=== PATIENT | female | born 1950 | race Caucasian/White ===

== ENCOUNTER 2024-01-07 11:13 | Outpatient (AMB) | payer MEDICARE, OTHER, SELFPAY ==
--- NOTE | 2024-01-07 11:15 | A.OFFPC_ITS ---
Vital Signs 01/07/24 11:16 Height 5 ft 5 in Weight 171 lb BMI 28.5 BP 118/62 Blood Pressure Location Lt brachial Position Sitting Respiration 12 Pulse 77 Pulse Source Pulse Oximeter Pulse Oximetry (%) 100 Oxygen Delivery Method Room Air Intake Visit Reasons: new patient/ FU DIZZY Intake Note: I am so. Patient was seen at [facility] ER and had an MRI. Orthophoto Tech/Draftsman Required: No Accompanied by: Self / Same As Patient Allergies zpack Allergy (Severe, Uncoded 01/07/24 11:29) Diarrhea Medication List - Last Reconciled 01/07/24 by Shirley Osman MD amlodipine 10 mg PO DAILY calcium carbonate 1,200 mg PO DAILY cholecalciferol (vitamin D3) 25 mcg PO DAILY coQ10 (ubiquinol) (Qunol Jarrod CoQ10) 300 mg PO DAILY hydrochlorothiazide 25 mg PO QAM moexipril 15 mg PO DAILY pravastatin 20 mg PO DAILY prednisone 40 mg (2 x 20 mg) PO DAILY 5 days Tobacco use date assessed: 01/07/24 Fall risk assessment: No Falls in past year Last assessed Fall Risk: 01/07/24 Dental Screening Dental Screen Date: 01/07/24 Did you have a dental visit in the last 12 months?: Yes Did you have a dental problem in the last 6 months where you did not have access to dental care?: No Was dental information given to patient?: Patient has dentist HPI HPI Comments History of Present Illness Details The patient is a 73 year old female with a past medical history of hypertension, hyperlipidemia, RAMONE, osteoarthritis, follow-up Cardiovascular: On Norvasc 10 mg daily, moexipril 15 mg daily, hydrochlorothia zide 25 mg daily, pravastatin, Co Q10. She denies chest pain, palpitations. No exertional dyspnea. In 2022 experienced some palpitations. Saw Cardiology Dr. West. She had a heart monitor study without worrisome arrhythmia She has been having issues with vertigo since January 2023. I put in a referral to vestibular rehab at our last visit in August. She has had a nuclear stress test, echo and MRI. She was seen in the ER on November 29 2023 after presenting for dizziness. It had worsened for the month prior. Precipitated by head movements. ACS work up negative. Troponin 14. CT without acute cranial pathology and CTA without proximal occlusion or high-grade stenosis in the major arteries of the head and neck. She was discharged on meclizine She would like to do vestibular rehab again but forgets the name of the facility she would like to go to and plans to call with that information MSK: Bilateral shoulder pain. Her right hand pulse is asleep. Right wrist pain. Pain in the base of the metatarsophalangeal between the 3rd and 2nd toes. Increased bilateral knee pain for the past 6 weeks. No swelling or redness. Does a lot of yard work and gardening RAMONE: On CPAP. Says she had a study performed yesterday Mammo 06/22/2023 Cologuard 01/2022 ROS see HPI PHYSICAL EXAM: GENERAL: Alert and oriented x 3. NAD EYES: EOMI. Anicteric. HENT: Moist mucous membranes. No scleral icterus. No cervical lymphadenopathy. LUNGS: Clear to auscultation bilaterally. CARDIOVASCULAR: Regular rate and rhythm. No murmur. No JVD. ABDOMEN: Soft, non-tender +bs EXTREMITIES: No edema. Non-tender. SKIN: No rashes or lesions. Warm. NEUROLOGIC: No focal neurological deficits. CN II-XII grossly intact PSYCHIATRIC: Cooperative. Appropriate mood and affect. 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 1. Little interest or pleasure in doing things: not at all 2. Feeling down, depressed, or hopeless: not at all 3. Trouble falling or staying asleep, or sleeping too much: not at all 4. Feeling tired or having little energy: not at all 5. Poor appetite or overeating: not at all 6. Feeling bad about yourself - or that you are a failure or have let yourself or your family down: not at all 7. Trouble concentrating on things, such as reading the newspaper or watching television: not at all 8. Moving or speaking so slowly that other people could have noticed. Or the opposite - being so fidgety or restless that you have been moving around a lot more than usual: not at all 9. Thoughts that you would be better off or of hurting yourself in some way: not at all Total score: 0 Depression Screening Interpretation: Negative (Neg) Depression Screening Done: Yes 49675 - PHQ-9 Billing: Yes Source: Developed by Drs. Todd Coombs, Evangelina Galvin, Morgan Grant and colleagues, with an educational dena from [employer]. Thrive Questionnaire Date Thrive assessed: 01/07/24 I am a: Patient What is your living situation today?: I have a steady place to live Within the past 12 months, did the food you bought not last and you didn't have the money to get more?: Never true Within the past 12 months, did you worry whether your food would run out before you got money to buy more?: Never true Do you have trouble paying for medicines?: No Do you have trouble getting transportation to medical appointments?: No Do you have trouble paying your heating and electricity bill?: No Do you have trouble taking care of your child, family member or friend?: No Do you have trouble with day-to-day activities such as bathing, preparing meals, shopping, managing finances, etc.?: No Are you currently unemployed and looking for a job?: No Are you interested in more education?: Yes Please select the resources that you would like help with: None Currently or been in a relationship where the following occur: No concerns reported THRIVE Score: 0 AUDIT C Alcohol Use Questionnaire (AUDIT-C) 1. How often do you have a drink containing alcohol?: 2-3 times a week 2. How many drinks containing alcohol do you have on a typical day when you are drinking?: 1 or 2 3. How often do you have six or more drinks on one occasion?: Never Total Score: 3 YUNIOR-7 AMB Questionnaire YUNIOR-7 Date YUNIOR - 7 assessed: 01/07/24 Feeling nervous, anxious, or on edge: 0 = Not at all Not being able to stop or control worryin = Not at all Worrying too much about different things: 0 = Not at all Trouble relaxin = Not at all Being so restless that it is hard to sit still: 0 = Not at all Becoming easily annoyed or irritable: 0 = Not at all Feeling afraid as if something awful might happen: 0 = Not at all Total YUNIOR-7 score (0-4 normal; 5-9 mild; 10-14 moderate; 15-21 severe): 0 Source: Developed by Drs. Todd Coombs, Evangelina Galvin, Morgan Grant and colleagues, with an educational dena from [employer]. YUNIOR-7 Assessment Billing YUNIOR-7 Assessment Tool: YUNIOR-7 Assessment 12681 Physical exam (Primary Care) Vital Signs: Last Vital Signs Pulse 77 01/07/24 11:16 Resp 12 01/07/24 11:16 BP 118/62 01/07/24 11:16 Pulse Ox 100 01/07/24 11:16 Oxygen Delivery Method Room Air 01/07/24 11:16 BMI result Body Mass Index 28.5 Tobacco/Smoking Status: Tobacco use Status Tobacco use date assessed 01/07/24 01/07/24 11:35 Patient Tobacco Use Status Never used Tobacco 01/07/24 11:35 e-Cigarette/Vaping Use Never Used 01/07/24 11:35 PHQ-9: PHQ-9 Score PHQ-9: Total score 0 01/07/24 11:59 Depression Screening Interpretation: Negative (Neg) Thrive Assessment: Date of Thrive Assessment Date Thrive assessed 01/07/24 01/07/24 11:15 Currently or been in a relationship where the following occur: No concerns reported Assessment and Plan Assessment & Plan (1) Prediabetes: Code(s): R73.03 - Prediabetes Plan: Check A1C. Low carb diet (2) BPPV (benign paroxysmal positional vertigo): Code(s): H81.10 - Benign paroxysmal vertigo, unspecified ear Qualifiers: Laterality: unspecified laterality Qualified Code(s): H81.10 - Benign paroxysmal vertigo, unspecified ear (3) Bilateral knee pain: Code(s): M25.561 - Pain in right knee; M25.562 - Pain in left knee Qualifiers: Chronicity: acute Qualified Code(s): M25.561 - Pain in right knee; M25.562 - Pain in left knee Plan: Will trial prednisone course. Would consider ortho if no improvement on prednisone (4) Hypertension: Code(s): I10 - Essential (primary) hypertension Qualifiers: Hypertension type: primary hypertension Qualified Code(s): I10 - Essential (primary) hypertension Plan: Controlled Orders: Orders Hemoglobin A1c Today E78.5 - Hyperlipidemia, unspecified, I10 - Essential (primary) hypertension, I65.29 - Occlusion and stenosis of unspecified carotid artery, R53.83 - Other fatigue Lyme IgG/IgM w/reflex to WB Today H81.10 - Benign paroxysmal vertigo, unspecified ear, M25.561 - Pain in right knee, M25.562 - Pain in left knee Vitamin B12 and Folate Today E78.5 - Hyperlipidemia, unspecified, I65.29 - Occlusion and stenosis of unspecified carotid artery, R53.83 - Other fatigue Comprehensive Met. Panel Today E78.5 - Hyperlipidemia, unspecified, I10 - Essential (primary) hypertension, I65.29 - Occlusion and stenosis of unspecified carotid artery, R53.83 - Other fatigue Medications: New prednisone 40 mg (2 x 20 mg) PO DAILY 5 days 10 tabs 0RF Coding Level of Care Code Est Pt Level 5 (65122) Diagnoses Prediabetes R73.03 Benign paroxysmal positional vertigo, unspecified laterality H81.10 Laterality: unspecified laterality Acute pain of both knees M25.561; M25.562 Chronicity: acute Primary hypertension I10 Hypertension type: primary hypertension Additional Codes UYNIOR-7 Assessment Billing - YUNIOR-7 Assessment Tool: YUNIOR-7 Assessment 33095 ([id number]) Time Spent (min) 52
[2024-01-07 11:16] VITALS: BP 118/62; PULSE 77; RESP 12; O2SAT 100; BMI 28.5
== END 2024-01-07 12:24 | disposition home or self-care (01) ==
PROVIDERS: PCP Internal Medicine; Visit Provider Internal Medicine
DX: R73.03 Prediabetes (principal); H81.13 Benign paroxysmal vertigo, bilateral; M25.561 Pain in right knee; M25.562 Pain in left knee; I10 Essential (primary) hypertension
CPT/HCPCS: 99215

== ENCOUNTER 2024-01-10 07:59 | Outpatient (REF) | payer MEDICARE, OTHER, SELFPAY ==
[2024-01-10 12:15] LABS: Estimated Average Glucose 114 mg/dL; Hemoglobin A1C 136.0797 umol/L; Hemoglobin A1c % 5.6 % (<6.0)
[2024-01-10 12:31] LABS: Folate 14.3 ng/mL (> or = 4.0); Vitamin B12 537 pg/mL (200-900)
[2024-01-10 12:38] LABS: Alanine Aminotransferase 23 U/L (0-31); Albumin Level 4.5 g/dL (3.5-5.0); Alkaline Phosphatase 75 U/L (39-117); Anion Gap 14 (12-20); Aspartate Amino Transferase 28 U/L (5-31); Bilirubin Total 0.8 mg/dL (0.0-1.0); Blood Urea Nitrogen 16 mg/dL (9-16); Calcium 10.2 mg/dL (8.4-10.2); Carbon Dioxide 28 mmol/L (22-29); Chloride 103 mmol/L (96-108); Estimated Glomerular Filt Rate > 60; Glucose Random 88 mg/dL (60-115); Potassium 3.4 mmol/L (3.3-5.1); Sodium 142 mmol/L (135-145); Total Protein 7.6 g/dL (6.5-8.0)
[2024-01-11 21:58] LABS: Lyme Abs Screen <0.90 index
== END 2024-01-10 08:00 | disposition home or self-care (01) ==
LOC: HO.WFDLDS 07:59
PROVIDERS: Visit Provider Internal Medicine
DX: R53.83 Other fatigue (principal); E78.5 Hyperlipidemia, unspecified; I65.29 Occlusion and stenosis of unspecified carotid artery; I10 Essential (primary) hypertension; M25.561 Pain in right knee; M25.562 Pain in left knee; H81.10 Benign paroxysmal vertigo, unspecified ear; Z13.1 Encounter for screening for diabetes mellitus
CPT/HCPCS: 36415; 80053; 82607; 82746; 83036; 86617; 86618

== ENCOUNTER 2024-03-07 08:00 | Outpatient (RCR) | payer MEDICARE, OTHER, SELFPAY ==
[2024-01-27 07:00] VITALS: BP 106/64; PULSE 86; O2SAT 98
--- NOTE | 2024-01-27 12:47 | MHC.PT.EP ---
[facility] [place] Office [place] Office [place] Office [address] Dorothy Ocampo [address] [phone] F: [phone] F: [phone] F: [phone] F: [phone] Physical Therapy Plan of Care Date of Evaluation: 01/27/24 Date of Surgery: n/a Diagnosis: H81.10 Benign paroxysmal positional vertigo, unspecified ear BPPV, vestibular rehab 2-3x/week for 2 weeks signed by Shirley Osman MD 01/20/24 Assessment: Pt is a RHD 73 y/o female, referred to PT from PCP Dr. Osman for treatment of H81.10 Benign paroxysmal positional vertigo, unspecified ear BPPV, vestibular rehab 2-3x/week for 2 weeks signed by Shirley Osman MD 01/20/24. Pt has had cardiac workup including: Details The patient is a 73 year old female with a past medical history of hypertension, hyperlipidemia, RAMONE, osteoarthritis, follow-up Cardiovascular: On Norvasc 10 mg daily, moexipril 15 mg daily, hydrochlorothiazide 25 mg daily, pravastatin, Co Q10. She denies chest pain, palpitations. No exertional dyspnea. In 2022 experienced some palpitations. Saw Cardiology Dr. West. She had a heart monitor study without worrisome arrhythmia. She has been having issues with vertigo since January 2023. I put in a referral to vestibular rehab at our last visit in August. She has had a nuclear stress test, echo and MRI. She was seen in the ER on November 29 2023 after presenting for dizziness. It had worsened for the month prior. Precipitated by head movements. ACS work up negative. Troponin 14. CT without acute cranial pathology and CTA without proximal occlusion or high-grade stenosis in the major arteries of the head and neck. She was discharged on meclizine. Pt exhibits negative Baudilio Hallpike screening L>R, negative Romberg test, negative oculomotor screen. She (+) R cervical quadrant testing, mild pain/ache with R UT region, tightness was formerly swimming not as much recently. Pt may benefit from attending skilled PT services 1-2x/week for a gentle cervical stab/stretching/ postural program to improve sx and reduce neck pain. Pt reports recently performing some overhead work removing screens, gardening tasks which seem to have irritated her neck. She reports some parathesias in her R hand, at times but denies radiating parathesias sx down her shoulder<> forearm. Post evaluation we discussed use of a lumbar roll and positions to ease her neck pain with reading. She was educated re: negative screening of [place] Hallpike/BPPV at time of initial evaluation. Frequency and Duration: The patient will be seen 2x/week x 2 weeks Short Term Goals: 1. No vertigo with bed mobility. 2. Pt will express 25% reduction in neck pain on the right side. 3. Pt will demonstrate L cervical rotation to 60 degrees. 4. Pt will increase strength of scapular stabilizers to 4/5. Investigator Operator Goals: 1. I HEP for postural/cervical stab program. 2. Improve length of pectoralis musculature by 25%. 3. Pt will improve strength of lower trap/middle trap by 5/5. 4. Pt will demonstrate good body mechanics 3:3 trials. 5. Rise from squat position with good balance. Treatment Plan: Modalities to reduce pain, spasms and effusion. Manual therapy to restore motion and function. Therapeutic exercise to improve strength and flexibility. Neuromuscular re-education for posture and balance. Therapeutic activities to return to functional activities of daily living. Electronically signed by: Mariana Smart, PT, DPT Please sign and return to therapist. Thank you for your referral.
--- NOTE | 2024-02-01 12:40 | MHC.PT.EP ---
[facility] [place] Office [place] Office [place] Office [address] Dorothy Ocampo [address] [phone] F: [phone] F: [phone] F: [phone] F: [phone] Physical Therapy Plan of Care Date of Evaluation: 01/27/24 Date of Surgery: n/a Diagnosis: H81.10 Benign paroxysmal positional vertigo, unspecified ear BPPV, vestibular rehab 2-3x/week for 2 weeks signed by Shirley Osman MD 01/20/24 Assessment: Pt is a RHD 73 y/o female, referred to PT from PCP Dr. Osman for treatment of H81.10 Benign paroxysmal positional vertigo, unspecified ear BPPV, vestibular rehab 2-3x/week for 2 weeks signed by Shirley Osman MD 01/20/24. Pt has had cardiac workup including: Details The patient is a 73 year old female with a past medical history of hypertension, hyperlipidemia, RAMONE, osteoarthritis, follow-up Cardiovascular: On Norvasc 10 mg daily, moexipril 15 mg daily, hydrochlorothiazide 25 mg daily, pravastatin, Co Q10. She denies chest pain, palpitations. No exertional dyspnea. In 2022 experienced some palpitations. Saw Cardiology Dr. West. She had a heart monitor study without worrisome arrhythmia. She has been having issues with vertigo since January 2023. I put in a referral to vestibular rehab at our last visit in August. She has had a nuclear stress test, echo and MRI. She was seen in the ER on November 29 2023 after presenting for dizziness. It had worsened for the month prior. Precipitated by head movements. ACS work up negative. Troponin 14. CT without acute cranial pathology and CTA without proximal occlusion or high-grade stenosis in the major arteries of the head and neck. She was discharged on meclizine. Pt exhibits negative Baudilio Hallpike screening L>R, negative Romberg test, no abnormalities w/ oculomotor screen. She (+) R cervical quadrant testing, mild pain/ache with R UT region, tightness was formerly swimming not as much recently. Pt may benefit from attending skilled PT services 1-2x/week for a gentle cervical stab/stretching/ postural program to improve sx and reduce neck pain. Pt reports recently performing some overhead work removing screens, gardening tasks which seem to have irritated her neck. She reports some parathesias in her R hand, at times but denies radiating parathesias sx down her shoulder<> forearm. Post evaluation we discussed use of a lumbar roll and positions to ease her neck pain with reading. She was educated re: negative screening of Baudilio Hallpike/BPPV at time of initial evaluation. Frequency and Duration: The patient will be seen 2x/week x 2 weeks Short Term Goals: 1. No vertigo with bed mobility. 2. Pt will express 25% reduction in neck pain on the right side. 3. Pt will demonstrate L cervical rotation to 60 degrees. 4. Pt will increase strength of scapular stabilizers to 4/5. Long-Term Goals: 1. I HEP for postural/cervical stab program. 2. Improve length of pectoralis musculature by 25%. 3. Pt will improve strength of lower trap/middle trap by 5/5. 4. Pt will demonstrate good body mechanics 3:3 trials. 5. Rise from squat position with good balance. Treatment Plan: Modalities to reduce pain, spasms and effusion. Manual therapy to restore motion and function. Therapeutic exercise to improve strength and flexibility. Neuromuscular re-education for posture and balance. Therapeutic activities to return to functional activities of daily living. Electronically signed by: Mariana Smart, PT, DPT Please sign and return to therapist. Thank you for your referral.
== END 2024-05-30 08:21 | disposition home or self-care (01) ==
LOC: HO.PTWFD 08:00
PROVIDERS: PCP Internal Medicine; Visit Provider Internal Medicine
DX: H81.10 Benign paroxysmal vertigo, unspecified ear (principal)
CPT/HCPCS: 97110; 97140; 97161

== ENCOUNTER 2024-07-18 08:19 | Outpatient (AMB) | payer MEDICARE, OTHER, SELFPAY ==
--- NOTE | 2024-07-18 08:27 | MHC.PC.OV ---
Vital Signs 07/18/24 08:47 Height 5 ft 5 in Weight 182 lb 6 oz BMI 30.3 BP 136/56 L Blood Pressure Location Lt brachial Position Sitting Respiration 14 Pulse 52 Pulse Source Pulse Oximeter Pulse Oximetry (%) 99 Oxygen Delivery Method Room Air Intake Visit Reasons: awv Allergies zpack Allergy (Severe, Uncoded 07/18/24 08:30) Diarrhea Medication List - Last Reconciled 07/18/24 by Shirley Osman MD amlodipine 10 mg PO DAILY calcium carbonate 1,200 mg PO DAILY cholecalciferol (vitamin D3) 25 mcg PO DAILY coQ10 (ubiquinol) (Qunol Jarrod CoQ10) 300 mg PO DAILY hydrochlorothiazide 25 mg PO QAM moexipril 15 mg PO DAILY pravastatin 20 mg PO DAILY [wellness tablets .] Tobacco use date assessed: 07/18/24 Fall risk assessment: No Falls in past year Last assessed Fall Risk: 07/18/24 Dental Screening Dental Screen Date: 07/18/24 Did you have a dental visit in the last 12 months?: Yes Did you have a dental problem in the last 6 months where you did not have access to dental care?: No Was dental information given to patient?: Patient has dentist HPI HPI Comments History of Present Illness Details The patient is a 73 year old female with a past medical history of hypertension, hyperlipidemia, RAMONE, osteoarthritis, presenting for MWV Cardiovascular: On Norvasc 10 mg daily, moexipril 15 mg daily, hydrochlorothiazide 25 mg daily, pravastatin, Co Q10. 136/54. She denies chest pain, palpitations. No exertional dyspnea. In 2022 experienced some palpitations. Saw Cardiology Dr. West. She had a heart monitor study without worrisome arrhythmia Neuro: She has been having issues with vertigo since January 2023. Did vestibular rehab, still having balance issues She has had a nuclear stress test, echo and MRI. She was seen in the ER on November 29 2023 after presenting for dizziness. It had worsened for the month prior. Precipitated by head movements. ACS work up negative. Troponin 14. CT without acute cranial pathology and CTA without proximal occlusion or high-grade stenosis in the major arteries of the head and neck. She was discharged on meclizine MSK: Bilateral shoulder pain, left>right. Increased bilateral knee. No swelling or redness. Does a lot of yard work and gardening and swims regularly RAMONE: On CPAP. Mammo 06/22/2023 Cologuard 01/2022 HRA reviewed 07/03 memory No falls Independent ADLs Care team reviewed. ROS see HPI PHYSICAL EXAM: GENERAL: Alert and oriented x 3. NAD EYES: EOMI. Anicteric. HENT: Moist mucous membranes. No scleral icterus. No cervical lymphadenopathy. LUNGS: Clear to auscultation bilaterally. CARDIOVASCULAR: Regular rate and rhythm. No murmur. No JVD. ABDOMEN: Soft, non-tender +bs EXTREMITIES: No edema. Non-tender. SKIN: Scattered nevi Warm. NEUROLOGIC: No focal neurological deficits. CN II-XII grossly intact PSYCHIATRIC: Cooperative. Appropriate mood and affect. 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 occupational exposures/hazards: No Cognitive needs: No Hearing needs: No Vision needs: Yes (wears glasses) Questionnaire Thrive Questionnaire Date Thrive assessed: 07/18/24 I am a: Patient What is your living situation today?: I have a steady place to live Within the past 12 months, did the food you bought not last and you didn't have the money to get more?: Never true Within the past 12 months, did you worry whether your food would run out before you got money to buy more?: Never true Do you have trouble paying for medicines?: No Do you have trouble getting transportation to medical appointments?: No Do you have trouble paying your heating and electricity bill?: No Do you have trouble taking care of your child, family member or friend?: No Do you have trouble with day-to-day activities such as bathing, preparing meals, shopping, managing finances, etc.?: No Are you currently unemployed and looking for a job?: No Are you interested in more education?: Yes Please select the resources that you would like help with: None Currently or been in a relationship where the following occur: No concerns reported THRIVE Score: 0 AUDIT C Alcohol Use Questionnaire (AUDIT-C) 1. How often do you have a drink containing alcohol?: Monthly or less 2. How many drinks containing alcohol do you have on a typical day when you are drinking?: 1 or 2 3. How often do you have six or more drinks on one occasion?: Never Total Score: 1 YUNIOR-7 AMB Questionnaire YUNIOR-7 Date YUNIOR - 7 assessed: 01/07/24 Source: Developed by Drs. Todd Coombs, Evangelina Galvin, Morgan Grant and colleagues, with an educational dena from [employer]. Physical exam (Primary Care) Tobacco/Smoking Status: Tobacco use Status Tobacco use date assessed 07/18/24 07/18/24 08:38 Patient Tobacco Use Status Former Tobacco user 07/18/24 08:38 e-Cigarette/Vaping Use Never Used 07/18/24 08:30 Thrive Assessment: Date of Thrive Assessment Date Thrive assessed 07/18/24 07/18/24 08:30 Currently or been in a relationship where the following occur: No concerns reported Coding Level of Care Code Est Pt Level 4 (94927) Diagnoses Medicare annual wellness visit, subsequent Z00.00 Acute pain of both knees M25.561; M25.562 Chronicity: acute Assessment & Plan Assessment & Plan (1) Medicare annual wellness visit, subsequent: Code(s): Z00.00 - Encounter for general adult medical examination without abnormal findings Category: Medical Plan: see HPI HRA scanned Chronic medical conditions reviewed Interval history reviewed Medications reconciled labs today (2) Bilateral knee pain: Code(s): M25.561 - Pain in right knee; M25.562 - Pain in left knee Category: Medical Qualifiers: Chronicity: acute Qualified Code(s): M25.561 - Pain in right knee; M25.562 - Pain in left knee Plan: Referral to ortho Orders: Orders Complete Blood Count Auto Diff Today E78.5 - Hyperlipidemia, unspecified, I10 - Essential (primary) hypertension, R73.03 - Prediabetes Hemoglobin A1c Today E78.5 - Hyperlipidemia, unspecified, I10 - Essential (primary) hypertension, R73.03 - Prediabetes Lipid Panel Today E78.5 - Hyperlipidemia, unspecified, I10 - Essential (primary) hypertension, R73.03 - Prediabetes Erythrocyte Sedimentation Rate Today M25.50 - Pain in unspecified joint Lyme IgG/IgM w/reflex to WB Today M25.50 - Pain in unspecified joint Comprehensive Met. Panel Today E78.5 - Hyperlipidemia, unspecified, I10 - Essential (primary) hypertension, R73.03 - Prediabetes Referrals Orthopedics Referral M25.512 - Pain in left shoulder, M25.561 - Pain in right knee, M25.562 - Pain in left knee Neurology Referral E78.5 - Hyperlipidemia, unspecified, I10 - Essential (primary) hypertension, R42 - Dizziness and giddiness, R73.03 - Prediabetes
--- OUTSIDE RECORDS SUMMARY | 2024-07-18 08:30 | XMS_ITS | Encounter Summary ---
Author Organization [facility] Address [address] [place] [address] Care Team Providers Care Freight Traffic Consultant Name Role Phone Aroldo Rojo Primary Care Provider Shirley Gilliland MD Primary Care Provider Donald ward Encounter Details Date Type Department Care Team Description 01/26/2019 SCAN Medical Records [address] [place] [address] Lisa Chakraborty MD Social History Tobacco Use Types Packs/Day Years Used Date Smoking Tobacco: Never Smokeless Tobacco: Never Alcohol Use Standard Drinks/Week Comments Yes 0 (1 standard drink = 0.6 oz pur e alcohol) occasional Sex Assigned at Date Recorded Not on file Job Start Date Occupation Industry Not on file Not on file Not on file documented as of this encounter Plan of Treatment Not on file documented as of this encounter Procedures Procedure Name Priority Date/Time Associated Diagnosis Comments OUTSIDE SLEEP STUDY Routine 01/26/2019 documented in this encounter Results * OUTSIDE SLEEP STUDY (01/26/2019) Provider Default PULMONOLOGY documented in this encounter Visit Diagnoses Not on filedocumented in this encounter Care Teams Freight Traffic Consultant Relationship Specialty Start Date End Date Aroldo Rojo PCP - General 07/15/08 12/21/21 Shirley Borjas MD PCP - General Internal Medicine 12/22/21 documented as of this encounter
--- OUTSIDE RECORDS SUMMARY | 2024-07-18 08:30 | XMS_ITS | Encounter Summary ---
Author Organization [facility] Address [address] [place] [address] Care Team Providers Care Wood Calker Name Role Phone Aroldo Rojo Primary Care Provider Shirley Gilliland MD Primary Care Provider Donald ward Encounter Details Date Type Department Care Team Description 05/31/2020 [facility] Medical Records [address] [place] [address] Social History Tobacco Use Types Packs/Day Years [...] Name Priority Date/Time Associated Diagnosis Comments OUTSIDE EKG Routine 05/31/2020 OUTSIDE PLAIN FILM Routine 05/31/2020 documented in this encounter Results * OUTSIDE PLAIN FILM (05/31/2020) Provider Default RADIOLOGY * OUTSIDE EKG (05/31/2020) Provider Default CARDIOLOGY documented in this encounter Visit Diagnoses Not on filedocumented in this encounter Care Teams Wood Calker Relationship Specialty Start Date End Date Aroldo Rojo PCP - General 07/15/08 12/21/21 Shirley oBrjas MD PCP - General Internal Medicine 12/22/21 documented as of this encounter
--- OUTSIDE RECORDS SUMMARY | 2024-07-18 08:30 | XMS_ITS | Continuity of Care Document ---
Author Organization [facility] Address [address] [place] [address]- Care Team Providers Care Washhouse Hand Name Role Phone Dawson SALAS, Shirley Larose Primary Care Physician [facility] [id number] Date(s): 05/31/24 - 06/30/24 [facility] [address] [place], [place] [address] Attending Physician: Admtr, Ar8 Admitting Physician: AdmtrSandee Referring Physician: Admtr, Ar8 Encounter Type: Triage Allergies, Adverse Reactions, Alerts Substance Criticality Severity Reaction Reaction Severity Status Zithromax diarrhea Active Immunizations Given and Recorded Vaccine Date Status Refusal Reason SARS-CoV-2 (COVID-19) mRNA-1273 vaccine 02/13/23 R ecorded SARS-CoV-2 (COVID-19) mRNA-1273 vaccine 08/25/21 R ecorded SARS-CoV-2 (COVID-19) mRNA-1273 vaccine 03/12/21 R ecorded SARS-CoV-2 (COVID-19) mRNA-1273 vaccine 07/31/20 R ecorded SARS-CoV-2 (COVID-19) mRNA-1273 vaccine 07/03/20 R ecorded SARS-CoV-2 (COVID-19) mRNA-1273 vaccine 07/01/20 R ecorded influenza virus vaccine, inactivated 02/13/23 Lio rded influenza virus vaccine, inactivated 04/14/22 Lio rded influenza virus vaccine, inactivated 1 02/26/21 Gi german influenza virus vaccine, inactivated 02/15/19 Give n influenza virus vaccine, inactivated 02/02/18 Lio rded influenza virus vaccine, inactivated 02/24/17 Lio rded influenza virus vaccine, inactivated 01/31/15 Lio rded tetanus/diphtheria/pertussis, acel(Tdap) 2 11/05/22 Recorded tetanus/diphtheria/pertussis, acel(Tdap) 11/09/12 Recorded pneumococcal 20-valent conjugate vaccine 3 11/05/22 Recorded [id number] bivalent booster vax 02/14/22 Recorded Influenza Virus Vaccine (oldterm) 4 12/15/19 Recor ded Typhoid Vaccine, Inactivated 05/31/19 Given zoster vaccine, inactivated 12/06/18 Recorded zoster vaccine, inactivated 08/31/18 Recorded Zoster Vaccine Live 11/04/18 Recorded Zoster Vaccine Live 10/01/14 Recorded pneumococcal 23-valent vaccine 09/02/16 Recorded pneumococcal 13-valent vaccine 04/18/15 Recorded Hepatitis A Adult Vaccine 5 07/17/13 Given Hepatitis A Adult Vaccine 12/07/12 Given Yellow Fever Vaccine 12/07/12 Given Poliovirus Vaccine, Inactivated 12/07/12 Given Typhoid Vaccine, Live 12/07/12 Given 1Result Comment: [facility] [id number] 2[facility] 4Result Comment: high dose .70 ml 5Result Comment: [07/17/2013] hep A #2 Medications calcium (as carbonate)-vitamin D 600 mg-800 intl units oral tablet 1 tablet, By Mouth, 2 times a day, # 60 tablet, 0 Refills, Maintenance, 08/16/19 9:15:00 AM EDT, Tablet Start Date: 08/16/19 Status: Ordered Quantity: 60.0 Unit: tablet Repeat number: 1 Co Q-10 = 100 mg, By Mouth, Daily, 0 Refills, Maintenance, 11/02/18 2:16:43 PM EDT Start Date: 11/02/18 Status: Ordered Repeat number: 1 hydrochlorothiazide 25 mg oral tablet 25 mg, 1, tablet, By Mouth, Daily, # 90 tablet, Refills 3, Tot. Refills 3, Maintenance, 06/04/23 2:29:00 PM EST, Route to Pharmacy Electronically, [facility]/pharmacy #[id number], Partial fill upon patient request if the prescription is for a schedule II opioid drug., 164.5, cm, 06/04/23 13:59:00 EST, Height Start Date: 06/04/23 Status: Ordered Quantity: 90.0 Unit: tablet Repeat number: 4 meclizine 25 mg oral tablet 1 tablet = 25 mg, By Mouth, 3 times a day, PRN for dizziness, # 30 tablet, 0 Refills, Maintenance, 11/30/23 7:52:00 AM EDT, Tablet, [facility]/pharmacy #[id number], Partial fill upon patient request if the prescription is for a schedule II opioid drug., 165, cm, 11/30/23 5:33:00 EDT, Height, 80, kg, 11/30/23 5:33:00 EDT, Dry Weight Start Date: 11/30/23 Status: Ordered Quantity: 30.0 Unit: tablet Repeat number: 1 moexipril 15 mg oral tablet 1 tablet = 15 mg, By Mouth, Daily, # 90 tablet, 3 Refills, Maintenance, 06/04/23 2:29:00 PM EST, Tablet, [facility]/pharmacy #[id number], Partial fill upon patient request if the prescription is for a schedule II opioid drug., 164.5, cm, 06/04/23 13:59:00 EST, Height Start Date: 06/04/23 Status: Ordered Quantity: 90.0 Unit: tablet Repeat number: 4 Multivitamin By Mouth, Daily, 0 Refills, Maintenance, 08/11/11 10:33:22 AM EDT Start Date: 08/11/11 Status: Ordered Repeat number: 1 pravastatin 20 mg oral tablet 1, tablet, By Mouth, Daily, # 90 tablet, Refills 3, Tot. Refills 3, Maintenance, 06/04/23 2:29:00 PM EST, Route to Pharmacy Electronically, [facility]/pharmacy #[id number], 164.5, cm, 06/04/23 13:59:00 EST, Height Start Date: 06/04/23 Status: Ordered Quantity: 90.0 Unit: tablet Repeat number: 4 Zinc = 140 mg, By Mouth, Daily, 0 Refills, Maintenance, 05/11/22 10:07:00 AM EST, Partial fill upon patient request if the prescription is for a schedule II opioid drug. Start Date: 05/11/22 Status: Ordered Repeat number: 1 Problem List Condition Confirmation Course Effective Dates Status Health Status Informant Benign hypertension Confirmed Active Carotid atherosclerosis Confirmed Active Diabetes mellitus Confirmed Active Headache Confirmed Active Heart murmur Confirmed Active Hypercholesterolemia Confirmed Active Hypokalemia Confirmed Active Left ventricular hypertrophy Confirmed Active Low back pain Confirmed Active Menopause present Confirmed Active Overweight Confirmed Active Palpitations Confirmed Active Vital Signs Most recent to oldest [Reference Range]: 1 Height 166 cm (01/24/19 1:44 PM) Weight 76.9 kg (01/24/19 1:44 PM) Social History Social History Type Response Smoking Status Former smoker, quit more than 30 days ago; Type: Cigarettes; Tobacco use times per day: While studying, unknown amount; Started at age: 20; Stopped at age: 21; entered on: 12/18/21 Sex Sex Representation Female (finding) Patient Care team information Care Team Personnel Name: Dawsno SALAS, Shirley Larose Position: Reference Physician Member Role: PCP Address: [address] [place], [place] [address] Telecom: Care Team Related Persons Name: GEOFF MOSS Name: ESTELLA ESQUIVEL Name: TRAY ESQUIVEL Insurance Providers Guarantor name: GAMALIEL ESQUIVEL Health Plan Information #: 1 Payer: MEDICARE PART B OUTPT Member Number: NA Policy Number: NA Group Number: NA Health Plan Information #: 2 Payer: [facility] Member Number: NA Policy Number: NA Group Number: NA
--- OUTSIDE RECORDS SUMMARY | 2024-07-18 08:30 | XMS_ITS | Encounter Summary ---
Author Organization [facility] Address [address] [place] [address] Care Team Providers Care Dining Room Manager Name Role Phone Shirley Borjas MD Primary Care Provider Donald ward Encounter Details Date Type Department Care Team Description 09/11/2022 SCAN Medical Records [address] [place] [address] [facility] Social History Tobacco Use Types Packs/Day Years [...] on file documented as of this encounter Visit Diagnoses Not on filedocumented in this encounter Care Teams Dining Room Manager Relationship Specialty Start Date End Date Shirley Borjas MD PCP - General Internal Medicine 12/22/21 documented as of this encounter
--- OUTSIDE RECORDS SUMMARY | 2024-07-18 08:30 | XMS_ITS | Encounter Summary ---
Author Organization [facility] Address [address] [place] [address] Care Team Providers Care Power Transformer Repair Supervisor Name Role Phone Aroldo Rojo Primary Care Provider Shirley Gilliland MD Primary Care Provider Donald ward Encounter Details Date Type Department Care Team Description 11/10/2006 SCAN Medical Records [address] [place] [address] Abstract, Provider Social History Tobacco Use Types Packs/Day Years Used Date Smoking Tobacco: Never Alcohol Use Standard Drinks/Week Comments [...] Name Priority Date/Time Associated Diagnosis Comments OUTSIDE VASCULAR STUDY Routine 11/10/2006 documented in this encounter Results * OUTSIDE VASCULAR STUDY (11/10/2006) Provider Default CARDIOLOGY documented in this encounter Visit Diagnoses Not on filedocumented in this encounter Care Teams Power Transformer Repair Supervisor Relationship Specialty Start Date End Date Aroldo Rojo PCP - General 07/15/08 12/21/21 Shirley Borjas MD PCP - General Internal Medicine 12/22/21 documented as of this encounter
--- OUTSIDE RECORDS SUMMARY | 2024-07-18 08:30 | XMS_ITS | Encounter Summary ---
Author Organization [facility] Address [address] [place] [address] Care Team Providers Care Studio Operation Engineer Name Role Phone Aroldo Rojo Primary Care Provider Shirley Gilliland MD Primary Care Provider Donald ward Encounter Details Date Type Department Care Team Description 09/02/2005 SCAN Medical Records [address] [place] [address] Abstract, Provider Social History Tobacco Use Types Packs/Day Years Used Date Smoking Tobacco: Never Assessed Sex Assigned at Date Recorded Not on file Job Start Date Occupation Industry Not on file Not on file Not on file documented as of this encounter Plan of Treatment Not on file documented as of this encounter Procedures Procedure Name Priority Date/Time Associated Diagnosis Comments OUTSIDE ECHO Routine 09/02/2005 documented in this encounter Results * OUTSIDE ECHO (09/02/2005) Provider Default CARDIOLOGY documented in this encounter Visit Diagnoses Not on filedocumented in this encounter Care Teams Studio Operation Engineer Relationship Specialty Start Date End Date Aroldo Rojo PCP - General 07/15/08 12/21/21 Shirley Borjas MD PCP - General Internal Medicine 12/22/21 documented as of this encounter
--- OUTSIDE RECORDS SUMMARY | 2024-07-18 08:30 | XMS_ITS | Encounter Summary ---
Author Organization [facility] Address [address] [place] [address] Care Team Providers Care Forming Department Supervisor Name Role Phone Aroldo Rojo Primary Care Provider Shirley Gilliland MD Primary Care Provider Donald ward Encounter Details Date Type Department Care Team Description 07/03/2020 Production Counter Report Medical Records [address] [place] [address] Dima West MD Social History Tobacco Use Types Packs/Day [...] on filedocumented in this encounter Care Teams Forming Department Supervisor Relationship Specialty Start Date End Date Aroldo Rojo PCP - General 07/15/08 12/21/21 Shirley Borjas MD PCP - General Internal Medicine 12/22/21 documented as of this encounter
--- OUTSIDE RECORDS SUMMARY | 2024-07-18 08:30 | XMS_ITS | Encounter Summary ---
Author Organization [facility] Address [address] [place] [address] Care Team Providers Care Carpenter Foreman Name Role Phone Aroldo Rojo Primary Care Provider Shirley Gilliland MD Primary Care Provider Donald ward Encounter Details Date Type Department Care Team Description 12/11/2021 Business Doc Medical Records [address] [place] [address] Abstract, Provider Social History Tobacco Use Types Packs/Day Years Used Date Smoking Tobacco: Never Smokeless Tobacco: Never Alcohol Use Standard Drinks/Week Comments Yes 0 (1 standard drink = 0.6 oz pur e alcohol) occasional Sex Assigned at Date Recorded Not on file Job Start Date Occupation Industry Not on file Not on file Not on file COVID-19 Exposure Response Date Recorded In the last 10 days, have yo u been in contact with someone who was confirmed or suspected to have Coronavirus/COVID-19? No / Unsure 12/10/2021 7:24 AM EDT documented as of this encounter Plan of Treatment Not on file documented as of this encounter Visit Diagnoses Not on filedocumented in this encounter Care Teams Carpenter Foreman Relationship Specialty Start Date End Date Aroldo Rojo PCP - General 07/15/08 12/21/21 Shirley Borjas MD PCP - General Internal Medicine 12/22/21 documented as of this encounter
--- OUTSIDE RECORDS SUMMARY | 2024-07-18 08:30 | XMS_ITS | Encounter Summary ---
Author Organization [facility] Address [address] [place] [address] Care Team Providers Care Wooden Furniture Polisher Name Role Phone Aroldo Rojo Primary Care Provider Shirley Gilliland MD Primary Care Provider Donald ward Encounter Details Date Type Department Care Team Description 12/24/2014 SCAN Medical Records [address] [place] [address] Abstract, Provider Social History Tobacco Use Types [...] Date/Time Associated Diagnosis Comments OUTSIDE EKG Routine 12/24/2014 documented in this encounter Results * OUTSIDE EKG (12/24/2014) Provider Default CARDIOLOGY documented in this encounter Visit Diagnoses Not on filedocumented in this encounter Care Teams Wooden Furniture Polisher Relationship Specialty Start Date End Date Aroldo Rojo PCP - General 07/15/08 12/21/21 Shirley Borjas MD PCP - General Internal Medicine 12/22/21 documented as of this encounter
--- OUTSIDE RECORDS SUMMARY | 2024-07-18 08:30 | XMS_ITS | Encounter Summary ---
Author Organization [facility] Address [address] [place] [address] Care Team Providers Care Blanket Inspector Name Role Phone Shirley Borjas MD Primary Care Provider Donald ward Encounter Details Date Type Department Care Team Description 12/22/2021 SCAN Medical Records [address] [place] [address] Abstract, Provider Social History Tobacco Use Types [...] Recorded In the last 10 days, have joseline u been in contact with someone who was confirmed or suspected to have Coronavirus/COVID-19? No / Unsure 12/23/2021 11:08 AM EDT documented as of this encounter Plan of Treatment Not on file documented as of this encounter Procedures Procedure Name Priority Date/Time Associated Diagnosis Comments OUTSIDE LAB Routine 12/22/2021 documented in this encounter Results * OUTSIDE LAB (12/22/2021) Provider Default LAB documented in this encounter Visit Diagnoses Not on filedocumented in this encounter Care Teams Blanket Inspector Relationship Specialty Start Date End Date Shirley Borjas MD PCP - General Internal Medicine 12/22/21 documented as of this encounter
--- OUTSIDE RECORDS SUMMARY | 2024-07-18 08:30 | XMS_ITS | Clinical Summary ---
Author Organization [facility] Address [address] [place] [address] Care Team Providers Care Employee Operations Examiner Name Role Phone Shirley Borjas MD Primary Care Provider Unavaila ble Allergies Active Allergy Reactions Severity Noted Date Comments Azithromycin Dihydrate Nausea and Vomiting 07/02 Medications Medication Sig Dispensed Refills Start Date End Date Status AMLODIPINE BESYLATE 10 MG OR TABS 1 TABLET DAILY 0 08/09/2007 Active MOEXIPRIL-HYDROCHLOROT HIAZIDE 15-25 MG OR TABS 1 TABLET DAILY ON EMPTY STOMACH 0 08/09/2007 Active lovastatin (MEVACOR) 20 MG tablet Take 1 Tablet by mouth at bedtime. 0 Active Family History Medical History Relation Name Comments No Known Problems Daughter No Known Problems Father No Known Problems Maternal Grandfather No Known Problems Maternal Grandmother No Known Problems Mother No Known Problems Other No Known Problems Paternal Grandfather No Known Problems Paternal Grandmother No Known Problems Sister CA Breast Negative Hx Relation Name Status Comments Daughter Father Maternal Grandfather Maternal Grandmother Mother Other Paternal Grandfather Paternal Grandmother Sister Social History Tobacco Use Types Packs/Day Years Used Date Smoking Tobacco: Never Smokeless Tobacco: Never Tobacco Cessation:Counseling Given: Not Answered Alcohol Use Standard Drinks/Week Comments Yes 0 (1 standard drink = 0.6 oz pur e alcohol) occasional Sex Assigned at Date Recorded Not on file Job Start Date Occupation Industry Not on file Not on file Not on file Last Filed Vital Signs Vital Sign Reading Time Taken Comments Blood Pressure 140/80 06/02/2022 1:54 PM EST Pulse 66 06/02/2022 1:54 PM EST Temperature 36.7 ??C (98 ??F) 09/28/2008 11:51 AM EDT Respiratory Rate 16 10/06/2011 3:01 PM EDT Oxygen Saturation 98% 06/02/2022 1:54 PM EST Inhaled Oxygen Concentration - - Weight 82.4 kg (181 lb 9.6 oz) 06/02/2022 1:54 P M EST Height 162.6 cm (5' 4 ) 06/02/2022 1:54 PM EST Body Mass Index 31.17 06/02/2022 1:54 PM EST Plan of Treatment Health Maintenance Due Date Last Done Comments DEPRESSION SCREEN 1963 HEPATITIS C SCREENING 07/24/1969 COLON CANCER SCREENING 07/24/2001 CHOLESTEROL SCREENING 01/26/2004 01/25/1999 FALL RISK ASSESSMENT 07/24/2016 PNEUMOCOCCAL VACCINE (1 - PCV) 07/24/2016 MAMMOGRAM 12/18/2023 12/17/2022, 12/01, 12/02/2020, Additional history exists BONE DENSITY SCREENING 12/24/2023 12/23/2021, 2015 Covid-19 Vaccine (6 - 2022-2 4 season) 2024 08/25/2021, 03/12/2021, 07/31/2020, Additional history exists INFLUENZA (#1) 2024 02/24/2017 BMI CHECK/ADVISE 05/03/2024 DTAP/TDAP/TD (3 - Td or Tdap) 11/05/2032 11/05/2022, 11/09/2012 SHINGLES VACCINE Completed 12/06/2018, 08/2018, 08/31/2018, Additional history exists Care Teams Employee Operations Examiner Relationship Specialty Start Date End Date Shirley Borjas MD PCP - General Internal Medicine 12/22/21
--- OUTSIDE RECORDS SUMMARY | 2024-07-18 08:30 | XMS_ITS | Encounter Summary ---
Author Organization [facility] Address [address] [place] [address] Care Team Providers Care Ed Transporter Name Role Phone Aroldo Rojo Primary Care Provider Shirley Gilliland MD Primary Care Provider Donald ward Encounter Details Date Type Department Care Team Description 12/12/2013 SCAN Medical Records [address] [place] [id number] Abstract, Provider Social History Tobacco Use Types [...] Associated Diagnosis Comments OUTSIDE VASCULAR STUDY Routine 12/12/2013 documented in this encounter Results * OUTSIDE VASCULAR STUDY (12/12/2013) Provider Default CARDIOLOGY documented in this encounter Visit Diagnoses Not on filedocumented in this encounter Care Teams Ed Transporter Relationship Specialty Start Date End Date Aroldo Rojo PCP - General 07/15/08 12/21/21 Shirley Borjas MD PCP - General Internal Medicine 12/22/21 documented as of this encounter
--- OUTSIDE RECORDS SUMMARY | 2024-07-18 08:30 | XMS_ITS | Encounter Summary ---
Author Organization [facility] Address [address] [place] [address] Care Team Providers Care Student Ministry Pastor Name Role Phone Aroldo Rojo Primary Care Provider Shirley Gilliland MD Primary Care Provider Donald ward Encounter Details Date Type Department Care Team Description 08/19/2016 Business Doc Medical Records [address] [place] [id number] Abstract, Provider Social History Tobacco Use Types [...] on filedocumented in this encounter Care Teams Student Ministry Pastor Relationship Specialty Start Date End Date Aroldo Rojo PCP - General 07/15/08 12/21/21 Shirley Borjas MD PCP - General Internal Medicine 12/22/21 documented as of this encounter
--- OUTSIDE RECORDS SUMMARY | 2024-07-18 08:30 | XMS_ITS | Encounter Summary ---
Author Organization [facility] Address [address] [place] [address] Care Team Providers Care Dry Kiln Loader Name Role Phone Aroldo Rojo Primary Care Provider Shirley Gilliland MD Primary Care Provider Donald ward Encounter Details Date Type Department Care Team Description 12/04/2019 Business Doc Medical Records [address] [place] [address] Abstract, Provider Social History Tobacco Use Types [...] on filedocumented in this encounter Care Teams Dry Kiln Loader Relationship Specialty Start Date End Date Aroldo Rojo PCP - General 07/15/08 12/21/21 Shirley Borjas MD PCP - General Internal Medicine 12/22/21 documented as of this encounter
--- OUTSIDE RECORDS SUMMARY | 2024-07-18 08:30 | XMS_ITS | Encounter Summary ---
Author Organization [facility] Address [address] [place] [address] Care Team Providers Care Ludlow Machine Operator Name Role Phone Aroldo Rojo Primary Care Provider Shirley Gilliland MD Primary Care Provider Donald ward Encounter Details Date Type Department Care Team Description 12/22/2011 Sales Operations Director Report Medical Records [address] [place] [address] Antoine Quevedo Social History Tobacco Use Types Packs/Day Years [...] on filedocumented in this encounter Care Teams Ludlow Machine Operator Relationship Specialty Start Date End Date Aroldo Rojo PCP - General 07/15/08 12/21/21 Shirley Borjas MD PCP - General Internal Medicine 12/22/21 documented as of this encounter
--- OUTSIDE RECORDS SUMMARY | 2024-07-18 08:30 | XMS_ITS | Data Portability ---
Author Organization [place] - [facility],, RADHA SKINNER MD Address [address] [address] Assessment No assessment recorded. Plan of Treatment Reminders Order Date Submit Date Provider Last Modified By Organization Details Last Modified Time Details Appointments None recorded. Lab pap test, thinprep, cervical 2022 023 [facility] (Centralized Electronic Ordering - All Locations), Patient Can Go To The Location Of Their Choice, [id number] 3 07:37:29 pap test, thinprep, cervical 2020 021 [facility], Cytopathology Service, [address] [place], [address], 1 07:39:17 pap test, thinprep, cervical 2018 019 [facility], Cytopathology Service, [address] [place], [address], 9 07:35:32 pap test, thinprep, cervical 2016 017 [facility] Cyt[facility] Service, [address] [place], [address], 7 13:45:59 vitamin D, 25-hydrox y, total, serum 2015 016 [id number] [facility], [address] [place], [address], 6 04:20:30 Referral None recorded. Procedures None recorded. Surgeries None recorded. Imaging MAMMO, screening , digital, bilateral - Breast Aspiratio n and/or Biopsy if needed [address] [facility] ([facility]), [address] [place] [address], [id number], 3 09:26:31 bone density 2022 023 [facility], [address] [place] [address], [address], 5 07:44:16 MAMMO, screening , digital, bilateral [address] [facility], [address] [place] [address], [address], 1 18:06:43 bone density 2020 021 [facility], [address] [place] [address], [address], 2 08:44:20 MAMMO, screening , digital, bilateral 2018 019 [facility], [address] [place] [address], [address], 0 07:31:31 bone density 2018 019 [facility], [address] [place] [address], [address], 0 07:54:53 MAMMO, screening , digital, bilateral [address] [facility] ([facility]), [address] [place] [address], [address], 8 12:02:10 Medication Orders None recorded. Patient TargetsNo targets recorded. Patient Instructions Encounter Date Encounter Id Patient Instructions Last Modified By Organization Details Last Modified Time 12/11/2015 [id number] She is here for discussion of her recent bone density which showed osteopenia with a T score of -1.2 in the left hip. She has a past history of vitamin d deficiency however is not on replacement, check vitamin d level. We discussed her new diagnosis of osteopenia. We reviewed the results of her bone density test, with reference to the computer images. We discussed the way that standard deviation is used for diagnosis, and what this means to her as she ages. Adequate calcium intake of 1500 mg daily, weight bearing exercise three times a week, and vitamin D supplementation of at least 400 units daily is suggested. She is advised to avoid tobacco, coffee, and steroids if possible. Benefits of an active lifestyle discussed as well. All questions answered. We discussed the different forms of medical treatment for osteoporosis, in case she might need this in the future. She will repeat the bone density testing in 2 years to assess her progress.She is aware that if her bone density diminished significantly in the intervening 2 years she may need medical therapy at that time. She is encouraged to try this preventive therapy first. Return for routine annual exam as scheduled. Face to face discussion for 25 minutes. Not available 12/11/2015 10:13:27 11/11/2016 [id number] advance directiv es: care instructions [email or web address] Not available 11/11/2016 09:21:28 atrophic vaginit is: care instructions [email or web address] Not available 11/11/2016 09:21:28 She is here for annual exam, is doing well. Bone density of -1.2 last year. She appears to be doing well. She is advised to get 1500 mg of calcium daily into her diet and supplements combined. We discussed the benefits of adequate vitamin D supplementation to at least 400 units daily, daily aerobic exercise of 30 minutes, and stress reduction. Monthly self breast exam was taught, and stressed, and is advised to call if she discovers any new mass in the breast. Seat belt use for herself and passengers advised. The significant health benefits of becoming and remainig fit, with an optimal BMI, were also discussed. We discussed the potential reduction in chronic discomfort, the diminished risks of hypertension, diabetes, and heart disease with the proper weight management, and improved mobility as she ages. Strategies to reach and maintain her target weight wer discussed in detail, all questions answered. Not available 11/11/2016 08:39:22 11/15/2018 [id number] atrophic vaginit is: care instructions Not available 11/15/2018 11:02:11 She is here for annual exam, is doing well. Her Azam is her health care proxy. She appears to be doing well. She is advised to get 1500 mg of calcium daily into her diet and supplements combined. We discussed the benefits of adequate vitamin D supplementation to at least 400 units daily, daily aerobic exercise of 30 minutes, and stress reduction. Monthly self breast exam was taught, and stressed, and is advised to call if she discovers any new mass in the breast. Seat belt use for herself and passengers advised. The significant health benefits of becoming and remainig fit, with an optimal BMI, were also discussed. We discussed the potential reduction in chronic discomfort, the diminished risks of hypertension, diabetes, and heart disease with the proper weight management, and improved mobility as she ages. Strategies to reach and maintain her target weight wer discussed in detail, all questions answered. Not available 11/15/2018 11:02:15 11/21/2020 [id number] atrophic vaginit is: care instructions Not available 11/21/2020 08:59:17 learning about healthy weight Not available 11/21/2020 08:59:17 She is here for annual exam, is doing well. Her Azam is her health care proxy. She appears to be doing well. She is advised to get 1500 mg of calcium daily into her diet and supplements combined. There is a health benefit with adequate vitamin D supplementation to at least 400 units daily, daily aerobic exercise of 30 minutes, and stress reduction. Monthly self breast exam was taught, and stressed, and is advised to call if she discovers any new mass in the breast. Not available 11/21/2020 08:59:29 12/10/2022 [id number] atrophic vaginit is: care instructions Not available 12/10/2022 08:20:12 learning about healthy weight Not available 12/10/2022 08:20:12 She is here for annual exam, is doing well. Her Azam is her health care proxy. She appears to be doing well. Monthly self breast exam was taught, and stressed, and is advised to call if she discovers any new mass in the breast. Not available 12/10/2022 08:44:03 Reason for Referral None Reported. Results Created Date Observation Date Name Description Value Unit Range Abnormal Flag Note LastModifiedBy Organization Detail LastModifiedTime 11/12/19 16 11/12/2015 fecal occul t blood , stool Occult Blood negati ve Not Available In-Office Order Internal Use Only DO Not Attach Compendium DO Not Attach Compendium, Do Not Delete/merge, [id number] 11/12/2015 08:23:55 11/12/19 16 11/12/2015 pap, LB [id number] ThinP rep Pap, Image d: NEGAT THONY FOR SQUAM OUS INTRA EPITH ELIAL LESIO N AND KWESI DAVID . Abund ant acute infla mmato ry cells are prese nt. Olena Escobedo ams, CT( CP) (Case elect lisa mark negra d 11 13 2015) ADEQU ACY: Satis facto ry. Endoc ervic al/tr ansfo rmati on zone compo nent prese nt. SOURC E: ThinP rep Pap HPV IF ASCUS , Cervi olvin, Image d CLINI OLVIN INFOR MATIO N: HPV If Diagn osis of ASCUS . menop ause, lps neg Not Available [facility], Cytopathology Service [address] [place], [address], 11/13/2015 15:18:53 12/11/19 16 12/11/2015 vitam in D, 25-hy droxy , total , serum comments [facility] [address] [place] [address] [phone] Not Available [facility] [address] [place], [address], 12/12/2015 04:21:54 12/11/19 16 12/11/2015 vitam in D, 25-hy droxy , total , serum vitamin D, 25-hydroxy 30 NG/mL 30-80 Vitam in D Refer ence Range s Defic iency : <20 ng/mL Insuf ficie ncy: 20-29 ng/mL Optim al: 30-80 ng/mL High: >80 ng/mL Not Available [facility] [address] [place], [address], 12/12/2015 04:21:54 11/12/19 17 11/11/2016 pap, LB [id number] ThinP rep Pap, Image d: NEGAT THONY FOR SQUAM OUS INTRA EPITH ELIAL LESIO N AND MALIG JOANN . Felisha Dyson, CT( CP) (Case elect lisa mark negra d 11 12 2016) ADEQU ACY: Satis facto ry. Endoc ervic al/tr ansfo rmati on zone compo nent prese nt. SOURC E: ThinP rep Pap HPV IF ASCUS , Cervi olvin, Image d: CLINI OLVIN INFOR MATIO N: HPV If Diagn osis of ASCUS . LPS neg. z12.4 Not Available [facility], Cytopathology Service [address] [place], [address], 11/12/2016 13:45:59 11/16/19 19 11/15/2018 pap, LB [id number] ThinP rep Pap, Image d: NEGAT THONY FOR SQUAM OUS INTRA EPITH ELIAL LESIO N AND MALIG JOANN . Atrop hy. Shirley Sanchez , CT( CP) (Case elect lisa mark negra d 11 17 2018) ADEQU ACY: Satis facto ry Endoc ervic al/tr ansfo rmati on zone compo nent prese nt. SOURC E: ThinP rep Pap HPV IF ASCUS , Cervi olvin, Image d CLINI OLVIN INFOR MATIO N: HPV If Diagn osis of ASCUS . Z12.4 , MENOP AUSE, LPS = NEG Not Available [facility], Cytopathology Service [address] [place], [address], 11/17/2018 14:20:42 11/22/19 21 11/21/2020 PAP1C ASE [id number] ThinP rep Pap, Image d: NEGAT THONY FOR SQUAM OUS INTRA EPITH ELIAL LESIO N AND MALIG JOANN . Millie Javier a , CT( CP) (Case elect lisa mark negra d 11 25 2020) ADEQU ACY: Satis facto ry Endoc ervic al/tr ansfo rmati on zone compo nent absen t. SOURC E: ThinP rep Pap HPV IF ASCUS , Cervi olvin, Image d CLINI OLVIN INFOR MATIO N: HPV If Diagn osis of ASCUS . 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 Satis facto ry for evalu ation . Endoc ervic al/tr ansfo rmati on zone prese nt. Clini olvin Histo ry: Date of Last Menst rual Perio d: not avail able Menst rual Histo ry: Post- menop ausal Contr acept thony Histo ry: not avail able Ancil francisco javier Testi ng: HPV (ASCU S) Case image d by the ThinP rep Imagi ng Syste m with merly pearce or vaughn roberts. Perfo rmed at [facility] ate Refer ence [facility], [address] [place] Clini olvin Histo ry (othe r): Z12.4 , LPS 11/21 NEG, ROUTI NE SCREE N Phone #: [phone], On-Ca ll Patho logis t: [id number] Not Available [facility] (Centralized Electronic Ordering - All Locations) Patient Can Go To The Location Of Their Choice, [address] 12/14/2022 11:16:37 11/20/19 16 11/19/2015 bone densi ty No observ ation record ed. [email or web address] Not Available 2015 11:40:45 08/19/19 17 08/18/2016 MAMMO , scree brina, digit al, bilat eral No observ ation record ed. Not Available 08/01 16:22:36 09/02/19 18 08/31/2017 MAMMO , scree brina, digit al, bilat eral No observ ation record ed. [facility] ([facility]) [address] [place], [address], 09/02/2017 09:29:55 09/08/19 19 09/07/2018 MAMMO , scree brina, digit al, bilat eral No observ ation record ed. [email or web address] Not Available 2018 09:09:02 09/09/19 19 09/07/2018 MAMMO , scree brina, digit al, bilat eral No observ ation record ed. [facility] ([facility]) [address] [place], [address], 09/08/2018 08:48:23 11/29/19 20 11/28/2019 MAMMO , scree brina, digit al, bilat eral No observ ation record ed. Not Available 11/02 08:12:57 12/03/19 21 12/02/2020 MAMMO , scree brina, digit al, bilat eral No observ ation record ed. Not Available 07/2020 08:13:17 12/04/19 21 12/02/2020 MAMMO , scree brina, digit al, bilat eral No observ ation record ed. [facility] [address] , [place], [address], 12/03/2020 14:32:15 12/11/19 22 12/10/2021 MAMMO , scree brina, digit al, bilat eral No observ ation record ed. [address] ([facility]) [address] [place], [address], 12/10/2021 12:13:04 12/18/19 23 12/17/2022 MAMMO , scree brina, digit al, bilat eral No observ ation record ed. [email or web address] [facility] ([facility]) [address] [place], [address], 12/28/2022 10:55:21 12/29/19 23 12/17/2022 MAMMO , scree brina, digit al, bilat eral No observ ation record ed. [address] ([facility]) [address] [place], [address], 12/28/2022 09:39:32 Result Notes None recorded. Problems Name Problem SNOMED Code Status Onset Date Resolution Date Notes Provider Name and Address Organization Details Recorded Time Vitamin D deficiency 01704921 Active 2009 Radha Skinner MD [address] [facility],[address], [place], [address] , [place] - [facility], 6 10:13:44 Benign essential hypertension 7154576 Active Not Available [facility] 3 03:01:07 Problem Notes None recorded. Procedures Surgical History Date Name Laterality Status Provider Name and Address Organization Details Recorded Time 12/11/19 22 Most Recent Mammogram completed Jayne Black [place] - [facility], 12/10/2022 08:15:20 06/03/19 13 Rep dev, urinary, w/sling completed Radha Skinner MD [address], [place], [address], [place] - [facility], 11/08/2013 08:25:57 05/03/18 72 Tonsillectomy completed Stacey Damico in [facility], 11/07/2012 14:14:42 05/03/18 52 Oophorectomy completed Stacey Damico in [facility], 11/07/2012 14:14:42 Imaging Results Imaging Date Name Status LastModified by Organiz ation Details LastModified Time 11/19/2015 bone density completed fermin Information not available 11/20/2015 11:40:45 08/18/2016 MAMMO, screening, digital, bilateral completed Information not available 08/18/2016 16:22:36 08/31/2017 MAMMO, screening, digital, bilateral completed [facility] ([facility]) [address] [place], [address], 09/02/2017 09:29:55 09/07/2018 MAMMO, screening, digital, bilateral completed [email or web address] Information not available 09/08/2018 09:09:02 09/07/2018 MAMMO, screening, digital, bilateral completed [facility] ([facility]) [address] [place], [address], 09/08/2018 08:48:23 11/28/2019 MAMMO, screening, digital, bilateral completed Information not available 11/30/2019 08:12:57 12/02/2020 MAMMO, screening, digital, bilateral completed Information not available 12/03/2020 08:13:17 12/02/2020 MAMMO, screening, digital, bilateral completed [facility] [address] [place], [address], 12/03/2020 14:32:15 12/10/2021 MAMMO, screening, digital, bilateral completed [facility] ([facility]) [address] [place], [address], 12/10/2021 12:13:04 12/17/2022 MAMMO, screening, digital, bilateral completed [email or web address] [facility] ([facility]) [address] [place], [address], 12/28/2022 10:55:21 12/17/2022 MAMMO, screening, digital, bilateral completed [email or web address] [facility] ([facility]) [address] [place], [address], 12/28/2022 09:39:32 Procedure Notes None recorded. Medical Equipment None Reported. Allergies Allergen ID Allergen Name Allergen Category Reaction Reaction Severity Criticality Documentation Date Start Date Code Code System Note Provider Name and Address Organization Details Recorded Time 7365 Zithromax medicatio n nausea Not available Not available 11/07/2012 4 RxNorm hira rgic Stacey reyna [place] - [facility], 3 14:14:43 Medications Name Sig Start Date Stop Date Status Note LastModified by Organization Details LastModified Time moexipril 15 mg-hydrochl orothiazide 25 mg tablet TAKE 1 TABLET BY MOUTH EVERY DAY 11/15 completed Not Available Not Available Not Available Klor-Con 10 mEq tablet,exte nded release active Not Available Not Available Not Available atorvastati n 10 mg tablet TAKE 1 TABLET BY MOUTH EVERY DAY 11/21 completed Not Available Not Available Not Available atovaquone 250 mg-proguani l 100 mg tablet active Not Available Not Available Not Available prednisone 20 mg tablet TAKE 2 TABLETS BY MOUTH DAILY FOR 2-3 DAYS FOR BURSITIS 12/10 completed Not Available Not Available Not Available ciprofloxac in 500 mg tablet active Not Available Not Available Not Available oxycodone-a cetaminophe n 5 mg-325 mg tablet active Not Available Not Available No t Available meclizine 25 mg tablet 1 TABLET BY MOUTH EVERY 8 HOURS,X10 DAYS IF NEEDED FOR RELIEF OF DIZZINESS 12/10 completed Not Available Not Available Not Available amlodipine 10 mg tablet TAKE 1 TABLET BY MOUTH EVERY DAY active Not Available Not Available No t Available moexipril 15 mg tablet TAKE 1 TABLET BY MOUTH EVERY DAY FOR 90 DAYS DIRECTED active Not Available Not Available No t Available Vivotif Jeanne Vaccine 2 billion unit capsule,del ayed release active Not Available Not Available Not Available moexipril 7.5 mg-hydrochl orothiazide 12.5 mg tablet 11/15 completed Not Available Not Available Not Available pravastatin 20 mg tablet TAKE 1 TABLET BY MOUTH EVERY DAY active Not Available Not Available No t Available hydrochloro thiazide 25 mg tablet TAKE 1 TABLET BY MOUTH EVERY DAY active Not Available Not Available No t Available ibuprofen 600 mg tablet active Not Available Not Available Not Available lovastatin 20 mg tablet TAKE 1 TABLET EVERY DAY 12/10 completed Not Available Not Available Not Available doxycycline hyclate 100 mg tablet active Not Available Not Available No t Available amoxicillin 500 mg-potassiu m clavulanate 125 mg tablet 11/15 completed Not Available Not Available Not Available cyclobenzap rine 5 mg tablet 11/11 completed Not Available Not Available Not Available Co Q-10 active Not Available Not Avail able Not Available Zostavax (PF) 19,400 unit/0.65 mL subcutaneou s suspension active Not Available Not Available N ot Available Afluria 2924-5298 (PF) 45 mcg(15 mcg x 3)/0.5 mL intramuscul ar syringe active Not Available Not Available N ot Available Shingrix (PF) 50 mcg/0.5 mL intramuscul ar suspension, kit active Not Available Not Available Not Available Flowflex COVID-19 Antigen Home Test kit USE DIRECTED active Not Available Not Available No t Available Paxlovid 300 mg (150 mg x 2)-100 mg tablets in a dose pack PLEASE SEE ATTACHED FOR DETAILED DIRECTION S 12/10 completed Not Available Not Available Not Available Vitals Date Recorded Body weight Body mass index (BMI) Body height Heart rate Systolic blood pressure Diastolic blood pressure Provider Name and Address Organization Details Last Updated DateTime 9 56236.4 2 g 27.9 kg/m2 166.37 cm 67 /min 137 mm[Hg] 57 mm[Hg] Stacey Burt [place] - [facility], 9 08:09:40 Date Recorded Body height Body mass index (BMI) Body weight Heart rate Systolic blood pressure Diastolic blood pressure Provider Name and Address Organization Details Last Updated DateTime 1 166.37 cm 29.2 kg/m2 70217.4 4 g 70 /min 132 mm[Hg] 60 mm[Hg] Jayne Damico in [facility], 1 08:50:12 Date Recorded Body weight Body mass index (BMI) Body height Provider Name and Address Organization Details Last Updated DateTime 12/10/2022 35342.66 g 28.7 kg/m2 166.37 cm Jayne Damico in [facility], 12/10/2022 08:04:13 Date Recorded Body height Body weight Body mass index (BMI) Heart rate Systolic blood pressure Diastolic blood pressure Provider Name and Address Organization Details Last Updated DateTime 6 166.37 cm 56238.1 3 g 29 kg/m2 70 /min 136 mm[Hg] 69 mm[Hg] Stacey Damico in [facility], 6 09:13:43 Date Recorded Body height Body mass index (BMI) Body weight Heart rate Systolic blood pressure Diastolic blood pressure Provider Name and Address Organization Details Last Updated DateTime 7 166.37 cm 28.2 kg/m2 56122.1 7 g 66 /min 141 mm[Hg] 68 mm[Hg] Stacey Damico in [facility], 7 08:15:47 Social History Question Answer Notes LastModified by Organizat ion Details LastModified Time Tobacco Smoking Status Former Smoker Not Available [facility] 03/05/2020 03:19:39 Do You Have An Advance Directive? No Information not available 11/21/2020 What Is Your Level Of Alcohol Consumption? Occasional [id number] Information not available 03/05/2020 Are You Blind Or Do You Have Difficulty Seeing? No [id number] Information not available 03/05/2020 Is Blood Transfusion Acceptable In An Emergency? No Information not available 11/21/2020 What Is Your Level Of Caffeine Consumption? Moderate Information not available 12/10/2022 In The 14 Days Before Symptom Onset, Have You Had Close [facility] While That Case Was Ill? No Information not available 11/21/2020 In The 14 Days Before Symptom Onset, Have You Had Close Contact With A Person Who Is Under Investigation For COVID-19 While That Person Was Ill? No Information not available 11/21/2020 Have You Been To An Area Known To Be High Risk For COVID-19? No Information not available 11/21/2020 Are You Currently Employed? No Information not available 12/10/2022 Are You Deaf Or Do You Have Serious Difficulty Hearing? No [id number] Information not available 03/05/2020 What Type Of Diet Are You Following? REGULAR [id number] Information not available 03/05/2020 Which Illicit Or Recreational Drugs Have You Used? No [id number] Information not available 03/05/2020 Do You Reside In Or Have You Traveled To An Area Where Ebola Virus Transmission Is Active? No [id number] Information not available 03/05/2020 Education Post Graduate Information not available 11/07/2012 What Is The Highest Grade Or Level Of School You Have Completed Or The Highest Degree You Have Received? 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 10 Information no t available 11/11/2016 Are There Any Guns Present In Your Home? No Information not available 11/21/2020 Have You Recently Or Are You Planning To Travel To An Area With Zika Virus? No Information not available 11/21/2020 High Number Of Sexual Partners No Information not available 11/12/2015 To Which Gender Do You Self-identify? Female Information not available 11/12/2015 Marital Status Informatio n not available 11/07/2012 What Was The Date Of Your Most Recent Tobacco Screening? 12/10/2022 Information not available 12/10/2022 What Is Your Relationship Status? Information not available 11/21/2020 Are You Sexually Active? Yes [id number] Information not available 03/05/2020 Do You Have Smoke And Carbon Monoxide Detectors In Your Home? Yes Information not available 11/21/2020 How Much Tobacco Do You Smoke? No [id number] Information not available 03/05/2020 General Stress Level Low Information not available 11/15/2018 Do You Use Any Illicit Or Recreational Drugs? No Information not available 11/21/2020 Do You Use Sunscreen Routinely? Yes Information not available 11/21/2020 How Many Years Have You Smoked Tobacco? 1 [id number] Information not available 03/05/2020 Have You Recently (within The Last 12 Weeks, Or During A Current ) Traveled To Or Lived In A Zika-affected Area? No Information not available 11/12/2015 Do You Or Have You Ever Used Any Other Forms Of Tobacco Or Nicotine? No Information not available 11/21/2020 Sex: Female Functional Status Question Answer Note LastModified by Organization D etails LastModified Time Do you have difficulty walking or climbing stairs? No [id number] Information not available 03/05/2020 Do you have difficulty doing errands alone? No [id number] Information not available 03/05/2020 Do you have difficulty dressing or bathing? No [id number] Information not available 03/05/2020 What is your exercise level? Heavy [id number] Information not available 03/05/2020 Mental Status Question Answer Note LastModified by Organization D etails LastModified Time Do you have difficulty concentrating, remembering or making decisions? No [id number] Information no t available 03/05/2020 Family History Relationship Description Onset Age of this Age Resolved Age Notes LastModified by Organization Details LastModified Time Maternal Grandmother Malignant neoplastic disease 85 previo usly record ed as Cancer Not available 11/09/2014 08:19:01 Father Diabetes mellitus previo usly record ed as Diabet es Not available 11/09/2014 08:19:01 Brother Myocardial infarction previo usly record ed as Heart Attack (NE) x2 Not available 11/09/2014 08:19:01 Maternal Grandfather Malignant neoplastic disease previo usly record ed as Cancer Not available 11/09/2014 08:19:01 Medical History Condition Response Anesthesia complications N High Blood Pressure Y Candidate for MyRisk panel N Autoimmune Condition N Depression N Lung Disease N Defects or Inherited Disease N History of Ovarian Cancer N BRCA testing in past N Anxiety Disorder N Arthritis Y Infertility N History of Cancer N Endometriosis N Kidney or Bladder Problems Y Thyroid Problems N GI Problems N Anemia N History of Breast Cancer N REMEDIOS exposure N Osteopenia N Psychiatric Illness N Diabetes N Headaches or Migraines N Asthma N Hepatitis N Heart Disease N Hypertension Y Osteoporosis N Gynecological History Statement/Question Response If Post Menopausal, Age at Menopause 60 Age at Menarche 13 Most Recent Mammogram 12/10/2021 Age at First Child 36 Obstetrics History GPAL:G 2 P 0 0 0 2 Type Value Living 2 Total 2 Immunizations Vaccine Type Date Status Note Provider Nam e and Address Organization Details Recorded Time polio, unspecified formulation 3 completed Stacey Mecshaniwor maribell [place] [facility], 11/09/2014 08:11:37 Hep A, adult 4 completed Stacey Meczywor null, [place] [facility], 11/09/2014 08:11:37 typhoid, oral 3 completed Stacey Meczywor maribell [place] [facility], 11/09/2014 08:11:37 Tdap 3 completed Stacey Meczywor null, [place] - [facility], 11/09/2014 08:11:37 Influenza, split virus, quadrivalent, preservative 5 completed Stacey Meczywor null, [place] - [facility], 11/12/2015 08:17:10 pneumococcal, unspecified formulation 5 completed Stacey Meczywor null [place] - [facility], 11/12/2015 08:17:55 zoster live 5 completed Stacey Meczywor null [place] - [facility], 11/12/2015 08:18:21 zoster live 9 completed Stacey Mecnamita reyna [place] - [facility], 11/15/2018 08:12:22 Influenza, split virus, quadrivalent, preservative 8 completed Stacey Meczywor null, [place] [facility], 11/15/2018 08:12:47 zoster recombinant 9 completed Stacey Meczywor [place], [place] [facility], 12/10/2022 08:03:56 zoster recombinant 9 completed Stacey Meczywor null, [place] [facility], 12/10/2022 08:03:56 Influenza, high-dose, quadrivalent, PF 2 completed Stacey Meczywor null, [place] - [facility], 12/10/2022 08:03:56 COVID-19, mRNA, LNP-S, PF, 100 mcg/0.5mL dose or 50 mcg/0.25mL dose 1 completed Stacey Meczywor null, [place] [facility], 12/10/2022 08:03:57 COVID-19, mRNA, LNP-S, PF, 100 mcg/0.5mL dose or 50 mcg/0.25mL dose 1 completed Stacey Meczywor null, [place] - [facility], 12/10/2022 08:03:57 COVID-19, mRNA, LNP-S, PF, 100 mcg/0.5mL dose or 50 mcg/0.25mL dose 2 completed Stacey Meczywor null, [place] - [facility], 12/10/2022 08:03:57 COVID-19, mRNA, LNP-S, PF, 100 mcg/0.5mL dose or 50 mcg/0.25mL dose 1 completed Stacey Meczywor null, [place] - [facility], 12/10/2022 08:03:57 Pneumococcal conjugate PCV20, polysaccharide [id number] conjugate, adjuvant, PF 3 completed Stacey Meczywor null, [place] - [facility], 12/10/2022 08:03:57 COVID-19, mRNA, LNP-S, bivalent, PF, 50 mcg/0.5 mL or 25mcg/0.25 mL dose 2 completed Stacey Meczywor null, [place] - [facility], 12/10/2022 08:03:57 influenza, unspecified formulation 2 completed Stacey Meczywor null, [place] - [facility], 12/10/2022 08:03:57 Tdap 3 completed Stacey Meczywor null, [place] [facility], 12/10/2022 08:03:57 Influenza, split virus, trivalent, preservative 1 completed Stacey Meczywor null, [place] [facility], 12/10/2022 08:03:57 Influenza, split virus, trivalent, PF 7 completed Stacey Meczywor null, [place] - [facility], 12/10/2022 08:03:57 Past Encounters Encounter ID Performer Location Encounter Start Date Encounter Closed Date Diagnosis/Indication Diagnosis SNOMED-CT Code Diagnosis ICD10 Code Diagnosis Note [id number] Jennifer Hooker RADHA SKINNER MD [address] [place] [address], [address] [place] [address] 11/07/2012 13:42:33 11/07/2012 16:26:55 [id number] Stacey SKINNER MD [address] [place] [address], [address] [place] [address] 11/08/2013 08:01:42 11/08/2013 10:52:29 Specialized medical examination [id number] Screening for malignant neoplasm of rectum 210044177 Screening mammography [id number] RADHA SKINNER MD [address] [facility] [address] [place] [address] 11/09/2014 07:56:07 11/09/2014 12:57:19 Specialized medical examination [id number] Screening for malignant neoplasm of rectum 339411528 Screening mammography [id number] MD RADHA Sorensen MD [address] [facility], [address] [place] [address] 11/12/2015 08:08:55 11/12/2015 11:13:43 Specialized medical examination 15071591 Z01.419 Screening for malignant neoplasm of rectum 975850212 Z12.12 Screening mammography 24 631761 Z12.31 Menopausal syndrome 1237 07140 N95.9 [id number] MD RADHA Sorensen MD [address] [place] [address] [place] [address] 12/11/2015 09:02:33 12/11/2015 10:53:48 Osteopenia 809585630 M85.852 Vitamin D deficiency 347 38486 E55.9 [id number] MD RADHA Sorensen MD [address] [place], [place] [address] [address] 11/11/2016 07:58:55 11/11/2016 09:52:37 Screening for malignant neoplasm of cervix 422208674 Z12.4 Screening mammography 24 639225 Z12.31 Cares for self 498554257 Z76.89 [id number] MD RADHA Sorensen MD [address] [place] [address] [place] [address] 11/15/2018 07:55:22 11/15/2018 11:17:51 Screening for malignant neoplasm of cervix 935956556 Z12.4 Screening mammography 24 633975 Z12.31 Screening for osteoporosis 880077606 Z13.820 [id number] MD RADHA Sorensen MD [address] [place] [address] [place] [address] 11/21/2020 08:18:49 11/21/2020 10:40:27 Screening for malignant neoplasm of cervix 028505963 Z12.4 Screening mammography 24 762407 Z12.31 Screening for osteoporosis 701441934 N95.8 [id number] MD RADHA Sorensen MD [address] [place], [place] [address] [address] 12/10/2022 08:01:35 12/10/2022 09:31:36 Screening for malignant neoplasm of cervix 892851733 Z12.4 Screening mammography 24 946458 Z12.31 Screening for osteoporosis 697710048 N95.8 Health Concerns Section Related Observation LastModified by Organization Detai ls LastModified Time None Recorded Concern Status LastModified by Organization Details LastModified Time None Recorded Advance Directives Directive N: Payers Encounter Date Sequence Insurance Name Policy Number Policy Guajardo Covered Member ID Guajardo Member ID Guarantor Name 12/11/2015 1 [employer] - GIC (INDEMNITY) [id number] Jessica Schwamb [id number] Jessica Schwamb 11/11/2016 2 [employer] - SENIOR SERVICES PLAN F (MEDICARE SUPPLEMENT) [id number] Jessica Schwamb [id number] Jessica Schwamb 11/11/2016 1 [place] Jessica W Schwamb [id number] Jessica Schwamb 11/15/2018 2 [employer] - SENIOR SERVICES PLAN F (MEDICARE SUPPLEMENT) [id number] Jessica Schwamb [id number] Jessica Schwamb 11/15/2018 1 [place] Jessica W Schwamb [id number] Jessica Schwamb 11/21/2020 2 [employer] - SENIOR SERVICES PLAN F (MEDICARE SUPPLEMENT) [id number] Jessica Schwamb [id number] Jessica Schwamb 11/21/2020 1 [place] Jessica W Schwamb [id number] Jessica Schwamb 12/10/2022 2 [employer] - SENIOR SERVICES PLAN F (MEDICARE SUPPLEMENT) [id number] Jessica Schwamb [id number] Jessica Schwamb 12/10/2022 1 [place] Jessica W Schwamb [id number] Jessica Schwamb Notes Date Note Type Note Provider Name and Address Organization Details Recorded Time 12/11/2015 text/html She is here for discussion of her recent bone density which showed osteopenia with a T score of -1.2 in the left hip. Radha Skinner MD [address] [place] [address],[address], [place], [address], [place] [facility], 12/11/2015 10:14:12 11/11/2016 text/html She is here for annual exam, is doing well. Bone density of -1.2 last year. Radha Skinner MD [address], [place], [address], [place] [facility], 11/11/2016 09:55:19 11/15/2018 text/html She is here for annual exam, is doing well. Her Azam is her health care proxy. Radha Skinner MD [address], [place], [address], [place] [facility], 11/15/2018 11:02:34 11/21/2020 text/html She is here for annual exam, is doing well. Her Azam is her health care proxy. Radha Skinner MD [address], [place], [address], [place] [facility], 11/21/2020 08:59:56 12/10/2022 text/html She is here for annual exam, is doing well. Her Azam is her health care proxy. Radha Skinner MD [address], [place], [address], [place] [facility], 12/10/2022 09:07:05 OBGyn Episode No OBEpisode recorded.
--- OUTSIDE RECORDS SUMMARY | 2024-07-18 08:30 | XMS_ITS | Encounter Summary ---
Author Organization [facility] Address [address] [place] [address] Care Team Providers Care Business Continuity Management Director Name Role Phone Shirley Borjas MD Primary Care Provider Donald ward Encounter Details Date Type Department Care Team Description 12/18/2022 Business Doc Medical Records [address] [place] [address] Abstract, Provider Social History Tobacco Use Types [...] suspected to have Coronavirus/COVID-19? No / Unsure 12/17/2022 7:28 AM EDT documented as of this encounter Plan of Treatment Not on file documented as of this encounter Visit Diagnoses Not on filedocumented in this encounter Care Teams Business Continuity Management Director Relationship Specialty Start Date End Date Shirley Borjas MD PCP - General Internal Medicine 12/22/21 documented as of this encounter
[2024-07-18 08:47] VITALS: BP 136/56; PULSE 52; RESP 14; O2SAT 99; BMI 30.3
== END 2024-07-18 09:18 | disposition home or self-care (01) ==
LOC: HO.HMCFM 08:20
PROVIDERS: PCP Internal Medicine; Visit Provider Internal Medicine
DX: Z00.00 Encounter for general adult medical examination without abnormal findings (principal); M25.561 Pain in right knee; M25.562 Pain in left knee

== ENCOUNTER → 2024-07-18 08:19 | Outpatient (BNVA) | payer MEDICARE, OTHER, SELFPAY | PROVIDERS: PCP Internal Medicine; Visit Provider Internal Medicine | DX: Z00.01 Encounter for general adult medical examination with abnormal findings (principal); M25.561 Pain in right knee; M25.562 Pain in left knee; M25.512 Pain in left shoulder; I10 Essential (primary) hypertension; E78.5 Hyperlipidemia, unspecified; R73.03 Prediabetes; G47.33 Obstructive sleep apnea (adult) (pediatric); M19.90 Unspecified osteoarthritis, unspecified site; R42 Dizziness and giddiness; Z79.899 Other long term (current) drug therapy; Z99.89 Dependence on other enabling machines and devices | CPT/HCPCS: 99212 ==

== ENCOUNTER 2024-07-18 09:42 | Outpatient (REF) | payer MEDICARE, OTHER, SELFPAY ==
[2024-07-18 11:20] LABS: MANUAL DIFF FLAG NO
[2024-07-18 11:32] LABS: Basophils Percent Auto 0.4 % (0-2); Eosinophils Absolute Auto 0.1 X10*3/uL (0.0-0.4); Eosinophils Percent Auto 0.8 % (0-4); Hematocrit 40.7 % (37.0-47.0); Imm Gran Abs Auto 0.03 X10*3/uL (0.00-0.03); Imm Gran Pct Auto 0.4 % (0.0-0.4); Lymphocytes Absolute Auto 1.1 X10*3/uL (1.2-4.9); Lymphocytes Percent Auto 13.2 % (20-40); Mean Corpuscular HGB Conc 34.4 g/dl (31.0-35.0); Mean Corpuscular Hemoglobin 30.4 pg (27.0-33.0); Mean Corpuscular Volume 88.3 fL (80.0-98.0); Mean Platelet Volume 10.8 fL (9.4-12.3); Monocytes Absolute Auto 0.6 X10*3/uL (0.1-1.2); Monocytes Percent Auto 7.9 % (2-11); Neutrophils Absolute Auto 6.2 x10*3/uL (2.0-8.3); Neutrophils Percent Auto 77.3 % (45-73); Platelet Count 255 X10*3/uL (160-400); Red Blood Count 4.61 X10*6/uL (4.20-5.50); Red Cell Distribution Width 14.6 % (11.0-16.0)
[2024-07-18 11:38] LABS: Estimated Average Glucose 111 mg/dL; Hemoglobin A1c % 5.5 % (<6.0); Total Hemoglobin (HGBA1C) 3695.6174 umol/L
[2024-07-18 11:50] LABS: Alanine Aminotransferase 19 U/L (0-31); Albumin Level 4.3 g/dL (3.5-5.0); Alkaline Phosphatase 85 U/L (39-117); Anion Gap 12 (12-20); Aspartate Amino Transferase 32 U/L (5-31); Bilirubin Total 0.6 mg/dL (0.0-1.0); Blood Urea Nitrogen 17 mg/dL (9-16); Calcium 9.7 mg/dL (8.4-10.2); Carbon Dioxide 29 mmol/L (22-29); Chloride 104 mmol/L (96-108); Cholesterol 210 mg/dL (<200); Estimated Glomerular Filt Rate > 60; Glucose Random 97 mg/dL (60-115); HDL Cholesterol 97 mg/dL (>40); LDL Cholesterol Calculated 101 mg/dL (<100); Potassium 3.3 mmol/L (3.3-5.1); Sodium 142 mmol/L (135-145); Total Protein 7.7 g/dL (6.5-8.0); Triglycerides 60 mg/dL (<150)
[2024-07-18 12:14] LABS: Erythrocyte Sedimentation Rate 12 MM/HR (0-20)
[2024-07-19 09:04] LABS: Lyme Abs Screen <0.90 index
== END 2024-07-18 09:43 | disposition home or self-care (01) ==
LOC: HO.WFDLDS 09:42
PROVIDERS: Visit Provider Internal Medicine
DX: Z00.01 Encounter for general adult medical examination with abnormal findings (principal); M25.561 Pain in right knee; M25.562 Pain in left knee; M25.512 Pain in left shoulder; I10 Essential (primary) hypertension; E78.5 Hyperlipidemia, unspecified; R73.03 Prediabetes; G47.33 Obstructive sleep apnea (adult) (pediatric); M19.90 Unspecified osteoarthritis, unspecified site; R42 Dizziness and giddiness; Z79.899 Other long term (current) drug therapy; Z99.89 Dependence on other enabling machines and devices
CPT/HCPCS: 36415; 80053; 80061; 83036; 85025; 85652; 86617; 86618; 99212

== ENCOUNTER 2024-07-25 09:04 | Outpatient (REF) | payer MEDICARE, OTHER, SELFPAY ==
[2024-07-25 12:04] LABS: Influenza A PCR NEGATIVE (Negative); Influenza B PCR NEGATIVE (Negative); Resp Syncy Virus RNA Qual PCR NEGATIVE (Negative); SARS COV2 PCR INHOUSE NEGATIVE (Negative)
== END 2024-07-25 09:05 | disposition home or self-care (01) ==
LOC: HO.LAB 09:04
PROVIDERS: PCP Internal Medicine; Visit Provider Nurse Practitioner Family
DX: J06.9 Acute upper respiratory infection, unspecified (principal); H10.9 Unspecified conjunctivitis
CPT/HCPCS: 0241U; 99212

== ENCOUNTER 2024-07-25 09:04 | Outpatient (AMB) | payer MEDICARE, OTHER, SELFPAY ==
--- NOTE | 2024-07-25 09:22 | AM.OFFWIN_ITS ---
Intake Vital Signs 07/25/24 09:27 07/25/24 09:43 Height 5 ft 5 in Weight 181 lb BMI 30.1 BP 141/65 H 136/60 Blood Pressure Location Rt brachial Lt brachial Position Sitting Sitting Respiration 16 Pulse 71 Pulse Source Pulse Oximeter Temp 98.1 F Temp Source Oral Pulse Oximetry (%) 99 Oxygen Delivery Method Room Air Intake Visit Reasons: running/swollen eyes Intake Note: patient here c/o swollen eyes and draining. Patient Tobacco Use Status: Former Tobacco user Mailing Machine Helper Required: No Is last menstrual period known: No Post menopausal: No Patient : No Allergies zpack Allergy (Severe, Uncoded 07/25/24 09:40) Diarrhea Medication List - Last Reconciled 07/25/24 by Sabra Munoz CNP amlodipine 10 mg PO DAILY calcium carbonate 1,200 mg PO DAILY cholecalciferol (vitamin D3) 25 mcg PO DAILY coQ10 (ubiquinol) (Qunol Jarrod CoQ10) 300 mg PO DAILY hydrochlorothiazide 25 mg PO QAM moexipril 15 mg PO DAILY pravastatin 20 mg PO DAILY [wellness tablets .] Do you need a note to return to daycare/school/sports/work: No HPI HPI Comments History of Present Illness Details 74-year-old female presents with complai nts of cold symptoms. She has nasal congestion for the past 1 week. Her symptoms have progressively worsened. She woke up this morning with watery eyes and had to forcefully open both eyes because the eyelids were sticky. She used Neti pot yesterday with greenish drainage from her right nasal cavity. She has not been taking any medications for her symptoms. She reports sick contacts awith her current children. 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 Current occupational exposures/hazards: No Cognitive needs: No Hearing needs: No Vision needs: Yes (wears glasses) Review of Systems Const Details: Denies chills, Denies fatigue, Denies fever(s), Denies headache(s) and Denies weakness Cardiac Denies chest pain, Denies claudication, Denies leg edema, Denies lightheadedness, Denies palpitations, Denies dyspnea, Denies dyspnea on exertion, Denies orthopnea and Denies other (Loss of consciousness) Resp Denies cough, Denies excessive phlegm production, Denies dyspnea, Denies dyspnea on exertion, Denies snoring and Denies wheezing HEENT Reports as per HPI Physical Exam Const Other: General: comfortable and no acute distress Orientation/consciousness: patient oriented x3 Chest Chest palpation & inspection: normal inspection of the chest Resp Auscultation: clear to auscultation bilaterally Cardiac Palpation: normal PMI Heart sounds: S1 normal heart sound present, S2 normal heart sound present, no gallops, no murmur, no rubs HEENT Head is normocephalic Conjunctiva of both eyes with moderate erythema, yellow discharge to epicanthal folds Bilateral ear canal and TM are normal Nasal turbinates are pink and dry Oropharynx is pink and moist Sinuses are nontender with palpation No auricular or cervical lymphadenopathy Assessment & Plan Assessment & Plan (1) Viral upper respiratory illness: Code(s): J06.9 - Acute upper respiratory infection, unspecified Plan: Likely viral illness though possibly allergies Superimposed bacterial conjunctivitis of both eyes is likely Viral illness There is no antibiotic medication for viruses.? They must run their course.? Most average 5-7 days but 7-10 days is not uncommon and up to 14 days is still possible.? A cough is often the last symptom to resolve and this can last for weeks in some cases. Rest Hydrate well -? Drink plenty of fluids.? Especially water. Tylenol or ibuprofen for muscle aches, headache, fever/discomfort Nasal saline rinse as needed Zyrtec as prescribed. Cannot rule out COVID-19/RSV/Flu infection Nasal swab acquired and will be sent to the lab Return for new or worsening symptoms Verbalized understanding and agreed with treatment plan. (2) Conjunctivitis of both eyes: Code(s): H10.9 - Unspecified conjunctivitis Plan: Conjunctiva of both eyes with moderate erythema, yellow discharge to epicanthal folds Erythromycin ointment as prescribed. Warm compresses encouraged. May take Tylenol ibuprofen for pain, discomfort, or fever. Good handwashing encouraged to limit spread. Follow-up with worsening or new symptoms. Verbalized understanding and agreed with treatment plan. Orders: Orders SARS-CoV2/FLU/RSV Today J06.9 - Acute upper respiratory infection, unspecified Medications: New erythromycin T.i.d. to both eyes x 7 days 0.5 inches ophthalmic (eye) TID 7 days 3.5 grams 0RF cetirizine 10 mg PO DAILY 30 days 30 tabs 0RF Coding Level of Care Code Est Pt Level 3 (85552) Diagnoses Viral upper respiratory illness J06.9 Conjunctivitis of both eyes H10.9
[2024-07-25 09:27] VITALS: BP 141/65; PULSE 71; RESP 16; TEMP 36.7; O2SAT 99; BMI 30.1
[2024-07-25 09:43] VITALS: BP 136/60
--- OUTSIDE RECORDS SUMMARY | 2024-07-25 09:57 | XMS_ITS | Encounter Summary ---
Author Organization [facility] Address [address] [place] [address] Care Team Providers Care Endo Tech Name Role Phone Aroldo Rojo Primary Care Provider Shirley Gilliland MD Primary Care Provider Donald ward Encounter Details Date Type Department Care Team Description 12/24/2014 [facility] Medical Records [address] [place] [address] Abstract, Provider Social History Tobacco Use Types [...] on filedocumented in this encounter Care Teams Endo Tech Relationship Specialty Start Date End Date Aroldo Rojo PCP - General 07/15/08 12/21/21 Shirley Borjas MD PCP - General Internal Medicine 12/22/21 documented as of this encounter
--- OUTSIDE RECORDS SUMMARY | 2024-07-25 09:57 | XMS_ITS | Encounter Summary ---
Author Organization [facility] Address [address] [place] [address] Care Team Providers Care Pad Extractor Tender Name Role Phone Aroldo Rojo Primary Care Provider Shirley Gilliland MD Primary Care Provider Donald ward Encounter Details Date Type Department Care Team Description 09/02/2005 [facility] Medical Records [address] [place] [address] Abstract, Provider Social History Tobacco Use Types [...] on filedocumented in this encounter Care Teams Pad Extractor Tender Relationship Specialty Start Date End Date Arolod Rojo PCP - General 07/15/08 12/21/21 Shirley Borjas MD PCP - General Internal Medicine 12/22/21 documented as of this encounter
--- OUTSIDE RECORDS SUMMARY | 2024-07-25 09:57 | XMS_ITS | Encounter Summary ---
Author Organization [facility] Address [address] [place] [address] Care Team Providers Care Squash Centre Manager Name Role Phone Aroldo Rojo Primary Care Provider Shirley Gilliland MD Primary Care Provider Donald ward Encounter Details Date Type Department Care Team Description 09/02/2017 Business Doc Medical Records [address] [place] [address] Abstract, Provider Social History Tobacco Use Types [...] on filedocumented in this encounter Care Teams Squash Centre Manager Relationship Specialty Start Date End Date Aroldo Rojo PCP - General 07/15/08 12/21/21 Shirley Bojras MD PCP - General Internal Medicine 12/22/21 documented as of this encounter
--- OUTSIDE RECORDS SUMMARY | 2024-07-25 09:57 | XMS_ITS | Encounter Summary ---
Author Organization [facility] Address [address] [place] [address] Care Team Providers Care Drain Tile Press Operator Name Role Phone Aroldo Rojo Primary Care Provider Shirley Gilliland MD Primary Care Provider Donald ward Encounter Details Date Type Department Care Team Description 02/10/2011 [facility] Medical Records [address] [place] [address] Abstract, Provider Social History Tobacco Use Types [...] Name Priority Date/Time Associated Diagnosis Comments OUTSIDE HOLTER MONITOR Routine 02/10/2011 documented in this encounter Results * OUTSIDE HOLTER MONITOR (02/10/2011) Provider Default CARDIOLOGY documented in this encounter Visit Diagnoses Not on filedocumented in this encounter Care Teams Drain Tile Press Operator Relationship Specialty Start Date End Date Aroldo Rojo PCP - General 07/15/08 12/21/21 Shirley Borjas MD PCP - General Internal Medicine 12/22/21 documented as of this encounter
--- OUTSIDE RECORDS SUMMARY | 2024-07-25 09:57 | XMS_ITS | Encounter Summary ---
Author Organization [facility] Address [address] [place] [address] Care Team Providers Care Nail Welter Name Role Phone Aroldo Rojo Primary Care Provider Shirley Gilliland MD Primary Care Provider Donald ward Encounter Details Date Type Department Care Team Description 07/21/2010 [facility] Medical Records [address] [place] [address] Antonio Thompson MD Social History Tobacco Use Types Packs/Day [...] Date/Time Associated Diagnosis Comments OUTSIDE ECHO Routine 07/21/2010 documented in this encounter Results * OUTSIDE ECHO (07/21/2010) Provider Default CARDIOLOGY documented in this encounter Visit Diagnoses Not on filedocumented in this encounter Care Teams Nail Welter Relationship Specialty Start Date End Date Aroldo Rojo PCP - General 07/15/08 12/21/21 Shirley Borjas MD PCP - General Internal Medicine 12/22/21 documented as of this encounter
--- OUTSIDE RECORDS SUMMARY | 2024-07-25 09:57 | XMS_ITS | Encounter Summary ---
Author Organization [facility] Address [address] [place] [address] Care Team Providers Care Golf Club Repairer Name Role Phone Aroldo Rojo Primary Care Provider Shirley Gilliland MD Primary Care Provider Donald ward Encounter Details Date Type Department Care Team Description 05/31/2020 [facility] Medical Records [address] [place] [address] Social History Tobacco Use Types Packs/Day Years [...] on filedocumented in this encounter Care Teams Golf Club Repairer Relationship Specialty Start Date End Date Aroldo Rojo PCP - General 07/15/08 12/21/21 Shirley Borjas MD PCP - General Internal Medicine 12/22/21 documented as of this encounter
--- OUTSIDE RECORDS SUMMARY | 2024-07-25 09:57 | XMS_ITS | Clinical Summary ---
Author Organization [facility] Address [address] [place] [address] Care Team Providers Care Dry Chain Worker Name Role Phone Shirley Borjas MD Primary [...] 08/2018, 08/31/2018, Additional history exists Care Teams Dry Chain Worker Relationship Specialty Start Date End Date Shirley Borjas MD PCP - General Internal Medicine 12/22/21
--- OUTSIDE RECORDS SUMMARY | 2024-07-25 09:57 | XMS_ITS | Encounter Summary ---
Author Organization [facility] Address [address] [place] [address] Care Team Providers Care Sports Medicine Specialist Name Role Phone Aroldo Rojo Primary Care Provider Shirley Gilliland MD Primary Care Provider Donald ward Encounter Details Date Type Department Care Team Description 12/22/2011 Hydroelectric Plant Structural Engineer Report Medical Records [address] [place] [address] Antoine Quevedo Social History Tobacco Use Types [...] on filedocumented in this encounter Care Teams Sports Medicine Specialist Relationship Specialty Start Date End Date Aroldo Rojo PCP - General 07/15/08 12/21/21 Shirley Borjas MD PCP - General Internal Medicine 12/22/21 documented as of this encounter
--- OUTSIDE RECORDS SUMMARY | 2024-07-25 09:57 | XMS_ITS | Encounter Summary ---
Author Organization [facility] Address [address] [place] [address] Care Team Providers Care Heading Repairer Name Role Phone Aroldo Rojo Primary Care Provider Shirley Gilliland MD Primary Care Provider Donald ward Encounter Details Date Type Department Care Team Description 12/04/2019 Business Doc Medical Records [address] [place] [address] Abstract, Provider Social History Tobacco Use Types [...] on filedocumented in this encounter Care Teams Heading Repairer Relationship Specialty Start Date End Date Aroldo Rojo PCP - General 07/15/08 12/21/21 Shirley Borjas MD PCP - General Internal Medicine 12/22/21 documented as of this encounter
--- OUTSIDE RECORDS SUMMARY | 2024-07-25 09:58 | XMS_ITS | Encounter Summary ---
Author Organization [facility] Address [address] [place] [address] Care Team Providers Care Milking Machine Operator Name Role Phone Shirley Borjas MD Primary Care Provider Donald ward Encounter Details Date Type Department Care Team Description 05/11/2022 Chief Engineer'S Helper Report Medical Records [address] [place] [address] Deanna Burks PA-C Social History Tobacco Use Types Packs/Day Years [...] Date/Time Associated Diagnosis Comments OUTSIDE EKG Routine 05/11/2022 OUTSIDE LAB Routine 05/11/2022 documented in this encounter Results * OUTSIDE LAB (05/11/2022) Provider Default LAB * OUTSIDE EKG (05/11/2022) Provider Default CARDIOLOGY documented in this encounter Visit Diagnoses Not on filedocumented in this encounter Care Teams Milking Machine Operator Relationship Specialty Start Date End Date Shirley Borjas MD PCP - General Internal Medicine 12/22/21 documented as of this encounter
--- OUTSIDE RECORDS SUMMARY | 2024-07-25 09:58 | XMS_ITS | Encounter Summary ---
Author Organization [facility] Address [address] [place] [address] Care Team Providers Care Medical Accounts Receivable Specialist Name Role Phone Aroldo Rojo Primary Care Provider Shirley Gilliland MD Primary Care Provider Donald ward Encounter Details Date Type Department Care Team Description 05/16/2021 Lead Warehouse Associate Report Medical Records [address] [place] [id number] Monica Fleming Social History Tobacco Use Types Packs/Day Years [...] on filedocumented in this encounter Care Teams Medical Accounts Receivable Specialist Relationship Specialty Start Date End Date Aroldo Rojo PCP - General 07/15/08 12/21/21 Shirley Borjas MD PCP - General Internal Medicine 12/22/21 documented as of this encounter
--- OUTSIDE RECORDS SUMMARY | 2024-07-25 09:58 | XMS_ITS | Encounter Summary ---
Author Organization [facility] Address [address] [place] [address] Care Team Providers Care Central Supply Clerk Name Role Phone Aroldo Rojo Primary Care Provider Shirley Gilliland MD Primary Care Provider Donald ward Encounter Details Date Type Department Care Team Description 11/10/2006 SCAN Medical Records [address] [place] [id number] Abstract, Provider Social History Tobacco Use Types [...] on filedocumented in this encounter Care Teams Central Supply Clerk Relationship Specialty Start Date End Date Aroldo Rojo PCP - General 07/15/08 12/21/21 Shirley Borajs MD PCP - General Internal Medicine 12/22/21 documented as of this encounter
--- OUTSIDE RECORDS SUMMARY | 2024-07-25 09:58 | XMS_ITS | Data Portability ---
Author Organization [place] - [facility],, RADHA SKINNER MD Address [address] [address] Assessment No assessment recorded. Plan of Treatment Reminders Order Date Submit Date Provider Last Modified By Organization Details Last Modified Time Details Appointments None recorded. Lab pap test, thinprep, cervical 2022 023 [facility] (Centralized Electronic Ordering - All Locations), Patient Can Go To The Location Of Their Choice, [id number] 3 07:37:29 pap test, thinprep, cervical 2020 021 [facility] Cyt[facility], [address] [place], [address], 1 07:39:17 pap test, thinprep, cervical 2018 019 [facility], [address] [place], [address], 9 07:35:32 pap test, thinprep, cervical 2016 017 [facility], [address] [place], [address], 7 13:45:59 vitamin D, 25-hydrox y, total, serum 2015 016 [id number] [facility], [address] [place], [address], 6 04:20:30 Referral None recorded. Procedures None recorded. Surgeries None recorded. Imaging MAMMO, screening , digital, bilateral - Breast Aspiratio n and/or Biopsy if needed 2022 023 [facility] ([facility]), [address] [place] [address], [address], 3 09:26:31 bone density 2022 023 [facility], [address] [place] [address], [address], 5 07:44:16 MAMMO, screening , digital, bilateral 2020 021 [facility], [address] [place] [address], [address], 1 18:06:43 bone density [address] [facility], [address] [place] [address], [address], 2 08:44:20 MAMMO, screening , digital, bilateral 2018 019 [facility], [address] [place] [address], [address], 0 07:31:31 bone density 2018 019 [facility], [address] [place] [address], [address], 0 07:54:53 MAMMO, screening , digital, bilateral 2016 017 [facility] ([facility]), [address] [place] [address], [address], 8 12:02:10 Medication Orders None recorded. Patient TargetsNo targets recorded. Patient Instructions Encounter Date Encounter Id Patient Instructions Last Modified By Organization Details Last Modified Time 12/11/2015 [id number] She is here for discussion of her [...] 25 minutes. Not available 12/11/2015 10:13:27 11/11/2016 [id number] advance directiv es: care instructions [email or web address] Not [...] questions answered. Not available 11/11/2016 08:39:22 11/15/2018 [id number] atrophic vaginit is: care instructions Not available [...] questions answered. Not available 11/15/2018 11:02:15 11/21/2020 [id number] atrophic vaginit is: care instructions Not available [...] the breast. Not available 11/21/2020 08:59:29 12/10/2022 [id number] atrophic vaginit is: care instructions Not available [...] DO Not Attach Compendium, Do Not Delete/merge, [id number] 11/12/2015 08:23:55 11/12/19 16 11/12/2015 pap, LB [email or web address] ThinP rep Pap, Image d: NEGAT THONY [...] . menop ause, lps neg Not Available [facility] Service [address] [place], [address], 11/13/2015 15:18:53 12/11/19 16 12/11/2015 vitam in D, 25-hy droxy , total , serum comments [facility] [address] [place] [address] [phone] Not Available [facility] [address] [place], [address], 12/12/2015 04:21:54 12/11/19 16 12/11/2015 vitam in D, 25-hy droxy , total , serum vitamin D, 25-hydroxy 30 NG/mL 30-80 Vitam in D Refer ence Range s Defic iency : <20 ng/mL Insuf ficie ncy: 20-29 ng/mL Optim al: 30-80 ng/mL High: >80 ng/mL Not Available [facility] [address] [place], [address], 12/12/2015 04:21:54 11/12/19 17 11/11/2016 pap, LB [id number] ThinP rep Pap, Image d: NEGAT THONY [...] ASCUS . LPS neg. z12.4 Not Available [facility], Cytopathology Service [address] [place], [address], 11/12/2016 13:45:59 11/16/19 19 11/15/2018 pap, LB [id number] ThinP rep Pap, Image d: NEGAT THONY [...] MENOP AUSE, LPS = NEG Not Available [facility], Cytopathology Service [address] [place], [address], 11/17/2018 14:20:42 11/22/19 21 11/21/2020 PAP1C ASE [email or web address] ThinP rep Pap, Image d: NEGAT THONY [...] ASCUS . Lps neg, Z12.4 Not Available [facility] Cytopathology Service [address] [place], [address], 11/25/2020 11:00:41 12/11/19 23 12/10/2022 [facility] CYTOL OGY results Patie nt Name: AJ MINOR HEN Fabian nt : 1950 (Age: 72) Lab Acces gabo #: [id number] Colle ction Date: 2022 Acces gabo Date: 2022 Sign Out Date: 2022 Tissu e Sour e: 1: THINP REP GOLF COURSE PATROLLER PAP TEST, CERVI OLVIN: Final Diagn osis: [...] pearce or vaughn roberts. Perfo rmed at [facility] ate Refer ence Labor at[facility] depar tment of Cytol ogy, [address] [place] Clini olvin Histo ry (othe r): Z12.4 , LPS 11/21 NEG, ROUTI NE SCREE N Phone #: [phone], On-Ca ll Patho logis t: [id number] Not Available [facility] (Centralized Electronic Ordering - All Locations) Patient Can Go To The Location Of Their Choice, [address] 12/14/2022 11:16:37 11/20/19 16 11/19/2015 bone densi ty No observ ation record ed. [email or web address] Not Available 2015 11:40:45 08/19/19 17 08/18/2016 MAMMO , scree brina, digit al, bilat eral No observ ation record ed. Not Available 08/01 16:22:36 09/02/19 18 08/31/2017 MAMMO , scree brina, digit al, bilat eral No observ ation record ed. [facility] ([facility]) [address] [place], [address], 09/02/2017 09:29:55 09/08/19 19 09/07/2018 MAMMO , scree brina, digit al, bilat eral No observ ation record ed. [email or web address] Not Available 2018 09:09:02 09/09/19 19 09/07/2018 MAMMO , scree brina, digit al, bilat eral No observ ation record ed. [facility] ([facility]) [address] [place], [address], 09/08/2018 08:48:23 11/29/19 20 11/28/2019 MAMMO , scree brina, digit al, bilat eral No observ ation record ed. Not Available 11/02 08:12:57 12/03/19 21 12/02/2020 MAMMO , scree brina, digit al, bilat eral No observ ation record ed. Not Available 07/2020 08:13:17 12/04/19 21 12/02/2020 MAMMO , scree brina, digit al, bilat eral No observ ation record ed. [facility] [address] , [place], [address], 12/03/2020 14:32:15 12/11/19 22 12/10/2021 MAMMO , scree brina, digit al, bilat eral No observ ation record ed. [address] ([facility]) [address] [place], [address], 12/10/2021 12:13:04 12/18/19 23 12/17/2022 MAMMO , scree brina, digit al, bilat eral No observ ation record ed. [email or web address] [facility] ([facility]) [address] [place], [address], 12/28/2022 10:55:21 12/29/19 23 12/17/2022 MAMMO , scree brina, digit al, bilat eral No observ ation record ed. [address] ([facility]) [address] [place], [address], 12/28/2022 09:39:32 Result Notes None recorded. Problems Name Problem SNOMED Code Status Onset Date Resolution Date Notes Provider Name and Address Organization Details Recorded Time Vitamin D deficiency 56929768 Active 2009 Radha Skinner MD [address] [facility],[address], [place], [address] , [place] - [facility], 6 10:13:44 Benign essential hypertension 1813471 Active Not Available [facility] 3 03:01:07 Problem Notes None recorded. Procedures Surgical History Date Name Laterality Status Provider Name and Address Organization Details Recorded Time 12/11/19 22 Most Recent Mammogram completed Jayne Black [place] - [facility], 12/10/2022 08:15:20 06/03/19 13 Rep dev, urinary, w/sling completed Radha Skinner MD [address], [place], [address], [place] - [facility], 11/08/2013 08:25:57 05/03/18 72 Tonsillectomy completed Stacey Damico in [facility], 11/07/2012 14:14:42 05/03/18 52 Oophorectomy completed Stacey Damico in [facility], 11/07/2012 14:14:42 Imaging Results Imaging Date Name Status LastModified by Organiz ation Details LastModified Time 11/19/2015 bone density completed fermin Information not available 11/20/2015 11:40:45 08/18/2016 MAMMO, screening, digital, bilateral completed Information not available 08/18/2016 16:22:36 08/31/2017 MAMMO, screening, digital, bilateral completed [facility] ([facility]) [address] [place], [address], 09/02/2017 09:29:55 09/07/2018 MAMMO, screening, digital, bilateral completed [email or web address] Information not available 09/08/2018 09:09:02 09/07/2018 MAMMO, screening, digital, bilateral completed [facility] ([facility]) [address] [place], [address], 09/08/2018 08:48:23 11/28/2019 MAMMO, screening, digital, bilateral completed Information not available 11/30/2019 08:12:57 12/02/2020 MAMMO, screening, digital, bilateral completed Information not available 12/03/2020 08:13:17 12/02/2020 MAMMO, screening, digital, bilateral completed [facility] [address] [place], [address], 12/03/2020 14:32:15 12/10/2021 MAMMO, screening, digital, bilateral completed [facility] ([facility]) [address] [place], [address], 12/10/2021 12:13:04 12/17/2022 MAMMO, screening, digital, bilateral completed [email or web address] [facility] ([facility]) [address] [place], [address], 12/28/2022 10:55:21 12/17/2022 MAMMO, screening, digital, bilateral completed [email or web address] [facility] ([facility]) [address] [place], [address], 12/28/2022 09:39:32 Procedure Notes None recorded. Medical Equipment None Reported. Allergies Allergen ID Allergen Name Allergen Category Reaction Reaction Severity Criticality Documentation Date Start Date Code Code System Note Provider Name and Address Organization Details Recorded Time 5815 Zithromax medicatio n nausea Not available Not available 11/07/2012 4 RxNorm hira rgic Stacey reyna [place] - [facility], 3 14:14:43 Medications Name Sig Start [...] Available Not Available N ot Available Afluria 4506-1039 (PF) 45 mcg(15 mcg x 3)/0.5 mL [...] Address Organization Details Last Updated DateTime 9 83676.4 2 g 27.9 kg/m2 166.37 cm 67 /min 137 mm[Hg] 57 mm[Hg] Stacey Burt [place] - [facility], 9 08:09:40 Date Recorded Body height Body mass index (BMI) Body weight Heart rate Systolic blood pressure Diastolic blood pressure Provider Name and Address Organization Details Last Updated DateTime 1 166.37 cm 29.2 kg/m2 20939.4 4 g 70 /min 132 mm[Hg] 60 mm[Hg] Jayne Damico in [facility], 1 08:50:12 Date Recorded Body weight Body mass index (BMI) Body height Provider Name and Address Organization Details Last Updated DateTime 12/10/2022 77710.66 g 28.7 kg/m2 166.37 cm Jayne Damico in [facility], 12/10/2022 08:04:13 Date Recorded Body height Body weight Body mass index (BMI) Heart rate Systolic blood pressure Diastolic blood pressure Provider Name and Address Organization Details Last Updated DateTime 6 166.37 cm 07461.1 3 g 29 kg/m2 70 /min 136 mm[Hg] 69 mm[Hg] Stacey Damico in [facility], 6 09:13:43 Date Recorded Body height Body mass index (BMI) Body weight Heart rate Systolic blood pressure Diastolic blood pressure Provider Name and Address Organization Details Last Updated DateTime 7 166.37 cm 28.2 kg/m2 10160.1 7 g 66 /min 141 mm[Hg] 68 mm[Hg] Stacey Damico in [facility], 7 08:15:47 Social History Question Answer Notes LastModified by Organizat ion Details LastModified Time Tobacco Smoking Status Former Smoker Not Available [facility] 03/05/2020 03:19:39 Do You Have An Advance Directive? No Information not available 11/21/2020 What Is Your Level Of Alcohol Consumption? Occasional [id number] Information not available 03/05/2020 Are You Blind Or Do You Have Difficulty Seeing? No [id number] Information not available 03/05/2020 Is Blood Transfusion Acceptable In An Emergency? No Information not available 11/21/2020 What Is Your Level Of Caffeine Consumption? Moderate Information not available 12/10/2022 In The 14 Days Before Symptom Onset, Have You Had Close Contact With A [facility] While That Case Was Ill? No Information [...] Do You Have Serious Difficulty Hearing? No [id number] Information not available 03/05/2020 What Type Of Diet Are You Following? REGULAR [id number] Information not available 03/05/2020 Which Illicit Or Recreational Drugs Have You Used? No [id number] Information not available 03/05/2020 Do You Reside In Or Have You Traveled To An Area Where Ebola Virus Transmission Is Active? No [id number] Information not available 03/05/2020 Education Post Graduate Information not available 11/07/2012 What Is The Highest Grade Or Level Of School You Have Completed Or The Highest Degree You Have Received? 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 Yes [id number] Information not available 03/05/2020 Do You Have Smoke And Carbon Monoxide Detectors In Your Home? Yes Information not available 11/21/2020 How Much Tobacco Do You Smoke? No [id number] Information not available 03/05/2020 General Stress Level Low Information not available 11/15/2018 Do You Use Any Illicit Or Recreational Drugs? No Information not available 11/21/2020 Do You Use Sunscreen Routinely? Yes Information not available 11/21/2020 How Many Years Have You Smoked Tobacco? 1 [id number] Information not available 03/05/2020 Have You Recently [...] have difficulty walking or climbing stairs? No [id number] Information not available 03/05/2020 Do you have difficulty doing errands alone? No [id number] Information not available 03/05/2020 Do you have difficulty dressing or bathing? No [id number] Information not available 03/05/2020 What is your exercise level? Heavy [id number] Information not available 03/05/2020 Mental Status Question Answer Note LastModified by Organization D etails LastModified Time Do you have difficulty concentrating, remembering or making decisions? No [id number] Information no t available 03/05/2020 Family History Relationship Description Onset Age of this Age Resolved Age Notes LastModified by Organization Details LastModified Time Maternal Grandmother Malignant neoplastic disease 85 previo usly record ed as Cancer Not available 11/09/2014 08:19:01 Father Diabetes mellitus previo usly record ed as Diabet es Not available 11/09/2014 08:19:01 Brother Myocardial infarction previo usly record ed as Heart Attack (ME) x2 Not available 11/09/2014 08:19:01 Maternal Grandfather Malignant neoplastic disease previo usly record ed as Cancer Not available 11/09/2014 08:19:01 Medical History Condition Response Anesthesia complications N High Blood Pressure Y Candidate for MyRisk panel N Autoimmune Condition N Thyroid Problems N Kidney or Bladder Problems Y GI Problems N Lung Disease N Depression N Defects or Inherited Disease N Anemia N History of Ovarian Cancer N History of Breast Cancer N REMEDIOS exposure N BRCA testing in past N Osteopenia N Psychiatric Illness N Anxiety Disorder N Diabetes N Arthritis Y Headaches or Migraines N Infertility N Asthma N History of Cancer N Endometriosis N Hepatitis N Heart Disease N Hypertension [...] Time polio, unspecified formulation 3 completed Stacey Mecshaniwayad reyna [place] - [facility], 11/09/2014 08:11:37 Hep A, adult 4 completed Stacey Meczywor null, [place] - [facility], 11/09/2014 08:11:37 typhoid, oral 3 completed Stacey Meczywor maribell [place] - [facility], 11/09/2014 08:11:37 Tdap 3 completed Stacey Meczywor null, [place] - [facility], 11/09/2014 08:11:37 Influenza, split virus, quadrivalent, preservative 5 completed Stacey Meczywor null, [place] - [facility], 11/12/2015 08:17:10 pneumococcal, unspecified formulation 5 completed Stacey Meczywor null [place] - [facility], 11/12/2015 08:17:55 zoster live 5 completed Stacey Meczywor null [place] - [facility], 11/12/2015 08:18:21 zoster live 9 completed Staceyquintin reyna [place] - [facility], 11/15/2018 08:12:22 Influenza, split virus, quadrivalent, preservative 8 completed Stacey Meczywor null, [place] [facility], 11/15/2018 08:12:47 zoster recombinant 9 completed Stacey Meczywor null, [place] [facility], 12/10/2022 08:03:56 zoster recombinant 9 completed Stacey Meczywor null, [place] [facility], 12/10/2022 08:03:56 Influenza, high-dose, quadrivalent, PF 2 completed Stacey Meczywor null, [place] - [facility], 12/10/2022 08:03:56 COVID-19, mRNA, LNP-S, PF, 100 mcg/0.5mL dose or 50 mcg/0.25mL dose 1 completed Stacey Meczywor null, [place] - [facility], 12/10/2022 08:03:57 COVID-19, mRNA, LNP-S, PF, 100 mcg/0.5mL dose or 50 mcg/0.25mL dose 1 completed Stacey Meczywor null, [place] - [facility], 12/10/2022 08:03:57 COVID-19, mRNA, LNP-S, PF, 100 mcg/0.5mL dose or 50 mcg/0.25mL dose 2 completed Stacey Meczywor null, [place] - [facility], 12/10/2022 08:03:57 COVID-19, mRNA, LNP-S, PF, 100 mcg/0.5mL dose or 50 mcg/0.25mL dose 1 completed Stacey Meczywor null, [place] - [facility], 12/10/2022 08:03:57 Pneumococcal conjugate PCV20, polysaccharide ZIH238 conjugate, adjuvant, PF 3 completed Stacey Meczywor null, [place] - [facility], 12/10/2022 08:03:57 COVID-19, mRNA, LNP-S, bivalent, PF, 50 mcg/0.5 mL or 25mcg/0.25 mL dose 2 completed Stacey Meczywor null, [place] - [facility], 12/10/2022 08:03:57 influenza, unspecified formulation 2 completed Stacey Meczywor null, [place] [facility], 12/10/2022 08:03:57 Tdap 3 completed Stacey Meczywor null, [place] - [facility], 12/10/2022 08:03:57 Influenza, split virus, trivalent, preservative 1 completed Stacey Meczywor null, [place] - [facility], 12/10/2022 08:03:57 Influenza, split virus, trivalent, PF 7 completed Stacey Meczywor null, [place] - [facility], 12/10/2022 08:03:57 Past Encounters Encounter ID Performer Location Encounter Start Date Encounter Closed Date Diagnosis/Indication Diagnosis SNOMED-CT Code Diagnosis ICD10 Code Diagnosis Note [id number] Jennifer Hooker RADHA SKINENR MD [address] [place] [address], [address] [place] [address] 11/07/2012 13:42:33 11/07/2012 16:26:55 [id number] Stacey SKINNER MD [address] [place] [address], [address] [place] [address] 11/08/2013 08:01:42 11/08/2013 10:52:29 Specialized medical examination 88900756 Screening for malignant neoplasm of rectum 582907059 Screening mammography [id number] RADHA SKINNER MD [address] [facility] [address] [place] [address] 11/09/2014 07:56:07 11/09/2014 12:57:19 Specialized medical examination 62442938 Screening for malignant neoplasm of rectum 647948176 Screening mammography 99398753 [id number] MD RADHA Sorensen MD [address] [facility], [address] [place] [address] 11/12/2015 08:08:55 11/12/2015 11:13:43 Specialized medical examination 55096421 Z01.419 Screening for malignant neoplasm of rectum 658746427 Z12.12 Screening mammography 24 326318 Z12.31 Menopausal syndrome 1237 19328 N95.9 [id number] MD RADHA Sorensen MD [address] [place] [address] [place] [address] 12/11/2015 09:02:33 12/11/2015 10:53:48 Osteopenia 391561979 M85.852 Vitamin D deficiency 347 41682 E55.9 [id number] MD RADHA Sorensen MD [address] [place], [place] [address] [address] 11/11/2016 07:58:55 11/11/2016 09:52:37 Screening for malignant neoplasm of cervix 745190592 Z12.4 Screening mammography 24 262378 Z12.31 Cares for self 297528582 Z76.89 [id number] MD RADHA Sorensen MD [address] [place] [address] [place] [address] 11/15/2018 07:55:22 11/15/2018 11:17:51 Screening for malignant neoplasm of cervix 442262971 Z12.4 Screening mammography 24 241945 Z12.31 Screening for osteoporosis 483349415 Z13.820 [id number] MD RADHA Sorensen MD [address] [place] [address] [place] [address] 11/21/2020 08:18:49 11/21/2020 10:40:27 Screening for malignant neoplasm of cervix 916257777 Z12.4 Screening mammography 24 277958 Z12.31 Screening for osteoporosis 636620785 N95.8 [id number] MD RADHA Sorensen MD [address] [place], [place] [address] [address] 12/10/2022 08:01:35 12/10/2022 09:31:36 Screening for malignant neoplasm of cervix 293998866 Z12.4 Screening mammography 24 688559 Z12.31 Screening for osteoporosis 141505265 N95.8 Health Concerns Section Related Observation LastModified by Organization Detai ls LastModified Time None Recorded Concern Status LastModified by Organization Details LastModified Time None Recorded Advance Directives Directive N: Payers Encounter Date Sequence Insurance Name Policy Number Policy Guajardo Covered Member ID Guajardo Member ID Guarantor Name 12/11/2015 1 [employer] - GIC (INDEMNITY) [id number] Jessica Schwamb [id number] Jessica Schwamb 11/11/2016 2 [employer] - SENIOR SERVICES PLAN F (MEDICARE SUPPLEMENT) [id number] Jessica Schwamb [id number] Jessica Schwamb 11/11/2016 1 [place] Jessica W Schwamb [id number] Jessica Schwamb 11/15/2018 2 [employer] - SENIOR SERVICES PLAN F (MEDICARE SUPPLEMENT) [id number] Jessica Schwamb [id number] Jessica Schwamb 11/15/2018 1 [place] Jessica W Schwamb [id number] Jessica Schwamb 11/21/2020 2 [employer] - SENIOR SERVICES PLAN F (MEDICARE SUPPLEMENT) [id number] Jessica Schwamb [id number] Jessica Schwamb 11/21/2020 1 [place] Jessica W Schwamb [id number] Jessica Schwamb 12/10/2022 2 [employer] - SENIOR SERVICES PLAN F (MEDICARE SUPPLEMENT) [id number] Jessica Schwamb [id number] Jessica Schwamb 12/10/2022 1 [place] Jessica W Schwamb [id number] Jessica Schwamb Notes Date Note Type Note Provider Name and Address Organization Details Recorded Time 12/11/2015 text/html She is here for discussion of her recent bone density which showed osteopenia with a T score of -1.2 in the left hip. Radha Skinner MD [address] [place] [address],[address], [place], [address], [place] - [facility], 12/11/2015 10:14:12 11/11/2016 text/html She is here for annual exam, is doing well. Bone density of -1.2 last year. Radha Skinner MD [address], [place], [address], [place] - [facility], 11/11/2016 09:55:19 11/15/2018 text/html She is here for annual exam, is doing well. Her Azam is her health care proxy. Radha Skinner MD [address], [place], [address], [place] - [facility], 11/15/2018 11:02:34 11/21/2020 text/html She is here for annual exam, is doing well. Her Azam is her health care proxy. Radha Skinner MD [address], [place], [id number], [place] - [facility], 11/21/2020 08:59:56 12/10/2022 text/html She is here for annual exam, is doing well. Her Azam is her health care proxy. Radha Skinner MD [address], [place], [address], [place] - [facility], 12/10/2022 09:07:05 OBGyn Episode No OBEpisode recorded.
== END 2024-07-25 10:05 | disposition home or self-care (01) ==
PROVIDERS: PCP Internal Medicine; Visit Provider Nurse Practitioner Family
DX: J06.9 Acute upper respiratory infection, unspecified (principal); H10.9 Unspecified conjunctivitis

== ENCOUNTER 2024-08-28 13:16 | Outpatient (AMB) | payer MEDICARE, OTHER, SELFPAY ==
--- NOTE | 2024-08-28 13:20 | A.OFFVIS_ITS ---
Vital Signs 08/28/24 13:48 Height 5 ft 5 in Weight 181 lb BMI 30.1 Intake Visit Reasons: [employer]- b/l knee pain Intake Note: Jessica is a 74 year old female who presents today for a new patient evaluation of bilateral knee pain. Patient was referred by her PCP. Patient reports intermittent ache in her knees, depending on salt intake/water pill intake. She has discomfort with going down stairs. States feeling no strength in her knees. At times her right knee clicks with movement. States being told that she walks weird. No previous tx. History of a right knee injury when she was skiing about 2 years ago. Allergies zpack Allergy (Severe, Uncoded 08/28/24 13:42) Diarrhea HPI HPI [employer]INE- b/l knee pain: Details: Ms. Epperson is a 74-year-old female who presents to the office today for evaluation of bilateral knee pain. She denies any injury or trauma to the area. She has noticed a gradual increase in discomfort and soreness over time. She reports that she has noted the activities causing an increase in pain is prolonged swimming and pushing off the side of the pool, as well as descending stairs. 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 No ecchymosis erythema or joint effusion. Able to perform full range of motion with mild crepitus. No tenderness to pa lpation medial and lateral joint lines. NVI. Office Procedures AMB Joint Injection/Aspiration Joint Injection/Aspiration Primary Site: right knee Secondary Site: left knee Prep: site was prepped using aseptic technique, ethochloride spray was applied and injection warnings given Injected: 80 mg of, DepoMedrol and with 8 mL of (2% plain lidocaine) Approach Used: anterolateral Procedure: The patient tolerated the procedure well, but had some pain with the injection and there was some relief with the local anesthesia Coding - Bilateral Large Joint Procedure code (CPT) selection complete Assessment & Plan Assessment & Plan (1) Osteoarthritis of knees, bilateral: Code(s): M17.0 - Bilateral primary osteoarthritis of knee Category: Medical Plan The patient was offered a cortisone injection in bilateral knees with 80 mg of DepoMedrol. The patient was explained the risks, benefits, and alternatives to receiving this injection. After receiving consent for the injection, the patient had the procedure done while in the office today. The patient tolerated the procedure well with no complications. I did educate the patient that she may have an increase in pain in 2 refrain from any heavy activity for the rest of the day today. She may take Tylenol, ibuprofen ice elevate as needed. Follow-up will be p.r.n., or sooner if needed X-rays of bilateral knees which were obtained while in the office today and were reviewed by me, Stephanie Estevez PA-C, revealed mild arthritic changes. No acute fracture or dislocation. Orders: Orders XR knee LT 3V Today M25.569 - Pain in unspecified knee XR knee RT 3V Today M25.569 - Pain in unspecified knee XR Knee Moises 3V Today M25.561 - Pain in right knee, M25.562 - Pain in left knee Coding Level of Care Code New Pt Level 3 (58275) Diagnoses Osteoarthritis of knees, bilateral M17.0 CPT Codes Coding - - Bilateral Large Joint: 13860 - Bilateral Large Joint ([id number])
[2024-08-28 13:48] VITALS: BMI 30.1
--- OUTSIDE RECORDS SUMMARY | 2024-08-28 15:45 | XMS_ITS | Data Portability ---
Author Organization [place] - [facility],, RADHA SKINNER MD Address [address] [address] Assessment No assessment recorded. Plan of Treatment Reminders Order Date Submit Date Provider Last Modified By Organization Details Last Modified Time Details Appointments None recorded. Lab pap test, thinprep, cervical 2022 023 [facility] (Centralized Electronic Ordering - All Locations), Patient Can Go To The Location Of Their Choice, [address] 3 07:37:29 pap test, thinprep, cervical 2020 021 [facility] Cytopathology Service, [address] [place], [address], 1 07:39:17 pap test, thinprep, cervical 2018 019 [facility], [address] [place], [address], 9 07:35:32 pap test, thinprep, cervical 2016 017 [facility], [address] [place], [address], 7 13:45:59 vitamin D, 25-hydrox y, total, serum 2015 016 [id number] [facility], [address] [place], [address], 6 04:20:30 Referral None recorded. Procedures None recorded. Surgeries None recorded. Imaging MAMMO, screening , digital, bilateral - Breast Aspiratio n and/or Biopsy if needed [address] [facility] ([facility]), [address] [place] [address], [address], 3 09:26:31 bone density 2022 023 [facility], [address] [place] [address], [address], 5 07:44:16 MAMMO, screening , digital, bilateral 2020 021 [facility], [address] [place] [address], [address], 1 18:06:43 bone density 2020 021 [facility], [address] [place] [address], [address], 2 08:44:20 MAMMO, screening , digital, bilateral 2018 019 [facility], [address] [place] [address], [address], 0 07:31:31 bone density 2018 019 [facility], [address] [place] [address], [address], 0 07:54:53 MAMMO, screening , digital, bilateral [address] [facility] ([facility]), [address] [place] [address], [address], 8 12:02:10 Medication Orders None recorded. Patient TargetsNo targets recorded. Patient Instructions Encounter Date Encounter Id Patient Instructions Last Modified By Organization Details Last Modified Time 12/11/2015 [id number] She is here for discussion of her [...] 25 minutes. Not available 12/11/2015 10:13:27 11/11/2016 [id number] advance directiv es: care instructions [email or web address] Not [...] questions answered. Not available 11/11/2016 08:39:22 11/15/2018 [id number] atrophic vaginit is: care instructions Not available [...] questions answered. Not available 11/15/2018 11:02:15 11/21/2020 [id number] atrophic vaginit is: care instructions Not available [...] the breast. Not available 11/21/2020 08:59:29 12/10/2022 [id number] atrophic vaginit is: care instructions Not available [...] DO Not Attach Compendium, Do Not Delete/merge, [id number] 11/12/2015 08:23:55 11/12/19 16 11/12/2015 pap, LB [id number] ThinP rep Pap, Image d: NEGAT THONY [...] . menop ause, lps neg Not Available [facility] Service [address] [place], [address], 11/13/2015 15:18:53 12/11/19 16 12/11/2015 vitam in D, 25-hy droxy , total , serum comments [facility] [address] [facility] [place] [address] [phone] Not Available [facility] [address] [place], [address], 12/12/2015 04:21:54 12/11/19 16 12/11/2015 vitam in D, 25-hy droxy , total , serum vitamin D, 25-hydroxy 30 NG/mL 30-80 Vitam in D Refer ence Range s Defic iency : <20 ng/mL Insuf ficie ncy: 20-29 ng/mL Optim al: 30-80 ng/mL High: >80 ng/mL Not Available [facility] [address] [place], [address], 12/12/2015 04:21:54 11/12/19 17 11/11/2016 pap, LB [id number] ThinP rep Pap, Image d: NEGAT THONY [...] ASCUS . LPS neg. z12.4 Not Available [facility], Cytopathology Service [address] [place], [address], 11/12/2016 13:45:59 11/16/19 19 11/15/2018 pap, LB [id number] ThinP rep Pap, Image d: NEGAT THONY [...] MENOP AUSE, LPS = NEG Not Available [facility], Cytopathology Service [address] [place], [address], 11/17/2018 14:20:42 11/22/19 21 11/21/2020 PAP1C ASE [email or web address] ThinP rep Pap, Image d: NEGAT THONY [...] ASCUS . 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 Perfo rmed at [facility] ate Refer ence Labor at[facility] depar tment of Cytol ogy, [address] [place] Clini olvin Histo ry (othe r): Z12.4 , LPS 11/21 NEG, ROUTI NE SCREE N Phone #: [phone], On-Ca ll Patho logis t: [address] Not Available [facility] (Centralized Electronic Ordering - All Locations) Patient Can Go To The Location Of Their Choice, [address] 12/14/2022 11:16:37 11/20/19 16 11/19/2015 bone densi ty No observ ation record ed. [email or web address] Not Available 2015 11:40:45 08/19/19 17 08/18/2016 MAMMO , scree brina, digit al, bilat eral No observ ation record ed. Not Available 08/01 16:22:36 09/02/19 18 08/31/2017 MAMMO , scree brina, digit al, bilat eral No observ ation record ed. [facility] ([facility]) [address] [place], [address], 09/02/2017 09:29:55 09/08/19 19 09/07/2018 MAMMO , scree brina, digit al, bilat eral No observ ation record ed. [email or web address] Not Available 2018 09:09:02 09/09/19 19 09/07/2018 MAMMO , scree brina, digit al, bilat eral No observ ation record ed. [facility] ([facility]) [address] [place], [address], 09/08/2018 08:48:23 11/29/19 20 11/28/2019 MAMMO , scree brina, digit al, bilat eral No observ ation record ed. Not Available 11/02 08:12:57 12/03/19 21 12/02/2020 MAMMO , scree brina, digit al, bilat eral No observ ation record ed. Not Available 07/2020 08:13:17 12/04/19 21 12/02/2020 MAMMO , scree brina, digit al, bilat eral No observ ation record ed. [facility] [address] , [place], [address], 12/03/2020 14:32:15 12/11/19 22 12/10/2021 MAMMO , scree brina, digit al, bilat eral No observ ation record ed. [address] ([facility]) [address] [place], [address], 12/10/2021 12:13:04 12/18/19 23 12/17/2022 MAMMO , scree brina, digit al, bilat eral No observ ation record ed. [email or web address] [facility] ([facility]) [address] [place], [address], 12/28/2022 10:55:21 12/29/19 23 12/17/2022 MAMMO , scree brina, digit al, bilat eral No observ ation record ed. [address] ([facility]) [address] [place], [address], 12/28/2022 09:39:32 Result Notes None recorded. Problems Name Problem SNOMED Code Status Onset Date Resolution Date Notes Provider Name and Address Organization Details Recorded Time Vitamin D deficiency 36482225 Active 2009 Radha Skinner MD [address] [facility],[address], [place], [address] , [place] - [facility], 6 10:13:44 Benign essential hypertension 5857742 Active Not Available [facility] 3 03:01:07 Problem Notes None recorded. Procedures Surgical History Date Name Laterality Status Provider Name and Address Organization Details Recorded Time 12/11/19 22 Most Recent Mammogram completed Jayne Black [place] - [facility], 12/10/2022 08:15:20 06/03/19 13 Rep dev, urinary, w/sling completed Radha Skinner MD [address], [place], [address], [place] - [facility], 11/08/2013 08:25:57 05/03/18 72 Tonsillectomy completed Stacey Damico in [facility], 11/07/2012 14:14:42 05/03/18 52 Oophorectomy completed Stacey Damico in [facility], 11/07/2012 14:14:42 Imaging Results Imaging Date Name Status LastModified by Organiz ation Details LastModified Time 11/19/2015 bone density completed fermin Information not available 11/20/2015 11:40:45 08/18/2016 MAMMO, screening, digital, bilateral completed Information not available 08/18/2016 16:22:36 08/31/2017 MAMMO, screening, digital, bilateral completed [facility] ([facility]) [address] [place], [address], 09/02/2017 09:29:55 09/07/2018 MAMMO, screening, digital, bilateral completed [email or web address] Information not available 09/08/2018 09:09:02 09/07/2018 MAMMO, screening, digital, bilateral completed [facility] ([facility]) [address] [place], [address], 09/08/2018 08:48:23 11/28/2019 MAMMO, screening, digital, bilateral completed Information not available 11/30/2019 08:12:57 12/02/2020 MAMMO, screening, digital, bilateral completed Information not available 12/03/2020 08:13:17 12/02/2020 MAMMO, screening, digital, bilateral completed [facility] [address] [place], [address], 12/03/2020 14:32:15 12/10/2021 MAMMO, screening, digital, bilateral completed [facility] ([facility]) [address] [place], [address], 12/10/2021 12:13:04 12/17/2022 MAMMO, screening, digital, bilateral completed [email or web address] [facility] ([facility]) [address] [place], [address], 12/28/2022 10:55:21 12/17/2022 MAMMO, screening, digital, bilateral completed [email or web address] [facility] ([facility]) [address] [place], [address], 12/28/2022 09:39:32 Procedure Notes None recorded. Medical Equipment None Reported. Allergies Allergen ID Allergen Name Allergen Category Reaction Reaction Severity Criticality Documentation Date Start Date Code Code System Note Provider Name and Address Organization Details Recorded Time 5336 Zithromax medicatio n nausea Not available Not available 11/07/2012 4 RxNorm hira rgic Stacey reyna [place] - [facility], 3 14:14:43 Medications Name Sig Start [...] Available Not Available N ot Available Afluria 4236-0964 (PF) 45 mcg(15 mcg x 3)/0.5 mL [...] Address Organization Details Last Updated DateTime 9 41899.4 2 g 27.9 kg/m2 166.37 cm 67 /min 137 mm[Hg] 57 mm[Hg] Stacey Burt [place] - [facility], 9 08:09:40 Date Recorded Body height Body mass index (BMI) Body weight Heart rate Systolic blood pressure Diastolic blood pressure Provider Name and Address Organization Details Last Updated DateTime 1 166.37 cm 29.2 kg/m2 51292.4 4 g 70 /min 132 mm[Hg] 60 mm[Hg] Jayne Damico in [facility], 1 08:50:12 Date Recorded Body weight Body mass index (BMI) Body height Provider Name and Address Organization Details Last Updated DateTime 12/10/2022 84105.66 g 28.7 kg/m2 166.37 cm Jayne Damico in [facility], 12/10/2022 08:04:13 Date Recorded Body height Body weight Body mass index (BMI) Heart rate Systolic blood pressure Diastolic blood pressure Provider Name and Address Organization Details Last Updated DateTime 6 166.37 cm 59759.1 3 g 29 kg/m2 70 /min 136 mm[Hg] 69 mm[Hg] Stacey Damico in [facility], 6 09:13:43 Date Recorded Body height Body mass index (BMI) Body weight Heart rate Systolic blood pressure Diastolic blood pressure Provider Name and Address Organization Details Last Updated DateTime 7 166.37 cm 28.2 kg/m2 04915.1 7 g 66 /min 141 mm[Hg] 68 mm[Hg] Stacey Damico in [facility], 7 08:15:47 Social History Question Answer Notes LastModified by Organizat ion Details LastModified Time Tobacco Smoking Status Former Smoker Not Available [facility] 03/05/2020 03:19:39 Do You Have An Advance Directive? No Information not available 11/21/2020 What Is Your Level Of Alcohol Consumption? Occasional [id number] Information not available 03/05/2020 Are You Blind Or Do You Have Difficulty Seeing? No [id number] Information not available 03/05/2020 Is Blood Transfusion Acceptable In An Emergency? No Information not available 11/21/2020 What Is Your Level Of Caffeine Consumption? Moderate Information not available 12/10/2022 In The 14 Days Before Symptom Onset, Have You Had Close Contact [facility] While That Case Was Ill? No Information [...] Do You Have Serious Difficulty Hearing? No [id number] Information not available 03/05/2020 What Type Of Diet Are You Following? REGULAR [id number] Information not available 03/05/2020 Which Illicit Or Recreational Drugs Have You Used? No [id number] Information not available 03/05/2020 Do You Reside In Or Have You Traveled To An Area Where Ebola Virus Transmission Is Active? No [id number] Information not available 03/05/2020 Education Post Graduate Information not available 11/07/2012 What Is The Highest Grade Or Level Of School You Have Completed Or The Highest Degree You Have Received? 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 Yes [id number] Information not available 03/05/2020 Do You Have Smoke And Carbon Monoxide Detectors In Your Home? Yes Information not available 11/21/2020 How Much Tobacco Do You Smoke? No [id number] Information not available 03/05/2020 General Stress Level Low Information not available 11/15/2018 Do You Use Any Illicit Or Recreational Drugs? No Information not available 11/21/2020 Do You Use Sunscreen Routinely? Yes Information not available 11/21/2020 How Many Years Have You Smoked Tobacco? 1 [id number] Information not available 03/05/2020 Have You Recently [...] have difficulty walking or climbing stairs? No [id number] Information not available 03/05/2020 Do you have difficulty doing errands alone? No [id number] Information not available 03/05/2020 Do you have difficulty dressing or bathing? No [id number] Information not available 03/05/2020 What is your exercise level? Heavy [id number] Information not available 03/05/2020 Mental Status Question Answer Note LastModified by Organization D etails LastModified Time Do you have difficulty concentrating, remembering or making decisions? No [id number] Information no t available 03/05/2020 Family History Relationship Description Onset Age of this Age Resolved Age Notes LastModified by Organization Details LastModified Time Maternal Grandmother Malignant neoplastic disease 85 previo usly record ed as Cancer Not available 11/09/2014 08:19:01 Father Diabetes mellitus previo usly record ed as Diabet es Not available 11/09/2014 08:19:01 Brother Myocardial infarction previo usly record ed as Heart Attack ([place]) x2 Not available 11/09/2014 08:19:01 Maternal Grandfather Malignant neoplastic disease previo usly record ed as Cancer Not available 11/09/2014 08:19:01 Medical History Condition Response Anesthesia complications N High Blood Pressure Y Candidate for MyRisk panel N Autoimmune Condition N Kidney or Bladder Problems Y Thyroid Problems N Depression N Lung Disease N GI Problems N Defects or Inherited Disease N Anemia [...] Stacey Mecshaniwayad reyna [place] - [facility], 11/09/2014 08:11:37 Hep A, adult 4 completed Stacey Meczywor null, [place] - [facility], 11/09/2014 08:11:37 typhoid, oral 3 completed Stacey Meczywayad reyna [place] - [facility], 11/09/2014 08:11:37 Tdap 3 completed Stacey Meczywor null, [place] - [facility], 11/09/2014 08:11:37 Influenza, split virus, quadrivalent, preservative 5 completed Stacey Meczywor null [place] - [facility], 11/12/2015 08:17:10 pneumococcal, unspecified formulation 5 completed Stacey Meczywor maribell [place] - [facility], 11/12/2015 08:17:55 zoster live 5 completed Stacey Meczywor null [place] - [facility], 11/12/2015 08:18:21 zoster live 9 completed Staceyquintin reyna [place] - [facility], 11/15/2018 08:12:22 Influenza, split virus, quadrivalent, preservative 8 completed Stacey Meczywor null, [place] - [facility], 11/15/2018 08:12:47 zoster recombinant 9 completed Stacey Meczywor null, [place] [facility], 12/10/2022 08:03:56 zoster recombinant 9 completed Stacey Meczywor null, [place] [facility], 12/10/2022 08:03:56 Influenza, high-dose, quadrivalent, PF 2 completed Stacey Meczywor null, [place] - [facility], 12/10/2022 08:03:56 COVID-19, mRNA, LNP-S, PF, 100 mcg/0.5mL dose or 50 mcg/0.25mL dose 1 completed Stacey Meczywor null, [place] - [facility], 12/10/2022 08:03:57 COVID-19, mRNA, LNP-S, PF, 100 mcg/0.5mL dose or 50 mcg/0.25mL dose 1 completed Stacey Meczywor null, [place] - [facility], 12/10/2022 08:03:57 COVID-19, mRNA, LNP-S, PF, 100 mcg/0.5mL dose or 50 mcg/0.25mL dose 2 completed Stacey Meczywor null, [place] - [facility], 12/10/2022 08:03:57 COVID-19, mRNA, LNP-S, PF, 100 mcg/0.5mL dose or 50 mcg/0.25mL dose 1 completed Stacey Meczywor null, [place] - [facility], 12/10/2022 08:03:57 Pneumococcal conjugate PCV20, polysaccharide [id number] conjugate, adjuvant, PF 3 completed Stacey Meczywor null, [place] - [facility], 12/10/2022 08:03:57 COVID-19, mRNA, LNP-S, bivalent, PF, 50 mcg/0.5 mL or 25mcg/0.25 mL dose 2 completed Stacey Meczywor null, [place] - [facility], 12/10/2022 08:03:57 influenza, unspecified formulation 2 completed Stacey Meczywor null, [place] - [facility], 12/10/2022 08:03:57 Tdap 3 completed Stacey Meczywor null, [place] - [facility], 12/10/2022 08:03:57 Influenza, split virus, trivalent, preservative 1 completed Stacey Meczywor null, [place] - [facility], 12/10/2022 08:03:57 Influenza, split virus, trivalent, PF 7 completed Stacey Meczywor null, [place] - [facility], 12/10/2022 08:03:57 Past Encounters Encounter ID Performer Location Encounter Start Date Encounter Closed Date Diagnosis/Indication Diagnosis SNOMED-CT Code Diagnosis ICD10 Code Diagnosis Note [id number] Jennifer Hooker RADHA SKINNER MD [address] [place] [address], [address] [place] [address] 11/07/2012 13:42:33 11/07/2012 16:26:55 [id number] Stacey SKINNER MD [address] [place] [address], [address] [place] [address] 11/08/2013 08:01:42 11/08/2013 10:52:29 Specialized medical examination 76183562 Screening for malignant neoplasm of rectum 320232532 Screening mammography [id number] RADHA SKINNER MD [address] [facility] [address] [place] [address] 11/09/2014 07:56:07 11/09/2014 12:57:19 Specialized medical examination 68070255 Screening for malignant neoplasm of rectum 173164326 Screening mammography [id number] MD RADHA Sorensen MD [address] [facility], [address] [place] [address] 11/12/2015 08:08:55 11/12/2015 11:13:43 Specialized medical examination 81900523 Z01.419 Screening for malignant neoplasm of rectum 961189353 Z12.12 Screening mammography 24 606405 Z12.31 Menopausal syndrome 1237 82673 N95.9 [id number] MD RADHA Sorensen MD [address] [place] [address] [place] [address] 12/11/2015 09:02:33 12/11/2015 10:53:48 Osteopenia 852250137 M85.852 Vitamin D deficiency 347 13496 E55.9 [id number] MD RADHA Sorensen MD [address] [place], [place] [address] [place] [address] 11/11/2016 07:58:55 11/11/2016 09:52:37 Screening for malignant neoplasm of cervix 733311303 Z12.4 Screening mammography 24 443159 Z12.31 Cares for self 778298737 Z76.89 [id number] MD RADHA Sorensen MD [address] [place] [address] [place] [address] 11/15/2018 07:55:22 11/15/2018 11:17:51 Screening for malignant neoplasm of cervix 770759044 Z12.4 Screening mammography 24 663286 Z12.31 Screening for osteoporosis 755889751 Z13.820 [id number] MD RADHA Sorensen MD [address] [place] [address] [place] [address] 11/21/2020 08:18:49 11/21/2020 10:40:27 Screening for malignant neoplasm of cervix 762610608 Z12.4 Screening mammography 24 434267 Z12.31 Screening for osteoporosis 390114041 N95.8 [id number] MD RADHA Sorensen MD [address] [place], [place] [address] [address] 12/10/2022 08:01:35 12/10/2022 09:31:36 Screening for malignant neoplasm of cervix 259315870 Z12.4 Screening mammography 24 911918 Z12.31 Screening for osteoporosis 893457272 N95.8 Health Concerns Section Related Observation LastModified by Organization Detai ls LastModified Time None Recorded Concern Status LastModified by Organization Details LastModified Time None Recorded Advance Directives Directive N: Payers Encounter Date Sequence Insurance Name Policy Number Policy Guajardo Covered Member ID Guajardo Member ID Guarantor Name 12/11/2015 1 [employer] - GIC (INDEMNITY) [id number] Jessica Schwamb [id number] Jessica Schwamb 11/11/2016 2 [employer] - SENIOR SERVICES PLAN F (MEDICARE SUPPLEMENT) [id number] Jessica Schwamb [id number] Jessica Schwamb 11/11/2016 1 [place] Jessica W Schwamb [id number] Jessica Schwamb 11/15/2018 2 [employer] - SENIOR SERVICES PLAN F (MEDICARE SUPPLEMENT) [id number] Jessica Schwamb [id number] Jessica Schwamb 11/15/2018 1 [place] Jessica W Schwamb [id number] Jessica Schwamb 11/21/2020 2 [employer] - SENIOR SERVICES PLAN F (MEDICARE SUPPLEMENT) [id number] Jessica Schwamb [id number] Jessica Schwamb 11/21/2020 1 [place] Jessica W Schwamb [id number] Jessica Schwamb 12/10/2022 2 [employer] - SENIOR SERVICES PLAN F (MEDICARE SUPPLEMENT) [id number] Jessica Schwamb [id number] Jessica Schwamb 12/10/2022 1 [place] Jessica W Schwamb [id number] Jessica Schwamb Notes Date Note Type Note Provider Name and Address Organization Details Recorded Time 12/11/2015 text/html She is here for discussion of her recent bone density which showed osteopenia with a T score of -1.2 in the left hip. Radha Skinner MD [address] [place] [address],[address], [place], [address], [place] - [facility], 12/11/2015 10:14:12 11/11/2016 text/html She is here for annual exam, is doing well. Bone density of -1.2 last year. Radha Skinner MD [address], [place], [address], [place] - [facility], 11/11/2016 09:55:19 11/15/2018 text/html She is here for annual exam, is doing well. Her Azam is her health care proxy. Radha Siknner MD [address], [place], [address], [place] - [facility], 11/15/2018 11:02:34 11/21/2020 text/html She is here for annual exam, is doing well. Her Azam is her health care proxy. Radha Skinner MD [address], [place], [address], [place] - [facility], 11/21/2020 08:59:56 12/10/2022 text/html She is here for annual exam, is doing well. Her Azam is her health care proxy. Radha Skinner MD [address], [place], [address], [place] - [facility], 12/10/2022 09:07:05 OBGyn Episode No OBEpisode recorded.
== END 2024-08-28 15:58 | disposition home or self-care (01) ==
LOC: HO.HOS 13:17
PROVIDERS: PCP Internal Medicine; Visit Provider Physician Assistant
DX: M17.0 Bilateral primary osteoarthritis of knee (principal)
CPT/HCPCS: 20610; 99203

== ENCOUNTER 2024-08-28 13:28 | Outpatient (REF) | payer MEDICARE, OTHER, SELFPAY ==
--- NOTE | ~2024-08-28 | XR_ITS ---
XR KNEE MOISES 3V HISTORY: Knee pain. COMPARISON: None. TECHNIQUE: AP view bilateral knees standing, lateral and patellofemoral views bilateral knees. FINDINGS: RIGHT KNEE: No fracture, dislocation, or suspicious bone lesion. There is mild to moderate medial compartment, and mild lateral and patellofemoral compartment osteoarthrosis present. Mild spurring of the tibial spines. Normal patellar alignment. No abnormal patellar tilt. No evidence of joint effusion. Normal-appearing soft tissues. LEFT KNEE: No fracture, dislocation, or suspicious bone lesion. There is mild to moderate medial compartment, and mild lateral and patellofemoral compartment osteoarthrosis present. Mild spurring of the tibial spines. Normal patellar alignment. No abnormal patellar tilt. No evidence of joint effusion. Mild prepatellar soft tissue swelling. XR/XR Knee Moises 3V IMPRESSION: LEFT KNEE: 1. Mild to moderate medial compartment, and mild lateral and patellofemoral compartment osteoarthrosis. 2. Mild prepatellar soft tissue swelling. 3. No significant joint effusion. RIGHT KNEE: 1. Mild to moderate medial compartment, and mild lateral and patellofemoral compartment osteoarthrosis. 2. Normal soft tissues. 3. No significant joint effusion. Electronically signed by: Elmo Maldonado MD 08/31/2024 08:17 AM EDT
== END 2024-08-28 13:29 | disposition home or self-care (01) ==
LOC: HO.HOSX 13:28
PROVIDERS: Visit Provider Physician Assistant
DX: M17.0 Bilateral primary osteoarthritis of knee (principal)
CPT/HCPCS: 20610; 73562; 99202; J1010; J2003

== ENCOUNTER → 2024-08-28 13:29 | Outpatient (BNV) | payer MEDICARE, OTHER, SELFPAY | PROVIDERS: Visit Provider Radiology Diagnostic Radiology | DX: M17.0 Bilateral primary osteoarthritis of knee (principal) | CPT/HCPCS: 73562 ==

== ENCOUNTER 2024-09-01 08:49 | Outpatient (REF) | payer MEDICARE, OTHER, SELFPAY ==
--- OUTSIDE RECORDS SUMMARY | 2024-09-02 08:52 | XMS_ITS | Clinical Summary ---
Author Organization [facility] Address [address] [place] [address] Care Team Providers Care Plant Protection Guard Name Role Phone Shirley Borjas MD Primary [...] DENSITY SCREENING 12/24/2023 12/23/2021, 2015 Covid-19 Vaccine ( - 2022-2 4 season) 2024 08/25/2021, 03/12/2021, 07/31/2020, Additional history exists BMI CHECK/ADVISE 05/03/2024 INFLUENZA (Season Ended) 2025 02/24/2017 DTAP/TDAP/TD (3 - Td or Tdap) 11/05/2032 11/05/2022, 11/09/2012 SHINGLES VACCINE Completed 12/06/2018, 08/2018, 08/31/2018, Additional history exists Care Teams Plant Protection Guard Relationship Specialty Start Date End Date Shirley Borjas MD PCP - General Internal Medicine 12/22/21
--- OUTSIDE RECORDS SUMMARY | 2024-09-02 08:52 | XMS_ITS | Encounter Summary ---
Author Organization [facility] Address [address] [place] [address] Care Team Providers Care Food Service Driver Name Role Phone Shirley Borjas MD Primary Care Provider Donald ward Encounter Details Date Type Department Care Team Description 12/18/2022 Business Doc Medical Records [address] [place] [id number] Abstract, Provider Social History Tobacco Use Types [...] on filedocumented in this encounter Care Teams Food Service Driver Relationship Specialty Start Date End Date Shirley Borjas MD PCP - General Internal Medicine 12/22/21 documented as of this encounter
--- OUTSIDE RECORDS SUMMARY | 2024-09-02 08:52 | XMS_ITS | Encounter Summary ---
Author Organization [facility] Address [address] [place] [address] Care Team Providers Care Grinder Gear Name Role Phone Aroldo Rojo Primary Care Provider Josiea Shirley Servin MD Primary Care Provider Donald ward Encounter Details Date Type Department Care Team Description 12/01/2004 SCAN Medical Records [address] [place] [id number] Abstract, Provider Social History Tobacco Use Types Packs/Day Years Used Date Smoking Tobacco: Never Assessed Sex Assigned at Date Recorded Not on file Job Start Date Occupation Industry Not on file Not on file Not on file documented as of this encounter Plan of Treatment Not on file documented as of this encounter Procedures Procedure Name Priority Date/Time Associated Diagnosis Comments OUTSIDE STRESS ECHO Routine 12/01/2004 documented in this encounter Results * OUTSIDE STRESS ECHO (12/01/2004) Provider Default CARDIOLOGY documented in this encounter Visit Diagnoses Not on filedocumented in this encounter Care Teams Grinder Gear Relationship Specialty Start Date End Date Aroldo Rojo PCP - General 07/15/08 12/21/21 Shirley Borjas MD PCP - General Internal Medicine 12/22/21 documented as of this encounter
--- OUTSIDE RECORDS SUMMARY | 2024-09-02 08:52 | XMS_ITS | Encounter Summary ---
Author Organization [facility] Address [address] [place] [address] Care Team Providers Care Machine Assembler Supervisor Name Role Phone Aroldo Rojo Primary Care Provider Shirley Gilliland MD Primary Care Provider Donald ward Encounter Details Date Type Department Care Team Description 07/21/2010 SCAN Medical Records [address] [place] [id number] Antonio Thompson MD Social History Tobacco Use [...] on filedocumented in this encounter Care Teams Machine Assembler Supervisor Relationship Specialty Start Date End Date Aroldo Rojo PCP - General 07/15/08 12/21/21 Shirley Borjas MD PCP - General Internal Medicine 12/22/21 documented as of this encounter
--- OUTSIDE RECORDS SUMMARY | 2024-09-02 08:52 | XMS_ITS | Encounter Summary ---
Author Organization [facility] Address [address] [place] [address] Care Team Providers Care Market Investigator Name Role Phone Aroldo Rojo Primary Care Provider Shirley Gilliland MD Primary Care Provider Donald ward Encounter Details Date Type Department Care Team Description 12/12/2013 SCAN Medical Records [address] [place] [address] Abstract, Provider Social History Tobacco Use Types [...] on filedocumented in this encounter Care Teams Market Investigator Relationship Specialty Start Date End Date Aroldo Rojo PCP - General 07/15/08 12/21/21 Shirley Borjas MD PCP - General Internal Medicine 12/22/21 documented as of this encounter
--- OUTSIDE RECORDS SUMMARY | 2024-09-02 08:52 | XMS_ITS | Encounter Summary ---
Author Organization [facility] Address [address] [place] [address] Care Team Providers Care Educational Advisor Name Role Phone Aroldo Rojo Primary Care Provider Shirley Gilliland MD Primary Care Provider Donald ward Encounter Details Date Type Department Care Team Description 01/26/2019 SCAN Medical Records [address] [place] [id number] Lisa Chakraborty MD Social History Tobacco Use [...] on filedocumented in this encounter Care Teams Educational Advisor Relationship Specialty Start Date End Date Aroldo Rojo PCP - General 07/15/08 12/21/21 Shirley Borjas MD PCP - General Internal Medicine 12/22/21 documented as of this encounter
--- OUTSIDE RECORDS SUMMARY | 2024-09-02 08:52 | XMS_ITS | Encounter Summary ---
Author Organization [facility] Address [address] [place] [address] Care Team Providers Care Drug Coordinator Name Role Phone Aroldo Rojo Primary Care Provider Shirley Gilliland MD Primary Care Provider Donald ward Encounter Details Date Type Department Care Team Description 12/13/2015 SCAN Medical Records [address] [place] [address] Abstract, Provider Social History Tobacco Use Types [...] Associated Diagnosis Comments OUTSIDE VASCULAR STUDY Routine 12/13/2015 documented in this encounter Results * OUTSIDE VASCULAR STUDY (12/13/2015) Provider Default CARDIOLOGY documented in this encounter Visit Diagnoses Not on filedocumented in this encounter Care Teams Drug Coordinator Relationship Specialty Start Date End Date Aroldo Rojo PCP - General 07/15/08 12/21/21 Shirley Borjas MD PCP - General Internal Medicine 12/22/21 documented as of this encounter
--- OUTSIDE RECORDS SUMMARY | 2024-09-02 08:52 | XMS_ITS | Encounter Summary ---
Author Organization [facility] Address [address] [place] [address] Care Team Providers Care Neurodiagnostic Technician Name Role Phone Aroldo Rojo Primary Care Provider Shirley Gilliland MD Primary Care Provider Donald ward Encounter Details Date Type Department Care Team Description 09/02/2017 Business Doc Medical Records [address] [place] [address] Abstract, Provider Social History Tobacco Use Types [...] on filedocumented in this encounter Care Teams Neurodiagnostic Technician Relationship Specialty Start Date End Date Aroldo Rojo PCP - General 07/15/08 12/21/21 Shirley Borjas MD PCP - General Internal Medicine 12/22/21 documented as of this encounter
--- OUTSIDE RECORDS SUMMARY | 2024-09-02 08:53 | XMS_ITS | Encounter Summary ---
Author Organization [facility] Address [address] [place] [address] Care Team Providers Care Teacher Early Childhood Development Name Role Phone Aroldo Rojo Primary Care Provider Josiea Shirley Servin MD Primary Care Provider Donald ward Encounter Details Date Type Department Care Team Description 01/25/2002 SCAN Medical Records [address] [place] [id number] Abstract, Provider Social History Tobacco Use Types [...] Associated Diagnosis Comments OUTSIDE STRESS ECHO Routine 01/25/2002 documented in this encounter Results * OUTSIDE STRESS ECHO (01/25/2002) Provider Default CARDIOLOGY documented in this encounter Visit Diagnoses Not on filedocumented in this encounter Care Teams Teacher Early Childhood Development Relationship Specialty Start Date End Date Aroldo Rojo PCP - General 07/15/08 12/21/21 Shirley Borjas MD PCP - General Internal Medicine 12/22/21 documented as of this encounter
--- OUTSIDE RECORDS SUMMARY | 2024-09-02 08:53 | XMS_ITS | Encounter Summary ---
Author Organization [facility] Address [address] [place] [address] Care Team Providers Care Central Office Operator Name Role Phone Shirley Borjas MD Primary Care Provider Donald ward Encounter Details Date Type Department Care Team Description 05/11/2022 Yacht Hand Report Medical Records [address] [place] [address] Deanna Burks PA-C Social History Tobacco Use [...] filedocumented in this encounter Care Teams Central Office Operator Relationship Specialty Start Date End Date Shirley Borjas MD PCP - General Internal Medicine 12/22/21 documented as of this encounter
--- OUTSIDE RECORDS SUMMARY | 2024-09-02 08:53 | XMS_ITS | Data Portability ---
Author Organization [place] - [facility],, RADHA SKINNER MD Address [address] [address] Assessment No assessment recorded. Plan of Treatment Reminders Order Date Submit Date Provider Last Modified By Organization Details Last Modified Time Details Appointments None recorded. Lab pap test, thinprep, cervical 2022 023 [facility] (Centralized Electronic Ordering - All Locations), Patient Can Go To The Location Of Their Choice, [id number] 3 07:37:29 pap test, thinprep, cervical 2020 021 [facility], Cytopathology Service, [address] [place], [address], 1 07:39:17 pap test, thinprep, cervical 2018 019 [facility], Cytopathology Service, [address] [place], [address], 9 07:35:32 pap test, thinprep, cervical 2016 017 [facility], Cytopathology Service, [address] [place], [address], 7 13:45:59 vitamin D, 25-hydrox y, total, serum 2015 016 [id number] [facility], [address] [place], [address], 6 04:20:30 Referral None recorded. Procedures None recorded. Surgeries None recorded. Imaging MAMMO, screening , digital, bilateral - Breast Aspiratio n and/or Biopsy if needed 2022 023 [facility] ([facility]), [address] [place] [address], [address], 3 09:26:31 bone density 2022 023 [facility], [address] [place] [address], [address], 5 07:44:16 MAMMO, screening , digital, bilateral 2020 021 [facility], [address] [place] [address], [address], 1 18:06:43 bone density 2020 021 [facility], [address] [place] [address], [address], 2 08:44:20 MAMMO, screening , digital, bilateral 2018 019 [facility], [address] [place] [address], [address], 0 07:31:31 bone density 2018 019 [facility], [address] [place] [address], [address], 0 07:54:53 MAMMO, screening , digital, bilateral 2016 017 [facility] ([facility]), [address] [place] [address], [address], 8 12:02:10 Medication Orders None recorded. Patient TargetsNo targets recorded. Patient Instructions Encounter Date Encounter Id Patient Instructions Last Modified By Organization Details Last Modified Time 12/11/2015 [id number] She is here for discussion of her [...] 25 minutes. Not available 12/11/2015 10:13:27 11/11/2016 [id number] advance directiv es: care instructions [email or web address] Not [...] questions answered. Not available 11/11/2016 08:39:22 11/15/2018 [id number] atrophic vaginit is: care instructions Not available [...] questions answered. Not available 11/15/2018 11:02:15 11/21/2020 [id number] atrophic vaginit is: care instructions Not available [...] the breast. Not available 11/21/2020 08:59:29 12/10/2022 [id number] atrophic vaginit is: care instructions Not available [...] DO Not Attach Compendium, Do Not Delete/merge, [id number] 11/12/2015 08:23:55 11/12/19 16 11/12/2015 pap, LB [id number] ThinP rep Pap, Image d: NEGAT THOYN FOR SQUAM OUS INTRA EPITH ELIAL LESIO [...] . menop ause, lps neg Not Available [facility], Cytopathology Service [address] [place], [address], 11/13/2015 15:18:53 12/11/19 16 12/11/2015 vitam in D, 25-hy droxy , total , serum comments [facility] [address] [facility] [place] [address] [phone] Not Available [facility] [address] [place], [address], 12/12/2015 04:21:54 12/11/19 16 12/11/2015 vitam in D, 25-hy droxy , total , serum vitamin D, 25-hydroxy 30 NG/mL 30-80 Vitam in D Refer ence Range s Defic iency : <20 ng/mL Insuf ficie ncy: 20-29 ng/mL Optim al: 30-80 ng/mL High: >80 ng/mL Not Available [facility] [address] [place], [address], 12/12/2015 04:21:54 11/12/19 17 11/11/2016 pap, LB [id number] ThinP rep Pap, Image d: NEGAT THONY [...] ASCUS . LPS neg. z12.4 Not Available [facility], Cytopathology Service [address] [place], [address], 11/12/2016 13:45:59 11/16/19 19 11/15/2018 pap, LB [id number] ThinP rep Pap, Image d: NEGAT THONY [...] MENOP AUSE, LPS = NEG Not Available [facility], Cytopathology Service [address] [place], [address], 11/17/2018 14:20:42 11/22/19 21 11/21/2020 PAP1C ASE [id number] ThinP rep Pap, Image d: NEGAT THONY [...] ASCUS . Lps neg, Z12.4 Not Available [facility] Cytopathology Service [address] [place], [address], 11/25/2020 11:00:41 12/11/19 23 12/10/2022 [facility]GY results Patie nt Name: AJ MINOR HEN Fabian nt : 1950 (Age: 72) Lab Acces gabo #: [id number] Colle ction Date: 2022 Acces gabo Date: 2022 Sign Out Date: 2022 Tissu e Sour e: 1: THINP REP GEOSPATIAL IMAGERY INTELLIGENCE ANALYST PAP TEST, CERVI OLVIN: Final Diagn osis: [...] pearce or vaughn roberts. Perfo rmed at [facility] ate Refer ence Labor atory depar tment of Cytol ogy, [address] [place] hung [place] Clini olvin Histo ry (othe r): Z12.4 , LPS 11/21 NEG, ROUTI NE SCREE N Phone #: [phone], On-Ca ll Patho logis t: [id number] Not Available [facility] (Centralized Electronic Ordering - All Locations) Patient Can Go To The Location Of Their Choice, [address] 12/14/2022 11:16:37 11/20/19 16 11/19/2015 bone densi ty No observ ation record ed. [email or web address] Not Available 2015 11:40:45 08/19/19 17 08/18/2016 MAMMO , scree brina, digit al, bilat eral No observ ation record ed. Not Available 08/01 16:22:36 09/02/19 18 08/31/2017 MAMMO , scree brina, digit al, bilat eral No observ ation record ed. [facility] ([facility]) [address] [place], [address], 09/02/2017 09:29:55 09/08/19 19 09/07/2018 MAMMO , scree brina, digit al, bilat eral No observ ation record ed. [email or web address] Not Available 2018 09:09:02 09/09/19 19 09/07/2018 MAMMO , scree brina, digit al, bilat eral No observ ation record ed. [facility] ([facility]) [address] [place], [address], 09/08/2018 08:48:23 11/29/19 20 11/28/2019 MAMMO , scree brina, digit al, bilat eral No observ ation record ed. Not Available 11/02 08:12:57 12/03/19 21 12/02/2020 MAMMO , scree brina, digit al, bilat eral No observ ation record ed. Not Available 07/2020 08:13:17 12/04/19 21 12/02/2020 MAMMO , scree brina, digit al, bilat eral No observ ation record ed. [facility] [address] , [place], [address], 12/03/2020 14:32:15 12/11/19 22 12/10/2021 MAMMO , scree brina, digit al, bilat eral No observ ation record ed. [address] ([facility]) [address] [place], [address], 12/10/2021 12:13:04 12/18/19 23 12/17/2022 MAMMO , scree brina, digit al, bilat eral No observ ation record ed. [email or web address] [facility] ([facility]) [address] [place], [address], 12/28/2022 10:55:21 12/29/19 23 12/17/2022 MAMMO , scree brina, digit al, bilat eral No observ ation record ed. [address] ([facility]) [address] [place], [address], 12/28/2022 09:39:32 Result Notes None recorded. Problems Name Problem SNOMED Code Status Onset Date Resolution Date Notes Provider Name and Address Organization Details Recorded Time Vitamin D deficiency 15088089 Active 2009 Radha Skinner MD [address] [facility],[address], [place], [address] , [place] - [facility], 6 10:13:44 Benign essential hypertension 9683921 Active Not Available [facility] 3 03:01:07 Problem Notes None recorded. Procedures Surgical History Date Name Laterality Status Provider Name and Address Organization Details Recorded Time 12/11/19 22 Most Recent Mammogram completed Jayne Black [place] - [facility], 12/10/2022 08:15:20 06/03/19 13 Rep dev, urinary, w/sling completed Radha Skinner MD [address], [place], [address], [place] - [facility], 11/08/2013 08:25:57 05/03/18 72 Tonsillectomy completed Stacey Damico in [facility], 11/07/2012 14:14:42 05/03/18 52 Oophorectomy completed Stacey Damico in [facility], 11/07/2012 14:14:42 Imaging Results Imaging Date Name Status LastModified by Organiz ation Details LastModified Time 11/19/2015 bone density completed fermin Information not available 11/20/2015 11:40:45 08/18/2016 MAMMO, screening, digital, bilateral completed Information not available 08/18/2016 16:22:36 08/31/2017 MAMMO, screening, digital, bilateral completed [facility] ([facility]) [address] [place], [address], 09/02/2017 09:29:55 09/07/2018 MAMMO, screening, digital, bilateral completed [email or web address] Information not available 09/08/2018 09:09:02 09/07/2018 MAMMO, screening, digital, bilateral completed [facility] ([facility]) [address] [place], [address], 09/08/2018 08:48:23 11/28/2019 MAMMO, screening, digital, bilateral completed Information not available 11/30/2019 08:12:57 12/02/2020 MAMMO, screening, digital, bilateral completed Information not available 12/03/2020 08:13:17 12/02/2020 MAMMO, screening, digital, bilateral completed [facility] [address] [place], [address], 12/03/2020 14:32:15 12/10/2021 MAMMO, screening, digital, bilateral completed [facility] ([facility]) [address] [place], [address], 12/10/2021 12:13:04 12/17/2022 MAMMO, screening, digital, bilateral completed [email or web address] [facility] ([facility]) [address] [place], [address], 12/28/2022 10:55:21 12/17/2022 MAMMO, screening, digital, bilateral completed [email or web address] [facility] ([facility]) [address] [place], [address], 12/28/2022 09:39:32 Procedure Notes None recorded. Medical Equipment None Reported. Allergies Allergen ID Allergen Name Allergen Category Reaction Reaction Severity Criticality Documentation Date Start Date Code Code System Note Provider Name and Address Organization Details Recorded Time 7513 Zithromax medicatio n nausea Not available Not available 11/07/2012 4 RxNorm hira rgic Stacey reyna [place] - [facility], 3 14:14:43 Medications Name Sig [...] Available Not Available N ot Available Afluria [id number] (PF) 45 mcg(15 mcg x 3)/0.5 mL [...] Address Organization Details Last Updated DateTime 9 22215.4 2 g 27.9 kg/m2 166.37 cm 67 /min 137 mm[Hg] 57 mm[Hg] Stacey Burt [place] - [facility], 9 08:09:40 Date Recorded Body height Body mass index (BMI) Body weight Heart rate Systolic blood pressure Diastolic blood pressure Provider Name and Address Organization Details Last Updated DateTime 1 166.37 cm 29.2 kg/m2 51517.4 4 g 70 /min 132 mm[Hg] 60 mm[Hg] Jayne Damico in [facility], 1 08:50:12 Date Recorded Body weight Body mass index (BMI) Body height Provider Name and Address Organization Details Last Updated DateTime 12/10/2022 02424.66 g 28.7 kg/m2 166.37 cm Jayne Damico in [facility], 12/10/2022 08:04:13 Date Recorded Body height Body weight Body mass index (BMI) Heart rate Systolic blood pressure Diastolic blood pressure Provider Name and Address Organization Details Last Updated DateTime 6 166.37 cm 05417.1 3 g 29 kg/m2 70 /min 136 mm[Hg] 69 mm[Hg] Stacey Damico in [facility], 6 09:13:43 Date Recorded Body height Body mass index (BMI) Body weight Heart rate Systolic blood pressure Diastolic blood pressure Provider Name and Address Organization Details Last Updated DateTime 7 166.37 cm 28.2 kg/m2 73052.1 7 g 66 /min 141 mm[Hg] 68 mm[Hg] Stacey Damico in [facility], 7 08:15:47 Social History Question Answer Notes LastModified by Organizat ion Details LastModified Time Tobacco Smoking Status Former Smoker Not Available [facility] 03/05/2020 03:19:39 Do You Have An Advance Directive? No Information not available 11/21/2020 What Is Your Level Of Alcohol Consumption? Occasional [id number] Information not available 03/05/2020 Are You Blind Or Do You Have Difficulty Seeing? No [id number] Information not available 03/05/2020 Is Blood Transfusion Acceptable In An Emergency? No Information not available 11/21/2020 What Is Your Level Of Caffeine Consumption? Moderate Information not available 12/10/2022 In The 14 Days Before Symptom Onset, Have You Had [facility] While That Case Was Ill? No [...] Do You Have Serious Difficulty Hearing? No [id number] Information not available 03/05/2020 What Type Of Diet Are You Following? REGULAR [id number] Information not available 03/05/2020 Which Illicit Or Recreational Drugs Have You Used? No [id number] Information not available 03/05/2020 Do You Reside In Or Have You Traveled To An Area Where Ebola Virus Transmission Is Active? No [id number] Information not available 03/05/2020 Education Post Graduate Information not available 11/07/2012 What Is The Highest Grade Or Level Of School You Have Completed Or The Highest Degree You Have Received? 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 Yes [id number] Information not available 03/05/2020 Do You Have Smoke And Carbon Monoxide Detectors In Your Home? Yes Information not available 11/21/2020 How Much Tobacco Do You Smoke? No [id number] Information not available 03/05/2020 General Stress Level Low Information not available 11/15/2018 Do You Use Any Illicit Or Recreational Drugs? No Information not available 11/21/2020 Do You Use Sunscreen Routinely? Yes Information not available 11/21/2020 How Many Years Have You Smoked Tobacco? 1 [id number] Information not available 03/05/2020 Have You Recently [...] have difficulty walking or climbing stairs? No [id number] Information not available 03/05/2020 Do you have difficulty doing errands alone? No [id number] Information not available 03/05/2020 Do you have difficulty dressing or bathing? No [id number] Information not available 03/05/2020 What is your exercise level? Heavy [id number] Information not available 03/05/2020 Mental Status Question Answer Note LastModified by Organization D etails LastModified Time Do you have difficulty concentrating, remembering or making decisions? No [id number] Information no t available 03/05/2020 Family History [...] for MyRisk panel N Autoimmune Condition N Lung Disease N Depression N Defects or Inherited Disease N History of Ovarian Cancer N BRCA testing in past N Anxiety Disorder N Arthritis Y Infertility N History of Cancer N Endometriosis N Thyroid Problems N Kidney or Bladder Problems Y GI Problems N Anemia N History of [...] Stacey Mecshaniwor maribell [place] - [facility], 11/09/2014 08:11:37 Hep A, adult 4 completed Stacey Meczywor null, [place] - [facility], 11/09/2014 08:11:37 typhoid, oral 3 completed Stacey Meczywor maribell [place] - [facility], 11/09/2014 08:11:37 Tdap 3 completed Stacey Meczywor null, [place] - [facility], 11/09/2014 08:11:37 Influenza, split virus, quadrivalent, preservative 5 completed Stacey Meczywor null, [place] - [facility], 11/12/2015 08:17:10 pneumococcal, unspecified formulation 5 completed Stacey Meczywor null [place] - [facility], 11/12/2015 08:17:55 zoster live 5 completed Stacey Meczywor null [place] - [facility], 11/12/2015 08:18:21 zoster live 9 completed Stacey Mecnamita reyna [place] - [facility], 11/15/2018 08:12:22 Influenza, split virus, quadrivalent, preservative 8 completed Stacey Meczywor null, [place] - [facility], 11/15/2018 08:12:47 zoster recombinant 9 completed Stacey Meczywor null, [place] [facility], 12/10/2022 08:03:56 zoster recombinant 9 completed Stacey Meczywor null, [place] - [facility], 12/10/2022 08:03:56 Influenza, high-dose, quadrivalent, PF 2 completed Stacey Meczywor null, [place] - [facility], 12/10/2022 08:03:56 COVID-19, mRNA, LNP-S, PF, 100 mcg/0.5mL dose or 50 mcg/0.25mL dose 1 completed Stacey Meczywor null, [place] - [facility], 12/10/2022 08:03:57 COVID-19, mRNA, LNP-S, PF, 100 mcg/0.5mL dose or 50 mcg/0.25mL dose 1 completed Stacey Meczywor null, [place] - [facility], 12/10/2022 08:03:57 COVID-19, mRNA, LNP-S, PF, 100 mcg/0.5mL dose or 50 mcg/0.25mL dose 2 completed Stacey Meczywor null, [place] - [facility], 12/10/2022 08:03:57 COVID-19, mRNA, LNP-S, PF, 100 mcg/0.5mL dose or 50 mcg/0.25mL dose 1 completed Stacey Meczywor null, [place] - [facility], 12/10/2022 08:03:57 Pneumococcal conjugate PCV20, polysaccharide [id number] conjugate, adjuvant, PF 3 completed Stacey Meczywor null, [place] - [facility], 12/10/2022 08:03:57 COVID-19, mRNA, LNP-S, bivalent, PF, 50 mcg/0.5 mL or 25mcg/0.25 mL dose 2 completed Stacey Meczywor null, [place] - [facility], 12/10/2022 08:03:57 influenza, unspecified formulation 2 completed Stacey Meczywor null, [place] - [facility], 12/10/2022 08:03:57 Tdap 3 completed Stacey Meczywor null, [place] - [facility], 12/10/2022 08:03:57 Influenza, split virus, trivalent, preservative 1 completed Stacey Meczywor null, [place] - [facility], 12/10/2022 08:03:57 Influenza, split virus, trivalent, PF 7 completed Stacey Meczywor null, [place] - [facility], 12/10/2022 08:03:57 Past Encounters Encounter ID Performer Location Encounter Start Date Encounter Closed Date Diagnosis/Indication Diagnosis SNOMED-CT Code Diagnosis ICD10 Code Diagnosis Note [id number] MD RADHA Sorensen MD [address] [place] [address], [address] [place] [address] 11/07/2012 13:42:33 11/07/2012 16:26:55 [id number] MD RADHA Sorensen MD [address] [place] [address], [address] [place] [address] 11/08/2013 08:01:42 11/08/2013 10:52:29 Specialized medical examination 99839166 Screening for malignant neoplasm of rectum 101876906 Screening mammography 27654885 [id number] MD RADHA Sorensen MD [address] [place] [address], [address] [place] [address] 11/09/2014 07:56:07 11/09/2014 12:57:19 Specialized medical examination 72258627 Screening for malignant neoplasm of rectum 989532854 Screening mammography 76503440 [id number] MD RADHA Sorensen MD [address] [place] [address] [address] 11/12/2015 08:08:55 11/12/2015 11:13:43 Specialized medical examination 34923459 Z01.419 Screening for malignant neoplasm of rectum 701155212 Z12.12 Screening mammography 24 732822 Z12.31 Menopausal syndrome 1237 37583 N95.9 [id number] MD RADHA Sorensen MD [address] [place], [place] [address] [address] 12/11/2015 09:02:33 12/11/2015 10:53:48 Osteopenia 347421175 M85.852 Vitamin D deficiency 347 23614 E55.9 [id number] MD RADHA Sorensen MD [address] [place], [place] [address] [address] 11/11/2016 07:58:55 11/11/2016 09:52:37 Screening for malignant neoplasm of cervix 319931115 Z12.4 Screening mammography 24 839376 Z12.31 Cares for self 857459198 Z76.89 [id number] MD RADHA Sorensen MD [address] [place], [place] [address] [address] 11/15/2018 07:55:22 11/15/2018 11:17:51 Screening for malignant neoplasm of cervix 340821417 Z12.4 Screening mammography 24 137556 Z12.31 Screening for osteoporosis 161351151 Z13.820 [id number] MD RADHA Sorensen MD [address] [place] [address] [place] [address] 11/21/2020 08:18:49 11/21/2020 10:40:27 Screening for malignant neoplasm of cervix 822465066 Z12.4 Screening mammography 24 046786 Z12.31 Screening for osteoporosis 664362515 N95.8 [id number] MD RADHA Sorensen MD [address] [place], [place] [address] [address] 12/10/2022 08:01:35 12/10/2022 09:31:36 Screening for malignant neoplasm of cervix 528398786 Z12.4 Screening mammography 24 129197 Z12.31 Screening for osteoporosis 416041208 N95.8 Health Concerns Section Related Observation LastModified by Organization Detai ls LastModified Time None Recorded Concern Status LastModified by Organization Details LastModified Time None Recorded Advance Directives Directive N: Payers Encounter Date Sequence Insurance Name Policy Number Policy Guajardo Covered Member ID Guajardo Member ID Guarantor Name 12/11/2015 1 [employer] - GIC (INDEMNITY) [id number] Jessica Schwamb [id number] Jessica Schwamb 11/11/2016 2 [employer] - SENIOR SERVICES PLAN F (MEDICARE SUPPLEMENT) [id number] Jessica Schwamb [id number] Jessica Schwamb 11/11/2016 1 [place] Jessica W Schwamb [id number] Jessica Schwamb 11/15/2018 2 [employer] - SENIOR SERVICES PLAN F (MEDICARE SUPPLEMENT) [id number] Jessica Schwamb [id number] Jessica Schwamb 11/15/2018 1 [place] Jessica W Schwamb [id number] Jessica Schwamb 11/21/2020 2 [employer] - SENIOR SERVICES PLAN F (MEDICARE SUPPLEMENT) [id number] Jessica Schwamb [id number] Jessica Schwamb 11/21/2020 1 [place] Jessica W Schwamb [id number] Jessica Schwamb 12/10/2022 2 [employer] - SENIOR SERVICES PLAN F (MEDICARE SUPPLEMENT) [id number] Jessica Schwamb [id number] Jessica Schwamb 12/10/2022 1 [place] Jessica W Schwamb [id number] Jessica Schwamb Notes Date Note Type Note Provider Name and Address Organization Details Recorded Time 12/11/2015 text/html She is here for discussion of her recent bone density which showed osteopenia with a T score of -1.2 in the left hip. Radha Skinner MD [address], [place], [address], [place] - [facility], 12/11/2015 10:14:12 11/11/2016 text/html She is here for annual exam, is doing well. Bone density of -1.2 last year. Radha Skinner MD [address], [place], [address], [place] - [facility], 11/11/2016 09:55:19 11/15/2018 text/html She is here for annual exam, is doing well. Her Azam is her health care proxy. Radha Skinner MD [address], [place], [address], [place] - [facility], 11/15/2018 11:02:34 11/21/2020 text/html She is here for annual exam, is doing well. Her Azam is her health care proxy. Radha Skinner MD [address], [place], [address], [place] - [facility], 11/21/2020 08:59:56 12/10/2022 text/html She is here for annual exam, is doing well. Her Azam is her health care proxy. Radha Skinner MD [address], [place], [address], [place] - [facility], 12/10/2022 09:07:05 OBGyn Episode No OBEpisode recorded.
--- OUTSIDE RECORDS SUMMARY | 2024-09-02 08:53 | XMS_ITS | Encounter Summary ---
Author Organization [facility] Address [address] [place] [address] Care Team Providers Care Bilingual Medical Receptionist Name Role Phone Shirley Borjas MD Primary Care Provider Donald ward Encounter Details Date Type Department Care Team Description 05/16/2022 SCAN Medical Records [address] [place] [address] Abstract, Provider Social History Tobacco Use Types [...] Date/Time Associated Diagnosis Comments OUTSIDE ECHO Routine 05/16/2022 documented in this encounter Results * OUTSIDE ECHO (05/16/2022) Provider Default CARDIOLOGY documented in this encounter Visit Diagnoses Not on filedocumented in this encounter Care Teams Bilingual Medical Receptionist Relationship Specialty Start Date End Date Shirley Borjas MD PCP - General Internal Medicine 12/22/21 documented as of this encounter
== END 2024-09-01 08:50 | disposition home or self-care (01) ==
LOC: HO.HOSX 08:49
PROVIDERS: Visit Provider Physician Assistant
DX: Z13.89 Encounter for screening for other disorder (principal)

== ENCOUNTER 2024-09-14 09:28 | Outpatient (AMB) | payer MEDICARE, OTHER, SELFPAY ==
--- NOTE | 2024-09-14 09:38 | MHC.OFFVIS ---
Vital Signs 09/14/24 09:48 Height 5 ft 5 in Weight 181 lb BMI 30.1 Handedness Right Intake Visit Reasons: New prob- Left shoulder pain Intake Note: Jessica is a 74 year old right hand dominant female who presents today for a evaluation of her left shoulder pain. Patient reports off and on pain for a couple months. She mentions that her pain is on the anterior aspect of the shoulder. 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 She mentions that her pain is worse when she is laying down or juts applying pressure. Allergies zpack Allergy (Severe, Uncoded 08/28/24 13:42) Diarrhea HPI HPI New prob- Left shoulder pain: Details: Ms. Epperson is a very active 74-year-old right-hand dominant female who presents to the office today for evaluation of left shoulder pain and limited range of motion. She reports that the pain waxes and wanes and is located over the anterior aspect of the shoulder. She is an avid swimmer and after performing a few laps in the pool she begins to have an increase in pain. Over the time while in the pool she does have a decrease in pain after continuation of motion. Pain is worse when she is lying on her left side. She denies any injury or trauma to the area. 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 Minimal external rotation. Able to reach T12. NVI. Assessment & Plan Assessment & Plan (1) Osteoarthritis of left shoulder: Code(s): M19.012 - Primary osteoarthritis, left shoulder Category: Medical Plan Ms. Epperson is a very active 74-year-old right-hand dominant female who presents to the office today for evaluation of left shoulder pain and limited range of motion. She reports that the pain waxes and wanes and is located over the anterior aspect of the shoulder. She is an avid swimmer and after performing a few laps in the pool she begins to have an increase in pain. Over the time while in the pool she does have a decrease in pain after continuation of motion. Pain is worse when she is lying on her left side. She denies any injury or trauma to the area. While in the office today, we discussed the role of cortisone injection as well as physical therapy. We deferred on cortisone injection at this time as the patient is not experiencing a great deal of pain. However due to her level of activity she would like to maximize the amount of range of motion she does have. A physical therapy order has been placed in the office today. She will follow up PRN, sooner if needed. X-rays of the left shoulder which were obtained while in the office today and were reviewed by me, Stephanie Estevez PA-C, revealed severe osteoarthritis. Orders: Orders XR shoulder LT min 2V Today M25.519 - Pain in unspecified shoulder PT Evaluation and Treatment Today M19.012 - Primary osteoarthritis, left shoulder Coding Level of Care Code Est Pt Level 3 (87021) Diagnoses Osteoarthritis of left shoulder M19.012
[2024-09-14 09:48] VITALS: BMI 30.1
--- OUTSIDE RECORDS SUMMARY | 2024-09-14 10:14 | XMS_ITS | Data Portability ---
Author Organization [place] - [facility],, RADHA SKINNER MD Address [address] [address] Assessment No assessment recorded. Plan of Treatment Reminders Order Date Submit Date Provider Last Modified By Organization Details Last Modified Time Details Appointments None recorded. Lab pap test, thinprep, cervical 2022 023 [facility] (Centralized Electronic Ordering - All Locations), Patient Can Go To The Location Of Their Choice, [id number] 3 07:37:29 pap test, thinprep, cervical 2020 021 [facility], Cytopathology Service, [address] [place], [address], 1 07:39:17 pap test, thinprep, cervical 2018 019 [facility], Cytopathology Service, [address] [place], [address], 9 07:35:32 pap test, thinprep, cervical 2016 017 [facility], Cytopathology [facility], [address] [place], [address], 7 13:45:59 vitamin D, 25-hydrox y, total, serum 2015 016 [id number] [facility], [address] [place], [address], 6 04:20:30 Referral None recorded. Procedures None recorded. Surgeries None recorded. Imaging MAMMO, screening , digital, bilateral - Breast Aspiratio n and/or Biopsy if needed 2022 023 [facility] ([facility]), [address] [place] [address], [address], 3 09:26:31 bone density 2022 023 [facility], [address] [place] [address], [address], 5 07:44:16 MAMMO, screening , digital, bilateral 2020 021 [facility], [address] [place] [address], [address], 1 18:06:43 bone density 2020 021 [facility], [address] [place] [address], [address], 2 08:44:20 MAMMO, screening , digital, bilateral 2018 019 [facility], [address] [place] [address], [address], 0 07:31:31 bone density 2018 019 [facility], [address] [place] [address], [address], 0 07:54:53 MAMMO, screening , digital, bilateral 2016 017 [facility] ([facility]), [address] [place] [address], [address], 8 12:02:10 Medication Orders None recorded. Patient TargetsNo targets recorded. Patient Instructions Encounter Date Encounter Id Patient Instructions Last Modified By Organization Details Last Modified Time 12/11/2015 [id number] She is here for discussion of her [...] 25 minutes. Not available 12/11/2015 10:13:27 11/11/2016 [id number] advance directiv es: care instructions [email or web address] Not [...] questions answered. Not available 11/11/2016 08:39:22 11/15/2018 [id number] atrophic vaginit is: care instructions Not available [...] questions answered. Not available 11/15/2018 11:02:15 11/21/2020 [id number] atrophic vaginit is: care instructions Not available [...] the breast. Not available 11/21/2020 08:59:29 12/10/2022 [id number] atrophic vaginit is: care instructions Not available [...] DO Not Attach Compendium, Do Not Delete/merge, 149[address] 11/12/2015 08:23:55 11/12/19 16 11/12/2015 pap, LB [id number] ThinP rep Pap, Image d: NEGAT THONY [...] . menop ause, lps neg Not Available [facility], Cytopathology Service [address] [place], [address], 11/13/2015 15:18:53 12/11/19 16 12/11/2015 vitam in D, 25-hy droxy , total , serum comments [facility] [address] [facility] [place] [address] [phone] Not Available [facility] [address] [place], [address], 12/12/2015 04:21:54 12/11/19 16 12/11/2015 vitam in D, 25-hy droxy , total , serum vitamin D, 25-hydroxy 30 NG/mL 30-80 Vitam in D Refer ence Range s Defic iency : <20 ng/mL Insuf ficie ncy: 20-29 ng/mL Optim al: 30-80 ng/mL High: >80 ng/mL Not Available [facility] [address] [place], [address], 12/12/2015 04:21:54 11/12/19 17 11/11/2016 pap, LB [id number] ThinP rep Pap, Image d: NEGAT THONY [...] ASCUS . LPS neg. z12.4 Not Available [facility], Cytopathology Service [address] [place], [address], 11/12/2016 13:45:59 11/16/19 19 11/15/2018 pap, LB [id number] ThinP rep Pap, Image d: NEGAT THONY [...] MENOP AUSE, LPS = NEG Not Available [facility], Cytopathology Service [address] [place], [address], 11/17/2018 14:20:42 11/22/19 21 11/21/2020 PAP1C ASE [id number] ThinP rep Pap, Image d: NEGAT THONY [...] ASCUS . Lps neg, Z12.4 Not Available [facility], Cytopathology Service [address] [place], [address], 11/25/2020 11:00:41 12/11/19 23 12/10/2022 [facility] CYTOL OGY results Patie nt Name: AJ MINOR HEN Fabian nt : 1950 (Age: 72) Lab Acces gabo #: [id number] Colle ction Date: 2022 Acces gabo Date: 2022 Sign Out Date: 2022 Tissu e Sour e: 1: THINP REP HOSPITAL ADMINISTRATIVE ASSISTANT PAP TEST, CERVI OLVIN: Final Diagn osis: [...] NEG, ROUTI NE SCREE N Phone #: [phone], On-Ca ll Patho logis t: [id number] Not Available [facility] (Centralized Electronic Ordering - All Locations) Patient Can Go To The Location Of Their Choice, [address] 12/14/2022 11:16:37 11/20/19 16 11/19/2015 bone densi ty No observ ation record ed. [email or web address] Not Available 2015 11:40:45 08/19/19 17 08/18/2016 MAMMO , scree brina, digit al, bilat eral No observ ation record ed. Not Available 08/01 16:22:36 09/02/19 18 08/31/2017 MAMMO , scree brina, digit al, bilat eral No observ ation record ed. [facility] ([facility]) [address] [place], [address], 09/02/2017 09:29:55 09/08/19 19 09/07/2018 MAMMO , scree brina, digit al, bilat eral No observ ation record ed. [email or web address] Not Available 2018 09:09:02 09/09/19 19 09/07/2018 MAMMO , scree brina, digit al, bilat eral No observ ation record ed. [facility] ([facility]) [address] [place], [address], 09/08/2018 08:48:23 11/29/19 20 11/28/2019 MAMMO , scree brina, digit al, bilat eral No observ ation record ed. Not Available 11/02 08:12:57 12/03/19 21 12/02/2020 MAMMO , scree brina, digit al, bilat eral No observ ation record ed. Not Available 07/2020 08:13:17 12/04/19 21 12/02/2020 MAMMO , scree brina, digit al, bilat eral No observ ation record ed. [facility] [address] , [place], [address], 12/03/2020 14:32:15 12/11/19 22 12/10/2021 MAMMO , scree brina, digit al, bilat eral No observ ation record ed. [address] ([facility]) [address] [place], [address], 12/10/2021 12:13:04 12/18/19 23 12/17/2022 MAMMO , scree brina, digit al, bilat eral No observ ation record ed. [email or web address] [facility] ([facility]) [address] [place], [address], 12/28/2022 10:55:21 12/29/19 23 12/17/2022 MAMMO , scree brina, digit al, bilat eral No observ ation record ed. [address] ([facility]) [address] [place], [address], 12/28/2022 09:39:32 Result Notes None recorded. Problems Name Problem SNOMED Code Status Onset Date Resolution Date Notes Provider Name and Address Organization Details Recorded Time Vitamin D deficiency 37798667 Active 2009 Radha Skinner MD [address] [facility],[address], [place], [address] , [place] - [facility], 6 10:13:44 Benign essential hypertension 2017530 Active Not Available [facility] 3 03:01:07 Problem Notes None recorded. Procedures Surgical History Date Name Laterality Status Provider Name and Address Organization Details Recorded Time 12/11/19 22 Most Recent Mammogram completed Jayne Black [place] - [facility], 12/10/2022 08:15:20 06/03/19 13 Rep dev, urinary, w/sling completed Radha Skinner MD [address], [place], [address], [place] - [facility], 11/08/2013 08:25:57 05/03/18 72 Tonsillectomy completed Stacey Damico in [facility], 11/07/2012 14:14:42 05/03/18 52 Oophorectomy completed Stacey Damico in [facility], 11/07/2012 14:14:42 Imaging Results Imaging Date Name Status LastModified by Organiz ation Details LastModified Time 11/19/2015 bone density completed fermin Information not available 11/20/2015 11:40:45 08/18/2016 MAMMO, screening, digital, bilateral completed Information not available 08/18/2016 16:22:36 08/31/2017 MAMMO, screening, digital, bilateral completed [facility] ([facility]) [address] [place], [address], 09/02/2017 09:29:55 09/07/2018 MAMMO, screening, digital, bilateral completed [email or web address] Information not available 09/08/2018 09:09:02 09/07/2018 MAMMO, screening, digital, bilateral completed [facility] ([facility]) [address] [place], [address], 09/08/2018 08:48:23 11/28/2019 MAMMO, screening, digital, bilateral completed Information not available 11/30/2019 08:12:57 12/02/2020 MAMMO, screening, digital, bilateral completed Information not available 12/03/2020 08:13:17 12/02/2020 MAMMO, screening, digital, bilateral completed [facility] [address] [place], [address], 12/03/2020 14:32:15 12/10/2021 MAMMO, screening, digital, bilateral completed [facility] ([facility]) [address] [place], [address], 12/10/2021 12:13:04 12/17/2022 MAMMO, screening, digital, bilateral completed [email or web address] [facility] ([facility]) [address] [place], [address], 12/28/2022 10:55:21 12/17/2022 MAMMO, screening, digital, bilateral completed [email or web address] [facility] ([facility]) [address] [place], [address], 12/28/2022 09:39:32 Procedure Notes None recorded. Medical Equipment None Reported. Allergies Allergen ID Allergen Name Allergen Category Reaction Reaction Severity Criticality Documentation Date Start Date Code Code System Note Provider Name and Address Organization Details Recorded Time 6058 Zithromax medicatio n nausea Not available Not available 11/07/2012 4 RxNorm hira rgic Stacey reyna [place] - [facility], 3 14:14:43 Medications Name Sig [...] Available Not Available N ot Available Afluria 3227-6175 (PF) 45 mcg(15 mcg x 3)/0.5 mL [...] Address Organization Details Last Updated DateTime 9 49305.4 2 g 27.9 kg/m2 166.37 cm 67 /min 137 mm[Hg] 57 mm[Hg] Stacey Burt [place] - [facility], 9 08:09:40 Date Recorded Body height Body mass index (BMI) Body weight Heart rate Systolic blood pressure Diastolic blood pressure Provider Name and Address Organization Details Last Updated DateTime 1 166.37 cm 29.2 kg/m2 47054.4 4 g 70 /min 132 mm[Hg] 60 mm[Hg] Jayne Damico in [facility], 1 08:50:12 Date Recorded Body weight Body mass index (BMI) Body height Provider Name and Address Organization Details Last Updated DateTime 12/10/2022 35578.66 g 28.7 kg/m2 166.37 cm Jayne Damico in [facility], 12/10/2022 08:04:13 Date Recorded Body height Body weight Body mass index (BMI) Heart rate Systolic blood pressure Diastolic blood pressure Provider Name and Address Organization Details Last Updated DateTime 6 166.37 cm 20499.1 3 g 29 kg/m2 70 /min 136 mm[Hg] 69 mm[Hg] Stacey Damico in [facility], 6 09:13:43 Date Recorded Body height Body mass index (BMI) Body weight Heart rate Systolic blood pressure Diastolic blood pressure Provider Name and Address Organization Details Last Updated DateTime 7 166.37 cm 28.2 kg/m2 40886.1 7 g 66 /min 141 mm[Hg] 68 mm[Hg] Stacey Damico in [facility], 7 08:15:47 Social History Question Answer Notes LastModified by Organizat ion Details LastModified Time Tobacco Smoking Status Former Smoker Not Available [facility] 03/05/2020 03:19:39 Do You Have An Advance Directive? No Information n ot available 11/21/2020 Are You Blind Or Do You Have Difficulty Seeing? No [id number] Information n ot available 03/05/2020 Is Blood Transfusion Acceptable In An Emergency? No Information not available 11/21/2020 What Is Your Level Of Caffeine Consumption? Moderate Information not available 12/10/2022 In The 14 Days Before Symptom Onset, Have You Had Close Contact With A Laboratory-confirm ed COVID-19 While That Case Was Ill? No Information n ot available 11/21/2020 In The 14 Days Before Symptom Onset, Have You Had Close Contact With A Person Who Is Under Investigation For COVID-19 While That Person Was Ill? No Information not available 11/21/2020 Have You Been To An Area Known To Be High Risk For COVID-19? No Information not available 11/21/2020 Are You Deaf Or Do You Have Serious Difficulty Hearing? No [id number] Information not available 03/05/2020 What Type Of Diet Are You Following? REGULAR [id number] Information n ot available 03/05/2020 Which Illicit Or Recreational Drugs Have You Used? No [id number] Information not available 03/05/2020 Do You Reside In Or Have You Traveled To An Area Where Ebola Virus Transmission Is Active? No [id number] Information not available 03/05/2020 Education Post Graduate Information not available 11/07/2012 What Is The Highest Grade Or Level Of School You Have Completed Or The Highest Degree You Have Received? [id number] Information not available 11/21/2020 How Many Days In The Past Year [...] Which Gender Do You Self-identify? Female Information n ot available 11/12/2015 Marital Status Informatio n not available 11/07/2012 What Was The Date Of Your Most Recent Tobacco Screening? 12/10/2022 Information not available 12/10/2022 What Is Your Relationship Status? Information not available 11/21/2020 Are You Sexually Active? Yes [id number] Information not available 03/05/2020 Do You Have Smoke And Carbon Monoxide Detectors In Your Home? Yes Information not available 11/21/2020 How Much Tobacco Do You Smoke? No [id number] Information not available 03/05/2020 General Stress Level Low Information not available 11/15/2018 Do You Use Sunscreen Routinely? Yes Information not available 11/21/2020 How Many Years Have You Smoked Tobacco? 1 [id number] Information not available 03/05/2020 Do You Have Difficulty Walking Or Climbing Stairs? No [id number] Information not available 03/05/2020 Have You Recently (within The Last 12 Weeks, Or During A Current ) Traveled To Or Lived In A Zika-affected Area? No Information not available 11/12/2015 Sex: Female Functional Status Question Answer Note LastModified by Organizat ion Details LastModified Time Do you use any illicit or recreational drugs? No Information not available 11/21/2020 Do you or have you ever used any other forms of tobacco or nicotine? No Information not available 11/21/2020 What is your level of alcohol consumption? Occasional [id number] Information not available 03/05/2020 Are you currently employed? No Information not available 12/10/2022 Do you have difficulty doing errands alone? 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 No [id number] Information not available 03/05/2020 What is your exercise level? Heavy [id number] Information not available 03/05/2020 Mental Status Question Answer Note LastModified by Organization D etails LastModified Time Do you have difficulty concentrating, remembering or making decisions? No [id number] Information no t available 03/05/2020 Family History Relationship Description Onset Age of this Age Resolved Age Notes LastModified by Organization Details LastModified Time Maternal Grandmother Malignant neoplastic disease 85 previo usly record ed as Cancer Not available 11/09/2014 08:19:01 Father Diabetes mellitus previo usly record ed as Diabet es Not available 11/09/2014 08:19:01 Brother Myocardial infarction previo usly record ed as Heart Attack ([place]) x2 Not available 11/09/2014 08:19:01 Maternal Grandfather [...] Stacey Mecshaniwayad reyna [place] - [facility], 11/09/2014 08:11:37 Hep A, adult 4 completed Stacey Meczywor null, [place] - [facility], 11/09/2014 08:11:37 typhoid, oral 3 completed Stacey Mecstaceyywor maribell [place] - [facility], 11/09/2014 08:11:37 Tdap 3 completed Stacey Meczywor null, [place] - [facility], 11/09/2014 08:11:37 Influenza, split virus, quadrivalent, preservative 5 completed Stacey Meczywor null [place] - [facility], 11/12/2015 08:17:10 pneumococcal, unspecified formulation 5 completed Stacey Meczywor maribell [place] - [facility], 11/12/2015 08:17:55 zoster live 5 completed Stacey Meczywor null [place] - [facility], 11/12/2015 08:18:21 zoster live 9 completed Stacey Mecstaceyywayad reyna [place] - [facility], 11/15/2018 08:12:22 Influenza, split virus, quadrivalent, preservative 8 completed Stacey Meczywor null, [place] - [facility], 11/15/2018 08:12:47 zoster recombinant 9 completed Stacey Meczywor null, [place] - [facility], 12/10/2022 08:03:56 zoster recombinant 9 completed Stacey Meczywor null, [place] - [facility], 12/10/2022 08:03:56 Influenza, high-dose, quadrivalent, PF 2 completed Stacey Meczywor null, [place] - [facility], 12/10/2022 08:03:56 COVID-19, mRNA, LNP-S, PF, 100 mcg/0.5mL dose or 50 mcg/0.25mL dose 1 completed Stacey Meczywor null, [place] - [facility], 12/10/2022 08:03:57 COVID-19, mRNA, LNP-S, PF, 100 mcg/0.5mL dose or 50 mcg/0.25mL dose 1 completed Stacey Meczywor null, [place] - [facility], 12/10/2022 08:03:57 COVID-19, mRNA, LNP-S, PF, 100 mcg/0.5mL dose or 50 mcg/0.25mL dose 2 completed Stacey Meczywor null, [place] - [facility], 12/10/2022 08:03:57 COVID-19, mRNA, LNP-S, PF, 100 mcg/0.5mL dose or 50 mcg/0.25mL dose 1 completed Stacey Meczywor null, [place] - [facility], 12/10/2022 08:03:57 Pneumococcal conjugate PCV20, polysaccharide [id number] conjugate, adjuvant, PF 3 completed Stacey Meczywor null, [place] - [facility], 12/10/2022 08:03:57 COVID-19, mRNA, LNP-S, bivalent, PF, 50 mcg/0.5 mL or 25mcg/0.25 mL dose 2 completed Stacey Meczywor null, [place] - [facility], 12/10/2022 08:03:57 influenza, unspecified formulation 2 completed Stacey Meczywor null, [place] - [facility], 12/10/2022 08:03:57 Tdap 3 completed Stacey Meczywor null, [place] - [facility], 12/10/2022 08:03:57 Influenza, split virus, trivalent, preservative 1 completed Stacey Meczywor null, [place] - [facility], 12/10/2022 08:03:57 Influenza, split virus, trivalent, PF 7 completed Stacey Meczywor null, [place] - [facility], 12/10/2022 08:03:57 Past Encounters Encounter ID Performer Location Encounter Start Date Encounter Closed Date Diagnosis/Indication Diagnosis SNOMED-CT Code Diagnosis ICD10 Code Diagnosis Note [id number] MD RADHA Sorensen MD [address] [place] [address], [address] [place] [address] 11/07/2012 13:42:33 11/07/2012 16:26:55 [id number] MD RADHA Sorensen MD [address] [place] [address] [address] [place] [address] 11/08/2013 08:01:42 11/08/2013 10:52:29 Specialized medical examination 99705633 Screening for malignant neoplasm of rectum 018228193 Screening mammography 78604038 [id number] MD RADHA Sorensen MD [address] [place] [address] [address] [place] [address] 11/09/2014 07:56:07 11/09/2014 12:57:19 Specialized medical examination 80653960 Screening for malignant neoplasm of rectum 257904881 Screening mammography 44916187 [id number] MD RADHA SorensenAN MD [address] [place] [address],[facility] Josefina [place] [address] 11/12/2015 08:08:55 11/12/2015 11:13:43 Specialized medical examination 17369219 Z01.419 Screening for malignant neoplasm of rectum 767612019 Z12.12 Screening mammography 24 698036 Z12.31 Menopausal syndrome 1237 93071 N95.9 [id number] MD RADHA Sorensen MD [address] [place] [address],[facility] Josefina [place] [address] 12/11/2015 09:02:33 12/11/2015 10:53:48 Osteopenia 266347335 M85.852 Vitamin D deficiency 347 95630 E55.9 [id number] MD RADHA Sorensen MD [address] [place] [address] Josefina [place] [address] 11/11/2016 07:58:55 11/11/2016 09:52:37 Screening for malignant neoplasm of cervix 588822082 Z12.4 Screening mammography 24 338937 Z12.31 Cares for self 004208086 Z76.89 [id number] MD RADHA Sorensen MD [address] [place] [address] [place] [address] 11/15/2018 07:55:22 11/15/2018 11:17:51 Screening for malignant neoplasm of cervix 629379320 Z12.4 Screening mammography 24 515857 Z12.31 Screening for osteoporosis 470187587 Z13.820 [id number] MD RADHA Sorensen MD [address] [place] [address] [place] [address] 11/21/2020 08:18:49 11/21/2020 10:40:27 Screening for malignant neoplasm of cervix 046300233 Z12.4 Screening mammography 24 795818 Z12.31 Screening for osteoporosis 821052792 N95.8 [id number] MD RADHA Sorensen MD [address] [place] [address] Josef[place] [address] 12/10/2022 08:01:35 12/10/2022 09:31:36 Screening for malignant neoplasm of cervix 341452667 Z12.4 Screening mammography 24 874779 Z12.31 Screening for osteoporosis 397767480 N95.8 Health Concerns Section Related Observation LastModified by Organization Detai ls LastModified Time None Recorded Concern Status LastModified by Organization Details LastModified Time None Recorded Advance Directives Directive N: Payers Encounter Date Sequence Insurance Name Policy Number Policy Guajardo Covered Member ID Guajardo Member ID Guarantor Name 12/11/2015 1 [employer] - GIC (INDEMNITY) [id number] Jessica Schwamb [id number] Jessica Schwamb 11/11/2016 2 [employer] - SENIOR SERVICES PLAN F (MEDICARE SUPPLEMENT) [id number] Jessica Schwamb [id number] Jessica Schwamb 11/11/2016 1 [place] Jessica W Schwamb [id number] Jessica Schwamb 11/15/2018 2 [employer] - SENIOR SERVICES PLAN F (MEDICARE SUPPLEMENT) [id number] Jessica Schwamb [id number] Jessica Schwamb 11/15/2018 1 [place] Jessica W Schwamb [id number] Jessica Schwamb 11/21/2020 2 [employer] - SENIOR SERVICES PLAN F (MEDICARE SUPPLEMENT) [id number] Jessica Schwamb [id number] Jessica Schwamb 11/21/2020 1 [place] Jessica W Schwamb [id number] Jessica Schwamb 12/10/2022 2 [employer] - SENIOR SERVICES PLAN F (MEDICARE SUPPLEMENT) [id number] Jessica Schwamb [id number] Jessica Schwamb 12/10/2022 1 [place] Jessica W Schwamb [id number] Jessica Schwamb Notes Date Note Type Note Provider Name and Address Organization Details Recorded Time 12/11/2015 text/html She is here for discussion of her recent bone density which showed osteopenia with a T score of -1.2 in the left hip. Radha Skinner MD [address], [place], [address], [place] - [facility], 12/11/2015 10:14:12 11/11/2016 text/html She is here for annual exam, is doing well. Bone density of -1.2 last year. Radha Skinner MD [address], [place], [address], [place] - [facility], 11/11/2016 09:55:19 11/15/2018 text/html She is here for annual exam, is doing well. Her Azam is her health care proxy. Radha Skinner MD [address] [address], [place], [id number], [place] - [facility], 11/15/2018 11:02:34 11/21/2020 text/html She is here for annual exam, is doing well. Her Azam is her health care proxy. Radha Skinner MD [address], [place], [id number], [place] - [facility], 11/21/2020 08:59:56 12/10/2022 text/html She is here for annual exam, is doing well. Her Azam is her health care proxy. Radha Skinner MD [address], [place], [id number], [place] - [facility], 12/10/2022 09:07:05 OBGyn Episode No OBEpisode recorded.
== END 2024-09-14 10:10 | disposition home or self-care (01) ==
LOC: HO.HOS 09:29
PROVIDERS: PCP Internal Medicine; Visit Provider Physician Assistant
DX: M19.012 Primary osteoarthritis, left shoulder (principal)
CPT/HCPCS: 99213

== ENCOUNTER → 2024-09-14 09:31 | Outpatient (BNV) | payer MEDICARE, OTHER, SELFPAY | PROVIDERS: Visit Provider Radiology Diagnostic Radiology | DX: M19.012 Primary osteoarthritis, left shoulder (principal) | CPT/HCPCS: 73030 ==

== ENCOUNTER 2024-09-14 12:02 | Outpatient (REF) | payer MEDICARE, OTHER, SELFPAY ==
--- NOTE | ~2024-09-14 | XR_ITS ---
EXAMINATION: XR SHOULDER 2 OR MORE VIEWS LEFT HISTORY: M25.519 - Pain in unspecified shoulder COMPARISON: There are no prior studies available for comparison. FINDINGS: Three views of the left shoulder are submitted. Osseous mineralization is normal. There is no fracture or dislocation. There is severe osteoarthritis of the glenohumeral joint with joint space narrowing and osteophyte formation. There is mild narrowing of the AC joint. A soft tissue calcification adjacent to the greater tuberosity of the humerus is likely related to the rotator cuff. XR/XR shoulder LT min 2V IMPRESSION: Severe osteoarthritis of the glenohumeral joint. Probable rotator cuff calcification. Electronically signed by: Todd Haley MD 09/14/2024 10:01 AM EDT
--- OUTSIDE RECORDS SUMMARY | 2024-09-18 12:33 | XMS_ITS | Encounter Summary ---
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
--- OUTSIDE RECORDS SUMMARY | 2024-09-18 12:33 | XMS_ITS | Encounter Summary ---
Author Organization [facility] Address [address] [place] [address] Care Team Providers Care Sustainable Design Coordinator Name Role Phone Aroldo Rojo Primary Care Provider Shirley Gilliland MD Primary Care Provider Donald ward Encounter Details Date Type Department Care Team Description 11/10/2006 SCAN Medical Records [address] [place] [id number] Abstract, Provider Social History Tobacco Use Types [...] on filedocumented in this encounter Care Teams Sustainable Design Coordinator Relationship Specialty Start Date End Date Aroldo Rojo PCP - General 07/15/08 12/21/21 Shirley Borjas MD PCP - General Internal Medicine 12/22/21 documented as of this encounter
--- OUTSIDE RECORDS SUMMARY | 2024-09-18 12:33 | XMS_ITS | Encounter Summary ---
Author Organization [facility] Address [address] [place] [address] Care Team Providers Care Individualized Education Plan Aide Name Role Phone Aroldo Rojo Primary Care Provider Shirley Gilliland MD Primary Care Provider Donald ward Encounter Details Date Type Department Care Team Description 08/19/2016 Business Doc Medical Records [address] [place] [id number] Abstract, Provider Social History Tobacco Use Types [...] on filedocumented in this encounter Care Teams Individualized Education Plan Aide Relationship Specialty Start Date End Date Aroldo Rojo PCP - General 07/15/08 12/21/21 Shirley Borjas MD PCP - General Internal Medicine 12/22/21 documented as of this encounter
--- OUTSIDE RECORDS SUMMARY | 2024-09-18 12:33 | XMS_ITS | Encounter Summary ---
Author Organization [facility] Address [address] [place] [address] Care Team Providers Care Sheet Metal Assembler And Riveter Name Role Phone Aroldo Rojo Primary Care Provider Josiea Shirley Servin MD Primary Care Provider Donald ward Encounter Details Date Type Department Care Team Description 07/21/2010 SCAN Medical Records [address] [place] [id number] Antonio Thompson MD Social History Tobacco Use [...] on filedocumented in this encounter Care Teams Sheet Metal Assembler And Riveter Relationship Specialty Start Date End Date Aroldo Rojo PCP - General 07/15/08 12/21/21 Shirley Borjas MD PCP - General Internal Medicine 12/22/21 documented as of this encounter
--- OUTSIDE RECORDS SUMMARY | 2024-09-18 12:33 | XMS_ITS | Encounter Summary ---
Author Organization [facility] Address [address] [place] [address] Care Team Providers Care Potato Bucker Name Role Phone Aroldo Rojo Primary Care Provider Shirley Gilliland MD Primary Care Provider Donald ward Encounter Details Date Type Department Care Team Description 12/22/2011 Delicate Fabrics Presser Report Medical Records [address] [place] [address] Antoine Quevedo Social History Tobacco Use Types [...] on filedocumented in this encounter Care Teams Potato Bucker Relationship Specialty Start Date End Date Aroldo Rojo PCP - General 07/15/08 12/21/21 Shirley Borjas MD PCP - General Internal Medicine 12/22/21 documented as of this encounter
--- OUTSIDE RECORDS SUMMARY | 2024-09-18 12:33 | XMS_ITS | Encounter Summary ---
Author Organization [facility] Address [address] [place] [address] Care Team Providers Care Ivory Carver Name Role Phone Aroldo Rojo Primary Care Provider Josiea Shirley Servin MD Primary Care Provider Donald ward Encounter Details Date Type Department Care Team Description 12/01/2004 SCAN Medical Records [address] [place] [id number] Abstract, Provider Social History Tobacco Use Types [...] on filedocumented in this encounter Care Teams Ivory Carver Relationship Specialty Start Date End Date Aroldo Rojo PCP - General 07/15/08 12/21/21 Shirley Borjas MD PCP - General Internal Medicine 12/22/21 documented as of this encounter
--- OUTSIDE RECORDS SUMMARY | 2024-09-18 12:33 | XMS_ITS | Encounter Summary ---
Author Organization [facility] Address [address] [place] [address] Care Team Providers Care Printer Slotter Feeder Name Role Phone Aroldo Rojo Primary Care Provider Shirley Gilliland MD Primary Care Provider Donald ward Encounter Details Date Type Department Care Team Description 09/08/2018 Business Doc Medical Records [address] [place] [address] Abstract, Provider Social History Tobacco Use Types [...] on filedocumented in this encounter Care Teams Printer Slotter Feeder Relationship Specialty Start Date End Date Aroldo Rojo PCP - General 07/15/08 12/21/21 Shirley Borjas MD PCP - General Internal Medicine 12/22/21 documented as of this encounter
--- OUTSIDE RECORDS SUMMARY | 2024-09-18 12:33 | XMS_ITS | Encounter Summary ---
Author Organization [facility] Address [address] [place] [address] Care Team Providers Care Full Stack Developer Name Role Phone Aroldo Rojo Primary Care Provider Shirley Gilliland MD Primary Care Provider Donald ward Encounter Details Date Type Department Care Team Description 09/02/2017 Business Doc Medical Records [address] [place] [phone] Abstract, Provider Social History Tobacco Use Types [...] on filedocumented in this encounter Care Teams Full Stack Developer Relationship Specialty Start Date End Date Aroldo Rojo PCP - General 07/15/08 12/21/21 Shirley Borjas MD PCP - General Internal Medicine 12/22/21 documented as of this encounter
--- OUTSIDE RECORDS SUMMARY | 2024-09-18 12:33 | XMS_ITS | Encounter Summary ---
Author Organization [facility] Address [address] [place] [address] Care Team Providers Care Kiln Labourer Name Role Phone Shirley Borjas MD Primary Care Provider Donald ward Encounter Details Date Type Department Care Team Description 12/18/2022 Business Doc Medical Records [address] [place] [phone] Abstract, Provider Social History Tobacco Use Types [...] on filedocumented in this encounter Care Teams Kiln Labourer Relationship Specialty Start Date End Date Shirley Borjas MD PCP - General Internal Medicine 12/22/21 documented as of this encounter
--- OUTSIDE RECORDS SUMMARY | 2024-09-18 12:34 | XMS_ITS | Data Portability ---
Author Organization [place] - [facility],, RADHA SKINNER MD Address [address] [address] Assessment No assessment recorded. Plan of Treatment Reminders Order Date Submit Date Provider Last Modified By Organization Details Last Modified Time Details Appointments None recorded. Lab pap test, thinprep, cervical 2022 023 [facility] (Centralized Electronic Ordering - All Locations), Patient Can Go To The Location Of Their Choice, [id number] 3 07:37:29 pap test, thinprep, cervical 2020 021 [facility], Cytopathology Service, [address] [place], [address], 1 07:39:17 pap test, thinprep, cervical 2018 019 [facility], Cytopathology Service, [address] [place], [address], 9 07:35:32 pap test, thinprep, cervical 2016 017 [facility], Cytopathology Service, [address] [place], [address], 7 13:45:59 vitamin D, 25-hydrox y, total, serum 2015 016 [id number] [facility], [address] [place], [address], 6 04:20:30 Referral None recorded. Procedures None recorded. Surgeries None recorded. Imaging MAMMO, screening , digital, bilateral - Breast Aspiratio n and/or Biopsy if needed [address] [facility] ([facility] [address] [place] [address], [address], 3 09:26:31 bone density 2022 023 [facility], [address] [place] [address], [address], 5 07:44:16 MAMMO, screening , digital, bilateral 2020 021 [facility], [address] [place] [address], [address], 1 18:06:43 bone density [address] [facility], [address] [place] [address], [address], 2 08:44:20 MAMMO, screening , digital, bilateral 2018 019 [facility], [address] [place] [address], [address], 0 07:31:31 bone density 2018 019 [facility], [address] [place] [address], [address], 0 07:54:53 MAMMO, screening , digital, bilateral [address] [facility] ([facility]), [address] [place] [address], [address], 8 12:02:10 Medication Orders None recorded. Patient TargetsNo targets recorded. Patient Instructions Encounter Date Encounter Id Patient Instructions Last Modified By Organization Details Last Modified Time 12/11/2015 [id number] She is here for discussion of her [...] 25 minutes. Not available 12/11/2015 10:13:27 11/11/2016 [id number] advance directiv es: care instructions [email or web address] Not [...] questions answered. Not available 11/11/2016 08:39:22 11/15/2018 [id number] atrophic vaginit is: care instructions Not available [...] questions answered. Not available 11/15/2018 11:02:15 11/21/2020 [id number] atrophic vaginit is: care instructions Not available [...] the breast. Not available 11/21/2020 08:59:29 12/10/2022 [id number] atrophic vaginit is: care instructions Not available [...] DO Not Attach Compendium, Do Not Delete/merge, [id number] 11/12/2015 08:23:55 11/12/19 16 11/12/2015 pap, LB [id number] ThinP rep Pap, Image d: NEGAT THONY [...] . menop ause, lps neg Not Available [facility], Cytopathology Service [address] [place], [address], 11/13/2015 15:18:53 12/11/19 16 12/11/2015 vitam in D, 25-hy droxy , total , serum comments [facility] [address] [facility] [place] [address] [phone] Not Available [facility] [address] [place], [address], 12/12/2015 04:21:54 12/11/19 16 12/11/2015 vitam in D, 25-hy droxy , total , serum vitamin D, 25-hydroxy 30 NG/mL 30-80 Vitam in D Refer ence Range s Defic iency : <20 ng/mL Insuf ficie ncy: 20-29 ng/mL Optim al: 30-80 ng/mL High: >80 ng/mL Not Available [facility] [address] [place], [address], 12/12/2015 04:21:54 11/12/19 17 11/11/2016 pap, LB [id number] ThinP rep Pap, Image d: NEGAT THONY [...] ASCUS . LPS neg. z12.4 Not Available [facility], Cytopathology Service [address] [place], [address], 11/12/2016 13:45:59 11/16/19 19 11/15/2018 pap, LB [id number] ThinP rep Pap, Image d: NEGAT THONY [...] MENOP AUSE, LPS = NEG Not Available [facility], Cytopathology Service [address] [place], [address], 11/17/2018 14:20:42 11/22/19 21 11/21/2020 PAP1C ASE [id number] ThinP rep Pap, Image d: NEGAT THONY [...] ASCUS . Lps neg, Z12.4 Not Available [facility] Cytopathology Service [address] [place], [address], 11/25/2020 11:00:41 12/11/19 23 12/10/2022 [facility] CYTOL OGY results Patie nt Name: AJ MINOR HEN Fabian nt : 1950 (Age: 72) Lab Acces gabo #: [id number] Colle ction Date: 2022 Acces gabo Date: 2022 Sign Out Date: 2022 Tissu e Sour e: 1: THINP REP STORM DOOR MAKER PAP TEST, CERVI OLVIN: Final Diagn osis: [...] pearce or vaughn roberts. Perfo rmed at [facility] ate Refer ence Labor at[facility] depar tment of Cytol ogy, [address] [place] Clini olvin Histo ry (othe r): Z12.4 , LPS 11/21 NEG, ROUTI NE SCREE N Phone #: [phone], On-Ca ll Patho logis t: 40[address] Not Available [facility] (Centralized Electronic Ordering - All Locations) Patient Can Go To The Location Of Their Choice, [address] 12/14/2022 11:16:37 11/20/19 16 11/19/2015 bone densi ty No observ ation record ed. [email or web address] Not Available 2015 11:40:45 08/19/19 17 08/18/2016 MAMMO , scree brina, digit al, bilat eral No observ ation record ed. Not Available 08/01 16:22:36 09/02/19 18 08/31/2017 MAMMO , scree brina, digit al, bilat eral No observ ation record ed. [facility] ([facility]) [address] [place], [address], 09/02/2017 09:29:55 09/08/19 19 09/07/2018 MAMMO , scree brina, digit al, bilat eral No observ ation record ed. [email or web address] Not Available 2018 09:09:02 09/09/19 19 09/07/2018 MAMMO , scree brina, digit al, bilat eral No observ ation record ed. [facility] ([facility]) [address] [place], [address], 09/08/2018 08:48:23 11/29/19 20 11/28/2019 MAMMO , scree brina, digit al, bilat eral No observ ation record ed. Not Available 11/02 08:12:57 12/03/19 21 12/02/2020 MAMMO , scree brina, digit al, bilat eral No observ ation record ed. Not Available 07/2020 08:13:17 12/04/19 21 12/02/2020 MAMMO , scree brina, digit al, bilat eral No observ ation record ed. [facility] [address] , [place], [address], 12/03/2020 14:32:15 12/11/19 22 12/10/2021 MAMMO , scree brina, digit al, bilat eral No observ ation record ed. [address] ([facility]) [address] [place], [address], 12/10/2021 12:13:04 12/18/19 23 12/17/2022 MAMMO , scree brina, digit al, bilat eral No observ ation record ed. [email or web address] [facility] ([facility]) [address] [place], [address], 12/28/2022 10:55:21 12/29/19 23 12/17/2022 MAMMO , scree brina, digit al, bilat eral No observ ation record ed. [address] ([facility]) [address] [place], [address], 12/28/2022 09:39:32 Result Notes None recorded. Problems Name Problem SNOMED Code Status Onset Date Resolution Date Notes Provider Name and Address Organization Details Recorded Time Vitamin D deficiency 40347284 Active 2009 Radha Skinner MD [address] [facility],[address], [place], [address] , [place] - [facility], 6 10:13:44 Benign essential hypertension 9397993 Active Not Available [facility] 3 03:01:07 Problem Notes None recorded. Procedures Surgical History Date Name Laterality Status Provider Name and Address Organization Details Recorded Time 12/11/19 22 Most Recent Mammogram completed Jayne Black [place] - [facility], 12/10/2022 08:15:20 06/03/19 13 Rep dev, urinary, w/sling completed Radha Skinner MD [address], [place], [address], [place] - [facility], 11/08/2013 08:25:57 05/03/18 72 Tonsillectomy completed Stacey Damico in [facility], 11/07/2012 14:14:42 05/03/18 52 Oophorectomy completed Stacey Damico in [facility], 11/07/2012 14:14:42 Imaging Results Imaging Date Name Status LastModified by Organiz ation Details LastModified Time 11/19/2015 bone density completed fermin Information not available 11/20/2015 11:40:45 08/18/2016 MAMMO, screening, digital, bilateral completed Information not available 08/18/2016 16:22:36 08/31/2017 MAMMO, screening, digital, bilateral completed [facility] ([facility]) [address] [place], [address], 09/02/2017 09:29:55 09/07/2018 MAMMO, screening, digital, bilateral completed [email or web address] Information not available 09/08/2018 09:09:02 09/07/2018 MAMMO, screening, digital, bilateral completed [facility] ([facility]) [address] [place], [address], 09/08/2018 08:48:23 11/28/2019 MAMMO, screening, digital, bilateral completed Information not available 11/30/2019 08:12:57 12/02/2020 MAMMO, screening, digital, bilateral completed Information not available 12/03/2020 08:13:17 12/02/2020 MAMMO, screening, digital, bilateral completed [facility] [address] [place], [address], 12/03/2020 14:32:15 12/10/2021 MAMMO, screening, digital, bilateral completed [facility] ([facility]) [address] [place], [address], 12/10/2021 12:13:04 12/17/2022 MAMMO, screening, digital, bilateral completed [email or web address] [facility] ([facility]) [address] [place], [address], 12/28/2022 10:55:21 12/17/2022 MAMMO, screening, digital, bilateral completed [email or web address] [facility] ([facility]) [address] [place], [address], 12/28/2022 09:39:32 Procedure Notes None recorded. Medical Equipment None Reported. Allergies Allergen ID Allergen Name Allergen Category Reaction Reaction Severity Criticality Documentation Date Start Date Code Code System Note Provider Name and Address Organization Details Recorded Time 7794 Zithromax medicatio n nausea Not available Not available 11/07/2012 4 RxNorm hira rgic Stacey reyna [place] - [facility], 3 14:14:43 Medications Name Sig [...] Available Not Available N ot Available Afluria 3989-4527 (PF) 45 mcg(15 mcg x 3)/0.5 mL [...] Address Organization Details Last Updated DateTime 9 31871.4 2 g 27.9 kg/m2 166.37 cm 67 /min 137 mm[Hg] 57 mm[Hg] Stacey Burt [place] - [facility], 9 08:09:40 Date Recorded Body height Body mass index (BMI) Body weight Heart rate Systolic blood pressure Diastolic blood pressure Provider Name and Address Organization Details Last Updated DateTime 1 166.37 cm 29.2 kg/m2 63257.4 4 g 70 /min 132 mm[Hg] 60 mm[Hg] Jayne Damico in [facility], 1 08:50:12 Date Recorded Body weight Body mass index (BMI) Body height Provider Name and Address Organization Details Last Updated DateTime 12/10/2022 14687.66 g 28.7 kg/m2 166.37 cm Jayne Damico in [facility], 12/10/2022 08:04:13 Date Recorded Body height Body weight Body mass index (BMI) Heart rate Systolic blood pressure Diastolic blood pressure Provider Name and Address Organization Details Last Updated DateTime 6 166.37 cm 31907.1 3 g 29 kg/m2 70 /min 136 mm[Hg] 69 mm[Hg] Stacey Damico in [facility], 6 09:13:43 Date Recorded Body height Body mass index (BMI) Body weight Heart rate Systolic blood pressure Diastolic blood pressure Provider Name and Address Organization Details Last Updated DateTime 7 166.37 cm 28.2 kg/m2 65483.1 7 g 66 /min 141 mm[Hg] 68 mm[Hg] Stacey Damico in [facility], 7 08:15:47 Social History Question Answer Notes LastModified by Organizat ion Details LastModified Time Tobacco Smoking Status Former Smoker Not Available [facility] 03/05/2020 03:19:39 Do You Have An Advance Directive? No Information n ot available 11/21/2020 Are You Blind Or Do You Have Difficulty Seeing? No [id number] Information n ot available 03/05/2020 Is Blood [...] Do You Have Serious Difficulty Hearing? No [id number] Information not available 03/05/2020 What Type Of Diet Are You Following? REGULAR [id number] Information n ot available 03/05/2020 Which Illicit Or Recreational Drugs Have You Used? No [id number] Information not available 03/05/2020 Do You Reside In Or Have You Traveled To An Area Where Ebola Virus Transmission Is Active? No [id number] Information not available 03/05/2020 Education Post Graduate Information not available 11/07/2012 What Is The Highest Grade Or Level Of School You Have Completed Or The Highest Degree You Have Received? AL44877-5 Information not available 11/21/2020 How Many Days [...] available 11/21/2020 Are You Sexually Active? Yes [id number] Information not available 03/05/2020 Do You Have Smoke And Carbon Monoxide Detectors In Your Home? Yes Information not available 11/21/2020 How Much Tobacco Do You Smoke? No [id number] Information not available 03/05/2020 General Stress Level Low Information not available 11/15/2018 Do You Use Sunscreen Routinely? Yes Information not available 11/21/2020 How Many Years Have You Smoked Tobacco? 1 [id number] Information not available 03/05/2020 Do You Have Difficulty Walking Or Climbing Stairs? No [id number] Information not available 03/05/2020 Have You Recently [...] is your level of alcohol consumption? Occasional [id number] Information not available 03/05/2020 Are you currently employed? No Information not available 12/10/2022 Do you have difficulty doing errands alone? 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 No [id number] Information not available 03/05/2020 What is your exercise level? Heavy [id number] Information not available 03/05/2020 Mental Status Question Answer Note LastModified by Organization D etails LastModified Time Do you have difficulty concentrating, remembering or making decisions? No [id number] Information no t available 03/05/2020 Family History Relationship Description Onset Age of this Age Resolved Age Notes LastModified by Organization Details LastModified Time Maternal Grandmother Malignant neoplastic disease 85 previo usly record ed as Cancer Not available 11/09/2014 08:19:01 Father Diabetes mellitus previo usly record ed as Diabet es Not available 11/09/2014 08:19:01 Brother Myocardial infarction previo usly record ed as Heart Attack ([place]) x2 Not available 11/09/2014 08:19:01 Maternal Grandfather [...] Stacey Mecshaniwayad reyna [place] - [facility], 11/09/2014 08:11:37 Hep A, adult 4 completed Stacey Meczywor null, [place] - [facility], 11/09/2014 08:11:37 typhoid, oral 3 completed Stacey Mecstaceyywayad reyna [place] - [facility], 11/09/2014 08:11:37 Tdap 3 completed Stacey Meczywor null, [place] - [facility], 11/09/2014 08:11:37 Influenza, split virus, quadrivalent, preservative 5 completed Stacey Meczywor null [place] - [facility], 11/12/2015 08:17:10 pneumococcal, unspecified formulation 5 completed Stacey Meczywor maribell [place] - [facility], 11/12/2015 08:17:55 zoster live 5 completed Stacey Meczywor null [place] - [facility], 11/12/2015 08:18:21 zoster live 9 completed Stacey Mecstaceyywayad reyna [place] - [facility], 11/15/2018 08:12:22 Influenza, split virus, quadrivalent, preservative 8 completed Stacey Meczywor null, [place] - [facility], 11/15/2018 08:12:47 zoster recombinant 9 completed Stacey Meczywor null, [place] - [facility], 12/10/2022 08:03:56 zoster recombinant 9 completed Stacey Meczywor null, [place] - [facility], 12/10/2022 08:03:56 Influenza, high-dose, quadrivalent, PF 2 completed Stacey Meczywor null, [place] - [facility], 12/10/2022 08:03:56 COVID-19, mRNA, LNP-S, PF, 100 mcg/0.5mL dose or 50 mcg/0.25mL dose 1 completed Stacey Meczywor null, [place] - [facility], 12/10/2022 08:03:57 COVID-19, mRNA, LNP-S, PF, 100 mcg/0.5mL dose or 50 mcg/0.25mL dose 1 completed Stacey Meczywor null, [place] - [facility], 12/10/2022 08:03:57 COVID-19, mRNA, LNP-S, PF, 100 mcg/0.5mL dose or 50 mcg/0.25mL dose 2 completed Stacey Meczywor null, [place] - [facility], 12/10/2022 08:03:57 COVID-19, mRNA, LNP-S, PF, 100 mcg/0.5mL dose or 50 mcg/0.25mL dose 1 completed Stacey Meczywor null, [place] - [facility], 12/10/2022 08:03:57 Pneumococcal conjugate PCV20, polysaccharide IRQ242 conjugate, adjuvant, PF 3 completed Stacey Meczywor null, [place] - [facility], 12/10/2022 08:03:57 COVID-19, mRNA, LNP-S, bivalent, PF, 50 mcg/0.5 mL or 25mcg/0.25 mL dose 2 completed Stacey Meczywor null, [place] - [facility], 12/10/2022 08:03:57 influenza, unspecified formulation 2 completed Stacey Meczywor null, [place] - [facility], 12/10/2022 08:03:57 Tdap 3 completed Stacey Meczywor null, [place] - [facility], 12/10/2022 08:03:57 Influenza, split virus, trivalent, preservative 1 completed Stacey Meczywor null, [place] - [facility], 12/10/2022 08:03:57 Influenza, split virus, trivalent, PF 7 completed Stacey Meczywor null, [place] - [facility], 12/10/2022 08:03:57 Past Encounters Encounter ID Performer Location Encounter Start Date Encounter Closed Date Diagnosis/Indication Diagnosis SNOMED-CT Code Diagnosis ICD10 Code Diagnosis Note [id number] MD RADHA Sorensen MD [address] [place] [address], [address] [place] [address] 11/07/2012 13:42:33 11/07/2012 16:26:55 [id number] MD RADHA Sorensen MD [address] [place] [address] [address] [place] [address] 11/08/2013 08:01:42 11/08/2013 10:52:29 Specialized medical examination 38032781 Screening for malignant neoplasm of rectum 887549910 Screening mammography [id number] MD RADHA Sorensen MD [address] [place] [address] [address] [place] [address] 11/09/2014 07:56:07 11/09/2014 12:57:19 Specialized medical examination 92366475 Screening for malignant neoplasm of rectum 330242143 Screening mammography 73446801 [id number] MD RADHA SorensenAN MD [address] [place] [address],[facility] Josefina [place] [address] 11/12/2015 08:08:55 11/12/2015 11:13:43 Specialized medical examination 42457188 Z01.419 Screening for malignant neoplasm of rectum 390537324 Z12.12 Screening mammography 24 188419 Z12.31 Menopausal syndrome 1237 77997 N95.9 [id number] MD RADHA Sorensen MD [address] [place] [address],[facility] Jose[place] [address] 12/11/2015 09:02:33 12/11/2015 10:53:48 Osteopenia 974610774 M85.852 Vitamin D deficiency 347 01190 E55.9 [id number] MD RADHA Sorensen MD [address] [place] [address] Josef[place] [address] 11/11/2016 07:58:55 11/11/2016 09:52:37 Screening for malignant neoplasm of cervix 634621626 Z12.4 Screening mammography 24 621372 Z12.31 Cares for self 686661788 Z76.89 [id number] MD RADHA Sorensen MD [address] [place] [address] [place] [address] 11/15/2018 07:55:22 11/15/2018 11:17:51 Screening for malignant neoplasm of cervix 372135981 Z12.4 Screening mammography 24 324088 Z12.31 Screening for osteoporosis 679065221 Z13.820 [id number] MD RADHA Sorensen MD [address] [place] [address] [place] [address] 11/21/2020 08:18:49 11/21/2020 10:40:27 Screening for malignant neoplasm of cervix 391122128 Z12.4 Screening mammography 24 175436 Z12.31 Screening for osteoporosis 127890732 N95.8 [id number] MD RADHA Sorensen MD [address] [place] [address] Jose[place] [place] [address] 12/10/2022 08:01:35 12/10/2022 09:31:36 Screening for malignant neoplasm of cervix 725696365 Z12.4 Screening mammography 24 960670 Z12.31 Screening for osteoporosis 855294452 N95.8 Health Concerns Section Related Observation LastModified by Organization Detai ls LastModified Time None Recorded Concern Status LastModified by Organization Details LastModified Time None Recorded Advance Directives Directive N: Payers Encounter Date Sequence Insurance Name Policy Number Policy Guajardo Covered Member ID Guajardo Member ID Guarantor Name 12/11/2015 1 [employer] - GIC (INDEMNITY) [id number] Jessica Schwamb [id number] Jessica Schwamb 11/11/2016 2 [employer] - SENIOR SERVICES PLAN F (MEDICARE SUPPLEMENT) [id number] Jessica Schwamb [id number] Jessica Schwamb 11/11/2016 1 [place] Jessica W Schwamb [id number] Jessica Schwamb 11/15/2018 2 [employer] - SENIOR SERVICES PLAN F (MEDICARE SUPPLEMENT) [id number] Jessica Schwamb [id number] Jessica Schwamb 11/15/2018 1 [place] Jessica W Schwamb [id number] Jessica Schwamb 11/21/2020 2 [employer] - SENIOR SERVICES PLAN F (MEDICARE SUPPLEMENT) [id number] Jessica Schwamb [id number] Jessica Schwamb 11/21/2020 1 [place] Jessica W Schwamb [id number] Jessica Schwamb 12/10/2022 2 [employer] - SENIOR SERVICES PLAN F (MEDICARE SUPPLEMENT) [id number] Jessica Schwamb [id number] Jessica Schwamb 12/10/2022 1 [place] Jessica W Schwamb [id number] Jessica Schwamb Notes Date Note Type Note Provider Name and Address Organization Details Recorded Time 12/11/2015 text/html She is here for discussion of her recent bone density which showed osteopenia with a T score of -1.2 in the left hip. Radha Skinner MD [address], [place], [address], [place] - [facility], 12/11/2015 10:14:12 11/11/2016 text/html She is here for annual exam, is doing well. Bone density of -1.2 last year. Radha Skinner MD [address], [place], [address], [place] - [facility], 11/11/2016 09:55:19 11/15/2018 text/html She is here for annual exam, is doing well. Her Azam is her health care proxy. Radha Skinner MD [address], [place], [address], [place] - [facility], 11/15/2018 11:02:34 11/21/2020 text/html She is here for annual exam, is doing well. Her Azam is her health care proxy. Radha Skinner MD [address], [place], [address], [place] - [facility], 11/21/2020 08:59:56 12/10/2022 text/html She is here for annual exam, is doing well. Her Azam is her health care proxy. Radha Skinner MD [address], [place], [address], [place] - [facility], 12/10/2022 09:07:05 OBGyn Episode No OBEpisode recorded.
--- OUTSIDE RECORDS SUMMARY | 2024-09-18 12:34 | XMS_ITS | Encounter Summary ---
Author Organization [facility] Address [address] [place] [address] Care Team Providers Care Aviation Safety Officer Name Role Phone Shirley Borjas MD Primary Care Provider Donald ward Encounter Details Date Type Department Care Team Description 05/11/2022 Paper Maker Report Medical Records [address] [place] [address] Deanna Burks PA-C Social History Tobacco Use [...] on filedocumented in this encounter Care Teams Aviation Safety Officer Relationship Specialty Start Date End Date Shirley Borjas MD PCP - General Internal Medicine 12/22/21 documented as of this encounter
--- OUTSIDE RECORDS SUMMARY | 2024-09-18 12:34 | XMS_ITS | Encounter Summary ---
Author Organization [facility] Address [address] [place] [address] Care Team Providers Care Golf Coach Name Role Phone Aroldo Rojo Primary Care Provider Shirley Gilliland MD Primary Care Provider Donald ward Encounter Details Date Type Department Care Team Description 12/11/2021 Business Doc Medical Records [address] [place] [id number] Abstract, Provider Social History Tobacco Use Types [...] filedocumented in this encounter Care Teams Golf Coach Relationship Specialty Start Date End Date Aroldo Rojo PCP - General 07/15/08 12/21/21 Shirley Borjas MD PCP - General Internal Medicine 12/22/21 documented as of this encounter
== END 2024-09-14 12:03 | disposition home or self-care (01) ==
LOC: HO.HOSX 12:02
PROVIDERS: Visit Provider Physician Assistant
DX: M25.512 Pain in left shoulder (principal); M19.012 Primary osteoarthritis, left shoulder
CPT/HCPCS: 73030; 99212

== ENCOUNTER 2024-12-13 13:23 | Outpatient (AMB) | payer MEDICARE, OTHER, SELFPAY ==
--- NOTE | 2024-12-13 13:27 | A.OFFVIS_ITS ---
Vital Signs 12/13/24 13:28 Height 5 ft 5 in Weight 176 lb 2 oz BMI 29.3 BP 120/70 Blood Pressure Location Rt brachial Position Sitting Pulse 68 Pulse Source Pulse Oximeter Pulse Oximetry (%) 98 Oxygen Delivery Method Room Air Intake Visit Reasons: INP-Dizziness and giddinnes Intake Note: Dizziness and Giddiness Auditing Manager Required: No Accompanied by: Self / Same As Patient Allergies zpack Allergy (Severe, Uncoded 08/28/24 13:42) Diarrhea HPI Comments Details: 74y/o female comes for evaluation of dizziness and feeling off balance. since 2022 she has a sense of imbalance when she moves her head fast. she is doing good whens he swims ( swims 1 mile a day ), fine driving her car . when she moves her head quickly she feels off balance. It is usually in the kitchen or when she is trying to get up from bed and last few seconds to minuted. she has neck stiffness. It started after COVID 2022 , had sinus infections. she went to PT but was told it was not vertigo . .she denies diplopia , tinnitus , hearing, no headaches No head injury she had a severe episode last year- CT brain was normal and she was discharged. 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 Current occupational exposures/hazards: No Cognitive needs: No Hearing needs: No Vision needs: Yes (wears glasses) Physical Exam Const General: cooperative, healthy appearing, comfortable, no acute distress and anxious Nutritional Appearance: average body habitus Orientation/consciousness: patient oriented x3 Eyes Pupils: Equal, round and reactive pupils present Neuro Other: neck tightness - tenderness in dora levator gait- antalgic turns slowly anxious an dhad trouble focusing was tangential General: patient oriented x3, tone normal, moves all extremities and no focal motor deficits Cranial nerves: Yes Facial sensation intact/muscles of mastication intact, Yes Equal, round and reactive pupils present, Yes Bilaterally intact EOM present, Yes Nystagmus not present, Yes Normal facial strength present, Yes Midline tongue present, Yes Symmetric palate elevation present and Yes Ability to bilaterally elevate shoulders present Cognition (Neuro): normal cognition Gait exam (Neuro): Antalgic gait present Motor exam (neuro): 5/5 motor strength present throughout and Normal motor muscle tone present throughout Deep tendon reflexes (DTR's): Right triceps reflex intensity grade: 2+, Left triceps reflex intensity grade: 2+, Rt Biceps (C5, C6): 2+, Left biceps reflex intensity grade: 2+, Right brachioradialis reflex intensity grade: 2+, Left brachioradialis reflex intensity grade: 2+, Right patellar reflex intensity grade: 2+ and Left patellar reflex intensity grade: 2+ Coordination: [id number] test normal Assessment & Plan Assessment & Plan (1) Dizzinesses: Comment: ? vestbular dysfunction . chronic vertigo ? postural hypotension Code(s): R42 - Dizziness and giddiness Category: Medical (2) Cervicalgia: Code(s): M54.2 - Cervicalgia Category: Medical Plan Suggested to increase fluid intake and discuss with PCP Monitor blood pressure PT for neck tightness consider SSRI for anxiety reviewed CTA- no carotid occlusion Orders: Orders PT Evaluation and Treatment Today M54.2 - Cervicalgia Coding Level of Care Code New Pt Level 4 (53417) Diagnoses Dizzinesses R42 Cervicalgia M54.2
[2024-12-13 13:28] VITALS: BP 120/70; PULSE 68; O2SAT 98; BMI 29.3
--- OUTSIDE RECORDS SUMMARY | 2024-12-13 13:50 | XMS_ITS | Clinical Summary ---
Author Organization [facility] Address [address] [facility] [address] [place] [address] Phone Care Team Providers Care Bakery Machine Mechanic Supervisor Name Role Phone Shirley Borjas MD Primary Care Provider Allergies Active Allergy Reactions Criticality Noted Date Comments Azithromycin Nausea And Vomiting 07/26/2006 Other reaction(s): diarrhea Medications ZINC ORAL Take 140 mg by mouth. 05/11/2022 Active amLODIPine (NORVASC) 10 MG tablet Take 1 tablet by mouth every morning. 11/12/2022 Active hydroCHLOROthia zide (HYDRODIURIL) 25 MG tablet Take 1 tablet by mouth every morning. 11/12/2022 Active lovastatin (MEVACOR) 20 MG tablet Take 1 tablet by mouth nightly at bedtime. Active moexipriL (UNIVASC) 15 MG tablet TAKE 1 TABLET BY MOUTH EVERY DAY FOR 90 DAYS DIRECTED 11/15/2022 Active pravastatin (PRAVACHOL) 20 MG tablet Take 1 tablet by mouth every morning. 09/24/2022 Active Active Problems No known active problems Social History Tobacco Use Types Packs/Day Years Used Date Smoking Tobacco: Former Cigarettes Smokeless Tobacco: Never Tobacco Cessation:Counseling Given: Not Answered Education Answer Date Recorded Are you interested in more education? Not on corrine e 12/11/2022 Are you concerned about learning? Not on file 12/11/2022 No 12/11/2022 No 12/11/2022 Digital Access Answer Date Recorded No 12/11/2022 No 12/11/2022 Reliable internet access at home? Not on file 12/11/2022 Device with a working camera? Not on file Comments Unknown Sex and Gender Information Value Date Recorded Sex Assigned at Not on file Legal Sex Female 11:22 AM EDT Gender Identity Not on file Sexual Orientation Not on file Last Filed Vital Signs Vital Sign Reading Time Taken Comments Blood Pressure 146/73 12/11/2022 11:38 AM EDT Pulse 64 12/11/2022 11:38 AM EDT Temperature 36.7 C (98.1 F) 12/11/2022 11:38 AM EDT Respiratory Rate 16 12/11/2022 11:38 AM EDT Oxygen Saturation 98% 12/11/2022 11:38 AM EDT Inhaled Oxygen Concentration - - Weight 79.4 kg (175 lb) 12/11/2022 11:38 AM EDT per pt Height - - Body Mass Index - - Plan of Treatment Health Maintenance Due Date Last Done Comments CREATININE LEVEL 1951 LIPID PANEL 1951 POTASSIUM LEVEL 1951 DEPRESSION SCREENING 1963 SMOKING Hx and SMOKELESS TOBACCO SCREENING 07/24/1964 HEPATITIS C SCREENING 07/24/1969 MAMMOGRAM 1991 COLOGUARD 07/24/1996 COLONOSCOPY 07/24/1996 COLORECTAL CANCER SCREENING 07/24/1996 FIT TEST 07/24/1996 FOBT 07/24/1996 SIGMOIDOSCOPY 07/24/1996 VIRTUAL COLONOSCOPY 07/24/1996 OSTEOPOROSIS SCREENING INITIAL (ONE-TIME) 07/24/2016 COVID-19 VACCINE ( season) 2024 02/14/2022, 08/25/2021, 03/12/2021, Additional history exists RSV VACCINE (1 - 1-dose 75+ series) 07/24/2026 Adult Td,Tdap Booster 11/05/2032 11/05/2022, 013 HEPATITIS A VACCINES Aged Out 07/17/2013, 12/08/19 13 No longer eligible based on patient's age to complete this topic ZOSTER VACCINES Completed 12/06/2018, 0708/2018, 08/31/2018, Additional history exists PNEUMOCOCCAL VACCINES (50+ years) Completed 11/05/2022, 09/02/2016, 04/18/2015 HIB VACCINES Aged Out No longer eligi ble based on patient's age to complete this topic MENINGOCOCCAL VACCINES (ACWY) Aged Out No longer eligible based on patient's age to complete this topic MENINGOCOCCAL VACCINES (B) Aged Out N o longer eligible based on patient's age to complete this topic Medical Devices Not on file Insurance MEDICARE PART A & B [employer] MEDICARE SUPPLEMENT MEDICARE PART A & B [employer] MEDICARE SUPPLEMENT MEDICARE PART A & B [facility] MEDICARE SUPPLEMENT MEDICARE PART A & B [facility] MEDICARE SUPPLEMENT MEDICARE PART A & B [facility] MEDICARE SUPPLEMENT MEDICARE PART A & B [facility] MEDICARE SUPPLEMENT Care Teams Bakery Machine Mechanic Supervisor Relationship Specialty Start Date End Date Shirley Borjas MD PCP - General Internal Medicine 12/11/22 Additional Source Comments The information contained in this document represents components of the legal health record. It is not the complete legal health record.[facility]
--- OUTSIDE RECORDS SUMMARY | 2024-12-13 13:50 | XMS_ITS | Encounter Summary ---
Author Organization [facility] Address [address] [place] [address] Care Team Providers Care Transportation Director Name Role Phone Aroldo Rojo Primary Care Provider Shirley Gilliland MD Primary Care Provider Donald ward Encounter Details Date Type Department Care Team Description 05/31/2020 [facility] Medical Records [address] [place] [id number] Social History Tobacco Use Types Packs/Day Years [...] on filedocumented in this encounter Care Teams Transportation Director Relationship Specialty Start Date End Date Aroldo Rojo PCP - General 07/15/08 12/21/21 Shirley Borjas MD PCP - General Internal Medicine 12/22/21 documented as of this encounter
== END 2024-12-13 14:31 | disposition home or self-care (01) ==
LOC: HO.HSMS 13:24
PROVIDERS: PCP Internal Medicine; Visit Provider Psychiatry & Neurology Neurology
DX: R42 Dizziness and giddiness (principal); M54.2 Cervicalgia
CPT/HCPCS: 99204

== ENCOUNTER → 2024-12-13 13:23 | Outpatient (BNVA) | payer MEDICARE, OTHER, SELFPAY | PROVIDERS: PCP Internal Medicine; Visit Provider Psychiatry & Neurology Neurology | DX: R42 Dizziness and giddiness (principal); M54.2 Cervicalgia; Z86.16 Personal history of COVID-19 | CPT/HCPCS: 99202 ==

== ENCOUNTER 2025-01-12 09:03 | Outpatient (RCR) | payer MEDICARE, OTHER, SELFPAY | END 2025-02-07 10:56 | disposition home or self-care (01) | LOC: HO.PTS 09:03 | PROVIDERS: PCP Internal Medicine; Visit Provider Psychiatry & Neurology Neurology | DX: M54.2 Cervicalgia (principal) | CPT/HCPCS: 97161 ==

== ENCOUNTER 2025-02-02 11:43 | Outpatient (AMB) | payer MEDICARE, OTHER, SELFPAY ==
--- NOTE | 2025-02-02 11:46 | A.OFFVIS_ITS ---
Intake Visit Reasons: INJ-b/l knee pain-last 08/28/24 Intake Note: Jessica is a 74 year old female who presents today for repeat injections for both of her knees, last injections 08/28/24. Allergies zpack Allergy (Severe, Uncoded 08/28/24 13:42) Diarrhea HPI HPI INJ-b/l knee pain-last 08/28/24: Details: Ms. Epperson is a 74-year-old female who presents to the office today for bilater al knee pain. She is going on a trip to [place] and would like cortisone injections in both knees prior to. Her last cortisone injections were on 08/08/2024 which gave her relief. 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 No ecchymosis erythema or joint effusion. Able to perform full range of motion with mild crepitus. No tenderness to palpation medial and lateral joint lines. NVI. Office Procedures AMB Joint Injection/Aspiration Joint Injection/Aspiration Primary Site: right knee Secondary Site: left knee Prep: site was prepped using aseptic technique, ethochloride spray was applied and injection warnings given Injected: 40 mg of, with 3 mL of, 1% plain lidocaine, 0.25% bupivacaine, in the joint and decadron Approach Used: anterolateral Procedure: The patient tolerated the procedure well, but had some pain with the injection and there was some relief with the local anesthesia Coding - Bilateral Large Joint Procedure code (CPT) selection complete Assessment & Plan Assessment & Plan (1) Osteoarthritis of knees, bilateral: Code(s): M17.0 - Bilateral primary osteoarthritis of knee Category: Medical Plan The patient was offered cortisone injections in bilateral knees. The patient was explained the risks, benefits, and alternatives to receiving this injection. After receiving consent for the injection, the patient had the procedure done while in the office today. The patient tolerated the procedure well with no complications. Follow-up will be PRN, or sooner if needed Coding Level of Care Code Est Pt Level 3 (16723) Diagnoses Osteoarthritis of knees, bilateral M17.0 CPT Codes Coding - - Bilateral Large Joint: - Bilateral Large Joint ([id number])
--- OUTSIDE RECORDS SUMMARY | 2025-02-02 12:50 | XMS_ITS | Clinical Summary ---
Author Organization [facility] Address [address] [facility] [address] [place] [address] Phone Care Team Providers Care Pharmacy Intern Name Role Phone Shirley Borjas MD Primary Care Provider [phone] Allergies Active Allergy Reactions Criticality Noted Date [...] COLONOSCOPY 07/24/1996 OSTEOPOROSIS SCREENING INITIAL (ONE-TIME) 07/24/2016 INFLUENZA VACCINE (#1) 2024 , 02/26/2021, 12/15/2019, Additional history exists COVID-19 VACCINE ( season) 2025 02/14/2022, 08/25/2021, 03/12/2021, Additional history exists RSV VACCINE (1 - 1-dose 75+ series) 07/24/2026 Adult Td,Tdap Booster 11/05/2032 11/05/2022, 013 HEPATITIS A VACCINES Aged Out 07/17/2013, 12/08/19 13 No longer eligible based on patient's age to complete this topic ZOSTER VACCINES Completed 12/06/2018, 08/2018, 08/31/2018, Additional history exists PNEUMOCOCCAL VACCINES (50+ [...] file Insurance MEDICARE PART A & B [employer] MEDICARE SUPPLEMENT MEDICARE PART A & B [facility] [employer] MEDICARE SUPPLEMENT MEDICARE PART A & B [facility] MEDICARE SUPPLEMENT MEDICARE PART A & B [facility] MEDICARE SUPPLEMENT MEDICARE PART A & B [facility] MEDICARE SUPPLEMENT MEDICARE PART A & B [facility] MEDICARE SUPPLEMENT Care Teams Pharmacy Intern Relationship Specialty Start Date End Date Shirley Borjas MD PCP - General Internal Medicine 12/11/22 Additional Source Comments The information contained in this document represents components of the legal health record. It is not the complete legal health record.[facility]
== END 2025-02-02 12:06 | disposition home or self-care (01) ==
LOC: HO.HOS 11:43
PROVIDERS: PCP Internal Medicine; Visit Provider Physician Assistant
DX: M17.0 Bilateral primary osteoarthritis of knee (principal)
CPT/HCPCS: 20610

== ENCOUNTER → 2025-02-02 11:43 | Outpatient (BNVA) | payer MEDICARE, OTHER, SELFPAY | PROVIDERS: PCP Internal Medicine; Visit Provider Physician Assistant | DX: M17.0 Bilateral primary osteoarthritis of knee (principal) | CPT/HCPCS: 20610; J0665; J1100; J2003 ==

== ENCOUNTER 2025-02-06 09:27 | Outpatient (REF) | payer MEDICARE, OTHER, SELFPAY ==
[2025-02-06 11:27] LABS: MANUAL DIFF FLAG NO
[2025-02-06 11:35] LABS: Hematocrit 43.7 % (37.0-47.0); Hemoglobin 14.9 g/dl (12.0-16.0); Imm Gran Abs Auto 0.03 X10*3/uL (0.00-0.03); Imm Gran Pct Auto 0.3 % (0.0-0.4); Lymphocytes Absolute Auto 1.8 X10*3/uL (1.2-4.9); Mean Corpuscular HGB Conc 34.1 g/dl (31.0-35.0); Mean Corpuscular Hemoglobin 30.9 pg (27.0-33.0); Mean Corpuscular Volume 90.7 fL (80.0-98.0); NRBC Abs Auto 0.000 X10*3/uL (0.0-0.012); NRBC Pct Auto 0.0 /100WBC (0.0-0.2); Platelet Count 272 X10*3/uL (160-400); Red Blood Count 4.82 X10*6/uL (4.20-5.50); White Blood Count 8.9 X10*3/uL (4.8-10.8)
--- OUTSIDE RECORDS SUMMARY | 2025-02-06 12:09 | XMS_ITS | Data Portability ---
Author Organization [place] - [facility],, RADHA SKINNER MD Address [address] [address] Care Team Providers Care Drive Tester Name Role Phone SOUMYA LEYVA Primary Care Provider Assessment No assessment recorded. Plan of Treatment Reminders Order Date Submit Date Provider Last Modified By Organization Details Last Modified Time Details Appointments None recorded. Lab cytology report, thin prep, smear or scraping, cervical or vaginal 2024 025 [facility] (Centralized Electronic Ordering - All Locations), Patient Can Go To The Location Of Their Choice, [id number] 5 12:16:00 pap test, thinprep, cervical 2022 023 [facility] (Centralized Electronic Ordering - All Locations), Patient Can Go To The Location Of Their Choice, [id number] 3 07:37:29 pap test, thinprep, cervical 2020 021 [facility], Cytopathology Service, [address] [place] [address], [address], 1 07:39:17 pap test, thinprep, cervical 2018 019 [facility], Cytopathology Service, [address] [place] [address], [address], 9 07:35:32 pap test, thinprep, cervical 2016 017 [facility], Cytopathology Service, [address] [place] [address], [address], 7 13:45:59 Referral None recorded. Procedures None recorded. Surgeries None recorded. Imaging MAMMO, screening , digital, bilateral - Breast Aspiratio n and/or Biopsy if needed 2024 025 [facility], [address], [address], [place], [address], 5 10:34:40 bone density 2024 025 [facility] Orders, [address], [address], [place], [address], 5 10:34:40 MAMMO, screening , digital, bilateral - Breast Aspiratio n and/or Biopsy if needed 2022 023 [facility] ([facility] [facility]), [address] [place] [address], [address], 3 09:26:31 bone density 2022 023 [facility], [address] [place] [address], [address], 5 07:44:16 MAMMO, screening , digital, bilateral 2020 021 [facility], [address] [place] [address], [address], 1 18:06:43 bone density [address] [place] [address], [address] [place] [address], [address], 2 08:44:20 MAMMO, screening , digital, bilateral 2018 019 [facility], [address] [place] [address], [address], 0 07:31:31 bone density 2018 019 [email or web address], [address] [facility], [address], 0 07:54:53 MAMMO, screening , digital, bilateral 2016 017 [facility] ([facility]), [address] [facility], [place], [address], 8 12:02:10 Medication Orders None recorded. Patient TargetsNo targets recorded. Patient Instructions Encounter Date Encounter Id Patient Instructions Last Modified By Organization Details Last Modified Time 11/11/2016 [id number] advance directiv es: care instructions [email or web address] Not [...] questions answered. Not available 11/11/2016 08:39:22 11/15/2018 [id number] atrophic vaginit is: care instructions Not available [...] questions answered. Not available 11/15/2018 11:02:15 11/21/2020 [id number] atrophic vaginit is: care instructions Not available [...] the breast. Not available 11/21/2020 08:59:29 12/10/2022 [id number] atrophic vaginit is: care instructions Not available [...] in the breast. Not available 12/10/2022 08:44:03 12/12/2024 [id number] atrophic vaginit is: care instructions Not available 12/12/2024 09:01:05 learning about healthy weight Not available 12/12/2024 09:01:05 She is here for annual, she recently lost her to leukemia, is grieving appropriately. _ Note from 2022: She is here for annual exam, is doing well. Her Azam is her health care proxy. She appears to be doing well. Monthly self breast exam was taught, and stressed, and is advised to call if she discovers any new mass in the breast. Not available 12/12/2024 09:01:15 Reason for Referral None Reported. Results Created Date Observation Date Name Description Value Unit Range Abnormal Flag Note LastModifiedBy Organization Detail LastModifiedTime 11/12/19 17 11/11/2016 pap, LB [id number] ThinP rep Pap, Image d: NEGAT THONY [...] ASCUS . LPS neg. z12.4 Not Available [facility], Cytopathology Service [address] [facility], [place], [address], 11/12/2016 13:45:59 11/16/19 19 11/15/2018 pap, LB [id number] ThinP rep Pap, Image d: NEGAT THONY FOR SQUAM OUS INTRA EPITH ELIAL LESIO N AND MALIG JOANN . Atrop hy. Soumya Sanchez , CT( CP) (Case elect lisa mark negra d 11 17 2018) ADEQU ACY: Satis facto ry Endoc ervic al/tr ansfo rmati on zone compo nent prese nt. SOURC E: ThinP rep Pap HPV IF ASCUS , Cervi olvin, Image d CLINI OLVIN INFOR MATIO N: HPV If Diagn osis of ASCUS . Z12.4 , MENOP AUSE, LPS = NEG Not Available [facility], [facility] Service [address] [place], [address], 11/17/2018 14:20:42 11/22/19 21 11/21/2020 PAP1C ASE [id number] ThinP rep Pap, Image d: NEGAT THONY [...] ASCUS . Lps neg, Z12.4 Not Available [facility] Service [address] [place], [address], 11/25/2020 11:00:41 12/11/19 23 12/10/2022 [facility] CYTOL OGY results Patie nt Name: AJ MINOR Fabian nt : 1950 (Age: 72) Lab Acces gabo #: [id number] Colle ction Date: 2022 Acces gabo Date: 2022 Sign Out Date: 2022 Tissu e Sourc e: 1: THINP REP VP RHEUMATOLOGY PAP TEST, CERVI OLVIN: Final Diagn osis: NEGAT THONY FOR INTRA EPITH ELIAL LESIO N OR MALIG JOANN . Satis facto ry for evalu ation [...] Syste m with merly pearce or vaughn díaz Perfo rmed at [facility] ate Refer ence [facility] Cytol ogy, [address] [place] Clini olvin Histo ry (othe r): Z12.4 , LPS 11/21 NEG, KEN SAMSON N Phone #: [phone], On-Ca ll Patho logis t: [id number] Not Available [facility] (Centralized Electronic Ordering - All Locations) Patient Can Go To The Location Of Their Choice, [id number] 12/14/2022 11:16:37 12/13/1912/14/2024 IGP, RFX APTIM A HPV ASCU diagnosis: Conrad BHANDARI FOR INTRA EPITH ELIAL LESIO N OR KWESI DAVID . CELLU L[facility] IATED WITH ATROP HY ARE PRESE NT. Not Available [facility] ([facility]) [address] [place], [address], 12/14/2024 12:16:00 12/13/1912/14/2024 IGP, RFX APTIM A HPV ASCU specimen adequacy: Conrad funez Satis factadrianna charlton for evalu ation . Endoc ervic al compo nent may not be disti nguis hed in cases of atrop hy. Not Available [facility] ([facility]) [address] [place], [address], 12/14/2024 12:16:00 12/13/19 25 12/14/2024 IGP, RFX APTIM A HPV ASCU clinician provided ICD10: Conrad funez Z12.4 Not Available [facility] ([facility]) [address] [place], [address], 12/14/2024 12:16:00 12/13/19 25 12/14/2024 IGP, RFX APTIM A HPV ASCU performed by: Conrad Ferro Prior , Cytol ogist (ASCP ) Not Available [facility] ([facility]) [address] [place], [address], 12/14/2024 12:16:00 12/13/19 25 12/14/2024 IGP, RFX APTIM A HPV ASCU . . Not Available [facility] ([facility]) [address] [place], [address], 12/14/2024 12:16:00 12/13/19 25 12/14/2024 IGP, RFX APTIM A HPV ASCU note: Commen t The Pap smear is a scree brina test desig magdalene to aid in the detec tion of destiny ligna nt and malig nant condi tions of the uteri ne cervi x. It is not a diagn ostic proce dure and shoul d not be used as the sole means of detec ting cervi olvin cance r. Both false -posi tive and false -nega tive repor ts do occur . Not Available [facility] ([facility]) [address] [facility], [place], [address], 12/14/2024 12:16:00 12/13/19 25 12/14/2024 IGP, RFX APTIM A HPV ASCU test methodology: Commen t This liqui d based ThinP rep(R ) pap test was scree magdalene with the use of an image guide d systart m. Not Available [facility] ([facility]) [address] [place], [address], 12/14/2024 12:16:00 12/13/19 25 12/14/2024 IGP, RFX APTIM A HPV ASCU . Commen t The HPV DNA refle x crite kevin were not met with this speci men resul t there fore, no HPV testi ng was perfo rmed. Not Available [facility] ([facility]) [address] [place], [address], 12/14/2024 12:16:00 09/02/19 18 08/31/2017 MAMMO , scree brina, digit al, bilat eral No observ ation record ed. [facility] ([facility]) [address] [place], [address], 09/02/2017 09:29:55 09/08/19 19 09/07/2018 MAMMO , scree brina, digit al, bilat eral No observ ation record ed. [email or web address] Not Available 2018 09:09:02 09/09/19 19 09/07/2018 MAMMO , scree brina, digit al, bilat eral No observ ation record ed. [facility] ([facility]) [address] [place], [address], 09/08/2018 08:48:23 11/29/19 20 11/28/2019 MAMMO , scree brina, digit al, bilat eral No observ ation record ed. Not Available 11/02 08:12:57 12/03/19 21 12/02/2020 MAMMO , scree brina, digit al, bilat eral No observ ation record ed. Not Available 07/2020 08:13:17 12/04/19 21 12/02/2020 MAMMO , scree brina, digit al, bilat eral No observ ation record ed. [facility] [address] [place], [address], 12/03/2020 14:32:15 12/11/19 22 12/10/2021 MAMMO , scree brina, digit al, bilat eral No observ ation record ed. [facility] ([facility]) [address] [facility] [place], [address], 12/10/2021 12:13:04 12/18/19 23 12/17/2022 MAMMO , scree brina, digit al, bilat eral No observ ation [facility] ed. [facility] [address] [facility] [place], [address], 12/28/2022 10:55:21 12/29/19 23 12/17/2022 MAMMO , scree brina, digit al, bilat eral No observ ation record ed. [facility] ([facility]) [address] [place], [address], 12/28/2022 09:39:32 Result Notes None recorded. Problems Name Problem SNOMED Code Status Onset Date Resolution Date Notes Provider Name and Address Organization Details Recorded Time Benign essential hypertension 5363558 Active Not Available [facility] 3 03:01:07 Vitamin D deficiency 31302812 Active 2009 Radha Skinner MD [address] [facility],[address], [place], [address] , [place] - [facility], 6 10:13:44 Problem Notes None recorded. Procedures Surgical History Date Name Laterality Status Provider Name and Address Organization Details Recorded Time 08/03/19 25 Most Recent Mammogram completed Stacey Burt [place] - [facility], 12/12/2024 08:56:41 06/03/19 13 Rep dev, urinary, w/sling completed Radha Skinner MD [address] [place] [address],[address], [place], [address], [place] - [facility], 11/08/2013 08:25:57 05/03/18 72 Tonsillectomy completed Stacey Burt [place] - [facility], 11/07/2012 14:14:42 05/03/18 52 Oophorectomy completed Stacey Burt [place] - [facility], 11/07/2012 14:14:42 Imaging Results None recorded. Procedure Notes None recorded. Medical Equipment None Reported. Allergies Allergen ID Allergen Name Allergen Category Reaction Reaction Severity Criticality Documentation Date Start Date Code Code System Note Provider Name and Address Organization Details Recorded Time 8962 Zithromax medicatio n nausea Not available Not available 11/07/201219637 4 RxNorm hira rgic Stacey Carmel reyna [place] - [facility], 3 14:14:43 Medications Name Sig Start Date Stop Date Status Note LastModified by Organization Details LastModified Time moexipril 15 mg-hydrochl orothiazide 25 mg tablet TAKE 1 TABLET BY MOUTH EVERY DAY 11/15 completed Not Available Not Available Not Available Klor-Con 10 mEq tablet,exte nded release active Not Available Not Available Not Available cetirizine 10 mg tablet TAKE 1 TABLET BY MOUTH EVERY DAY 12/12 completed Not Available Not Available Not Available atorvastati n 10 mg tablet TAKE 1 TABLET BY MOUTH EVERY DAY 11/21 completed Not Available Not Available Not Available atovaquone 250 mg-proguani l 100 mg tablet active Not Available Not Available Not Available prednisone 20 mg tablet TAKE 2 TABLETS BY MOUTH ONCE DAILY FOR 5 DAYS 12/12 completed Not Available Not Available Not Available [...] Not Available Not Available No t Available erythromyci n 5 mg/gram (0.5 %) eye ointment APPLY 0.5 INCH IN BOTH EYES 3 TIMES A DAY FOR 7 DAYS active Not Available Not Available No t Available moexipril 15 mg tablet TAKE 1 TABLET BY MOUTH DAILY active Not Available Not Available No t Available Vivotif Jeanne Vaccine 2 billion unit capsule,del ayed release 12/12 completed Not Available Not Available Not Available moexipril 7.5 mg-hydrochl orothiazide 12.5 mg tablet 11/15 completed Not Available Not Available Not Available pravastatin 20 mg tablet TAKE 1 TABLET BY MOUTH DAILY active Not Available Not Available No t Available hydrochloro thiazide 25 mg tablet TAKE 1 TABLET BY MOUTH EVERY MORNING active Not Available Not Available No t Available ibuprofen 600 mg tablet active Not Available Not Available Not Available lovastatin 20 mg tablet TAKE 1 TABLET EVERY DAY 12/10 completed Not Available Not Available Not Available doxycycline hyclate 100 mg tablet active Not Available Not Available No t Available amoxicillin 500 mg-potgustavoiu m clavulanate 125 mg tablet 11/15 completed Not Available Not Available Not Available cyclobenzap rine 5 mg tablet 11/11 completed Not Available Not Available Not Available Co Q-10 active Not Available Not Avail able Not Available Zostavax (PF) 19,400 unit/0.65 mL subcutaneou s suspension active Not Available Not Available N ot Available Afluria (PF) 45 mcg(15 mcg x 3)/0.5 mL [...] Available Not Available Vitals Date Recorded Body height Body mass index (BMI) Body weight Heart rate Systolic And Diastolic Provider Name and Address Organization Details Last Updated DateTime 11/11/2016 166.37 cm 28.2 kg/m2 32792.17 g 66 /min 141/68 mm[Hg] Stacey Damico in [facility], 11/11/2016 08:15:47 Date Recorded Body weight Body mass index (BMI) Body height Heart rate Systolic And Diastolic Provider Name and Address Organization Details Last Updated DateTime 11/15/2018 03551.42 g 27.9 kg/m2 166.37 cm 67 /min 137/57 mm[Hg] Stacey Damico in [facility], 11/15/2018 08:09:40 Date Recorded Body height Body mass index (BMI) Body weight Heart rate Systolic And Diastolic Provider Name and Address Organization Details Last Updated DateTime 11/21/2020 166.37 cm 29.2 kg/m2 31473.44 g 70 /min 132/60 mm[Hg] Jayne Damico in [facility], 11/21/2020 08:50:12 Date Recorded Body weight Body mass index (BMI) Body height Provider Name and Address Organization Details Last Updated DateTime 12/10/2022 29128.66 g 28.7 kg/m2 166.37 cm Jayne Black [place] - [facility], 12/10/2022 08:04:13 Date Recorded Body weight Body mass index (BMI) Body height Heart rate Systolic And Diastolic Provider Name and Address Organization Details Last Updated DateTime 12/12/2024 04951.3 g 29.4 kg/m2 162.56 cm 69 /min 139/63 mm[Hg] Stacey Carmel MOLINA - [facility], 12/12/2024 08:52:11 Social History Question Answer Notes LastModified by Organizat ion Details LastModified Time Tobacco Smoking Status Former Smoker Not Available [facility] 03/05/2020 03:19:39 Do You Have An Advance Directive? No Information n ot available 11/21/2020 How Many Years Have You Consumed Alcohol? 50 Information not available 12/12/2024 Are You Blind Or Do You Have Difficulty Seeing? No [id number] Information n ot available 03/05/2020 Is Blood [...] Do You Have Serious Difficulty Hearing? No [id number] Information not available 03/05/2020 What Type Of Diet Are You Following? REGULAR [id number] Information n ot available 03/05/2020 Which Illicit Or Recreational Drugs Have You Used? No [id number] Information not available 03/05/2020 Do You Reside In Or Have You Traveled To An Area Where Ebola Virus Transmission Is Active? No [id number] Information not available 03/05/2020 Education Post Graduate Information not available 11/07/2012 What Is The Highest Grade Or Level Of School You Have Completed Or The Highest Degree You Have Received? [id number] Information not available 12/12/2024 How Many Days In The Past Year [...] Date Of Your Most Recent Tobacco Screening? 12/12/2024 Information not available 12/12/2024 What Is Your Relationship Status? Information not available 11/21/2020 Are You Sexually Active? Yes [id number] Information not available 03/05/2020 Do You Have Smoke And Carbon Monoxide Detectors In Your Home? Yes Information not available 11/21/2020 How Much Tobacco Do You Smoke? No [id number] Information not available 03/05/2020 General Stress Level Low Information not available 11/15/2018 Do You Use Sunscreen Routinely? Yes Information not available 11/21/2020 How Many Years Have You Smoked Tobacco? 1 [id number] Information not available 03/05/2020 Do You Have Difficulty Walking Or Climbing Stairs? No [id number] Information not available 03/05/2020 Have You Recently (within The Last 12 Weeks, Or During A Current ) Traveled To Or Lived In A Zika-affected Area? No Information not available 11/12/2015 How Many Days In The Past Year Have You Consumed 4 Or More Drinks? 0 Information not available 12/12/2024 Sex: Female Functional Status Question Answer Note LastModified by Organizat ion Details LastModified Time Do you use any illicit or recreational drugs? No Information not available 11/21/2020 Do you or have you ever used any other forms of tobacco or nicotine? No Information not available 11/21/2020 What is your level of alcohol consumption? Occasional [id number] Information not available 03/05/2020 Are you currently employed? No Information not available 12/10/2022 Do you have difficulty doing errands alone? 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 No [id number] Information not available 03/05/2020 What is your exercise level? Heavy [id number] Information not available 03/05/2020 Mental Status Question Answer Note LastModified by Organizat ion Details LastModified Time Do you feel stressed (tense, restless, nervous, or anxious, or unable to sleep at night)? [id number] of leukemia. Information not available 12/12/2024 Do you have difficulty concentrating, remembering or making decisions? No [id number] Information not available 03/05/2020 Family History Relationship Description Onset Age of this Age Resolved Age Notes LastModified by Organization Details LastModified Time Maternal Grandmother Malignant neoplastic disease 85 previo usly record ed as Cancer Not available 11/09/2014 08:19:01 Father Diabetes mellitus previo usly record ed as Diabet es Not available 11/09/2014 08:19:01 Brother Myocardial infarction previo usly record ed as Heart Attack ([place]) x2 Not available 11/09/2014 08:19:01 Maternal Grandfather Malignant neoplastic disease previo usly record ed as Cancer Not available 11/09/2014 08:19:01 Medical History Condition Response Anesthesia complications N High Blood Pressure Y Candidate for MyRisk panel N Autoimmune Condition N Thyroid Problems N Kidney or Bladder Problems Y Depression N GI Problems N Lung Disease N Defects or Inherited Disease N Anemia N History of Ovarian Cancer N History of Breast Cancer N REMEDIOS exposure N BRCA testing in past N Osteopenia N Psychiatric Illness N Diabetes N Anxiety Disorder N Arthritis Y Headaches or Migraines N Infertility N Asthma N History of Cancer N Endometriosis N Hepatitis N Heart Disease N Hypertension Y Osteoporosis N Gynecological History Statement/Question Response If Post Menopausal, Age at Menopause 60 Age at Menarche 13 Most Recent Mammogram 08/02/2024 Age at First Child 36 Obstetrics History GPAL:G 2 P 0 0 0 2 Type Value Living 2 Total 2 Immunizations Vaccine Type Date Status Note Provider Nam e and Address Organization Details Recorded Time polio, unspecified formulation 3 completed Stacey Meczywor null, [place] - [facility], 11/09/2014 08:11:37 Hep A, adult 4 completed Stacey Meczywor null, [place] - [facility], 11/09/2014 08:11:37 typhoid, oral 3 completed Stacey Meczywor null, [place] - [facility], 11/09/2014 08:11:37 Tdap 3 completed Stacey Meczywor null, [place] - [facility], 11/09/2014 08:11:37 Influenza, split virus, quadrivalent, preservative 5 completed Stacey Meczywor null, [place] - [facility], 11/12/2015 08:17:10 pneumococcal, unspecified formulation 5 completed Stacey Meczywor null, [place] - [facility], 11/12/2015 08:17:55 zoster live 5 completed Stacey Meczywor null, [place] - [facility], 11/12/2015 08:18:21 zoster live 9 completed Stacey Meczywor null, [place] - [facility], 11/15/2018 08:12:22 Influenza, split virus, quadrivalent, preservative 8 completed Stacey Meczywor null, [place] - [facility], 11/15/2018 08:12:47 zoster recombinant 9 completed Stacey Meczywor null, [place] - [facility], 12/10/2022 08:03:56 zoster recombinant 9 completed Stacey Meczywor null, [place] - [facility], 12/10/2022 08:03:56 Influenza, high-dose, quadrivalent, PF 2 completed Stacey Meczywor null, [place] - [facility], 12/10/2022 08:03:56 COVID-19, mRNA, LNP-S, PF, 100 mcg/0.5mL dose or 50 mcg/0.25mL dose 1 completed Stacey Meczywor null, [place] - [facility], 12/10/2022 08:03:57 COVID-19, mRNA, LNP-S, PF, 100 mcg/0.5mL dose or 50 mcg/0.25mL dose 1 completed Stacey Meczywor null, [place] - [facility], 12/10/2022 08:03:57 COVID-19, mRNA, LNP-S, PF, 100 mcg/0.5mL dose or 50 mcg/0.25mL dose 2 completed Stacey Meczywor null, [place] - [facility], 12/10/2022 08:03:57 COVID-19, mRNA, LNP-S, PF, 100 mcg/0.5mL dose or 50 mcg/0.25mL dose 1 completed Stacey Meczywor null, [place] - [facility], 12/10/2022 08:03:57 Pneumococcal conjugate PCV20, polysaccharide [id number] conjugate, adjuvant, PF 3 completed Stacey Meczywor null, [place] - [facility], 12/10/2022 08:03:57 COVID-19, mRNA, LNP-S, bivalent, PF, 50 mcg/0.5 mL or 25mcg/0.25 mL dose 2 completed Stacey Meczywor null, [place] - [facility], 12/10/2022 08:03:57 influenza, unspecified formulation 2 completed Stacey Meczywor null, [place] - [facility], 12/10/2022 08:03:57 Tdap 3 completed Stacey Meczywor null, [place] - [facility], 12/10/2022 08:03:57 Influenza, split virus, trivalent, preservative 1 completed Stacey Meczywor null, [place] [facility], 12/10/2022 08:03:57 Influenza, split virus, trivalent, PF 7 completed Stacey Meczywor null, [place] - [facility], 12/10/2022 08:03:57 COVID-19, mRNA, LNP-S, PF, 50 mcg/0.5 mL 4 completed Not Available [facility] 12/12/2024 08:46:54 Influenza, high-dose, quadrivalent, PF 3 completed Not Available [facility] 12/12/2024 08:46:54 Influenza, high-dose, trivalent, PF 4 completed Not Available [facility] 12/12/2024 08:46:54 COVID-19, mRNA, LNP-S, PF, 50 mcg/0.5 mL 3 completed Not Available [facility] 12/12/2024 08:46:54 Past Encounters Encounter ID Performer Location Encounter Start Date Encounter Closed Date Diagnosis/Indication Diagnosis SNOMED-CT Code Diagnosis ICD10 Code Diagnosis IMO Codes Diagnosis Note [id number] MD RADHA Sorensen MD [address] [facility] [place] [address] 11/07/2012 13:42:33 11/07/2012 16:26:55 [id number] MD RADHA Sorensen MD [address] [facility] [place] [address] 11/08/2013 08:01:42 11/08/2013 10:52:29 Specialized medical examination [id number] Screening for malignant neoplasm of rectum [id number] Screening mammography [id number] MD RADHA Sorensen MD [address] [place], [place] [address]Art [facility] [place] [address] 11/09/2014 07:56:07 11/09/2014 12:57:19 Specialized medical examination [id number] Screening for malignant neoplasm of rectum 433690209 Screening mammography [id number] MD RADHA Sorensen MD [address] [place], [place] [address]Art [facility] [place] [address] 11/12/2015 08:08:55 11/12/2015 11:13:43 Specialized medical examination [id number] Z01.419 Screening for malignant neoplasm of rectum 452424725 Z12.12 Screening mammography 24 753316 Z12.31 Menopausal syndrome 1237 24423 N95.9 [id number] MD RADHA Sorensen MD [address] [place] [address] [place] [address] 12/11/2015 09:02:33 12/11/2015 10:53:48 Osteopenia [id number] M85.852 Vitamin D deficiency 347 77375 E55.9 [id number] MD RADHA Sorensen MD [address] [place], [place] [address] [address] 11/11/2016 07:58:55 11/11/2016 09:52:37 Screening for malignant neoplasm of cervix 425647322 Z12.4 Screening mammography 24 594026 Z12.31 Cares for self 290278328 Z76.89 [id number] MD RADHA Sorensen MD [address] [place] [address] [place] [address] 11/15/2018 07:55:22 11/15/2018 11:17:51 Screening for malignant neoplasm of cervix 223871176 Z12.4 Screening mammography 24 033909 Z12.31 Screening for osteoporosis 423641976 Z13.820 [id number] MD RADHA Sorensen MD [address] [place] [address] [place] [address] 11/21/2020 08:18:49 11/21/2020 10:40:27 Screening for malignant neoplasm of cervix 388334667 Z12.4 Screening mammography 24 000440 Z12.31 Screening for osteoporosis 906789748 N95.8 [id number] MD RADHA Sorensen MD [address] [facility] [place] [address] 12/10/2022 08:01:35 12/10/2022 09:31:36 Screening for malignant neoplasm of cervix 803322664 Z12.4 Screening mammography 24 676787 Z12.31 Screening for osteoporosis 715408998 N95.8 [id number] MD RADHA Sorensen MD [address] [facility] [place] [address] 12/12/2024 08:41:31 12/12/2024 10:34:40 Screening for malignant neoplasm of cervix 444548954 Z12.4 Screening mammography 24 143458 Z12.31 Screening for osteoporosis 972282572 N95.8 Health Concerns Section Related Observation LastModified by Organization Detai ls LastModified Time None Recorded Concern Status LastModified by Organization Details LastModified Time None Recorded Advance Directives Directive N: Payers Insurance Date Sequence Insurance Name Policy Number Policy Guajardo Covered Member ID Guajardo Member ID Guarantor Name 11/21/2020 1 [employer] - SENIOR SERVICES PLAN F (MEDICARE SUPPLEMENT) [id number] Jessica Schwamb [id number] Jessica Schwamb 11/21/2020 1 [place] Jessica Schwamb [id number] Jessica Schwamb 12/09/2024 2 [employer] - SENIOR SERVICES PLAN F (MEDICARE SUPPLEMENT) [id number] Jessica Schwamb [id number] Jessica Schwamb 12/09/2024 1 [place] Jessica W Schwamb [id number] Jessica Schwamb 11/21/2020 1 [employer] - GIC (INDEMNITY) [id number] Jessica Schwamb [id number] Jessica Schwamb Notes Date Note Type Note Provider Name and Address Organization Details Recorded Time 11/11/2016 text/html She is here for annual exam, is doing well. Bone density of -1.2 last year. Radha Skinner MD [address], [place], [address], [place] [facility], 11/11/2016 09:55:19 11/15/2018 text/html She is here for annual exam, is doing well. Her Azam is her health care proxy. Radha Skinner MD [address], [place], [address], [place] [facility], 11/15/2018 11:02:34 11/21/2020 text/html She is here for annual exam, is doing well. Her Azam is her health care proxy. Radha Skinner MD [address], [place], [address], [place] [facility], 11/21/2020 08:59:56 12/10/2022 text/html She is here for annual exam, is doing well. Her Azam is her health care proxy. Radha Skinner MD [address], [place], [address], [employer] [facility], 12/10/2022 09:07:05 12/12/2024 text/html She is here for annual, she recently lost her to leukemia, is grieving appropriately. Note from 2022: She is here for annual exam, is doing well. Her Azam is her health care proxy. Radha Skinner MD [address], [place], [address], [employer] [facility], 12/12/2024 09:25:16 OBGyn Episode No OBEpisode recorded.
[2025-02-06 12:16] LABS: Alanine Aminotransferase 23 U/L (0-31); Albumin Level 4.8 g/dL (3.5-5.0); Alkaline Phosphatase 84 U/L (39-117); Anion Gap 15 (12-20); Aspartate Amino Transferase 33 U/L (5-31); Blood Urea Nitrogen 15 mg/dL (9-16); Calcium 9.8 mg/dL (8.4-10.2); Carbon Dioxide 29 mmol/L (22-29); Chloride 101 mmol/L (96-108); Cholesterol 251 mg/dL (<200); Estimated Glomerular Filt Rate > 60; HDL Cholesterol 113 mg/dL (>40); Potassium 3.3 mmol/L (3.3-5.1); Sodium 142 mmol/L (135-145); Total Protein 7.9 g/dL (6.5-8.0); Triglycerides 85 mg/dL (<150)
[2025-02-11 12:28] LABS: VITAMIN D (1,25 OH) D3 49 pg/mL; Vit D (1,25-Dihydroxy) Total 49 pg/mL (18-72); Vitamin D (1,25 OH) D2 <8 pg/mL
== END 2025-02-06 09:28 | disposition home or self-care (01) ==
LOC: HO.WFDLDS 09:27
PROVIDERS: PCP Internal Medicine; Visit Provider Internal Medicine
DX: I10 Essential (primary) hypertension (principal); E78.5 Hyperlipidemia, unspecified; R73.03 Prediabetes; H81.10 Benign paroxysmal vertigo, unspecified ear; M25.50 Pain in unspecified joint; R53.83 Other fatigue; Z79.899 Other long term (current) drug therapy
CPT/HCPCS: 36415; 80053; 80061; 82652; 84443; 85025; 96127; 99212

== ENCOUNTER 2025-02-06 09:27 | Outpatient (AMB) | payer MEDICARE, OTHER, SELFPAY ==
--- NOTE | 2025-02-06 09:32 | MHC.PC.OV ---
Vital Signs 02/06/25 09:35 Height 5 ft 5 in Weight 170 lb BMI 28.3 BP 128/72 Blood Pressure Location Lt brachial Position Sitting Respiration 14 Pulse 88 Pulse Source Pulse Oximeter Pulse Oximetry (%) 98 Oxygen Delivery Method Room Air Intake Visit Reasons: BP follow up Intake Note: Blood pressure follow up [employer] Required: No Allergies zpack Allergy (Severe, Uncoded 02/06/25 09:35) Diarrhea Tobacco use date assessed: 07/18/24 Fall risk assessment: 1 Fall in past year Last assessed Fall Risk: 02/06/25 Dental Screening Dental Screen Date: 07/18/24 HPI HPI Comments History of Present Illness Details The patient is a 74 year old female with a past medical history of hypertension, hyperlipidemia, RAMONE, osteoarthritis, presenting for follow up Cardiovascular: On Norvasc 10 mg daily, moexipril 15 mg daily, hydrochlorothiazide 25 mg daily, pravastatin, Co Q10. She denies chest pain, palpitations. No exertional dyspnea. In 2022 experienced some palpitations. Saw Cardiology Dr. West. She had a heart monitor study without worrisome arrhythmia Neuro: Stable vertigo. She has been having issues with vertigo since January 2023. Did vestibular rehab, still having balance issues She has had a nuclear stress test, echo and MRI. She was seen in the ER on November 29 2023 after presenting for dizziness. It had worsened for the month prior. Precipitated by head movements. ACS work up negative. Troponin 14. CT without acute cranial pathology and CTA without proximal occlusion or high-grade stenosis in the major arteries of the head and neck. MSK: Bilateral shoulder pain, left>right. bilateral knee pain. No swelling or redness. Does a lot of yard work and gardening and swims regularly ENT -Has seen Dr Colin RAMONE: On CPAP. Mammo 06/23/2024 Cologuard 01/2022 DXA ROS see HPI PHYSICAL EXAM: GENERAL: Alert and oriented x 3. NAD EYES: EOMI. Anicteric. HENT: Moist mucous membranes. No scleral icterus. No cervical lymphadenopathy. LUNGS: Clear to auscultation bilaterally. CARDIOVASCULAR: Regular rate and rhythm. No murmur. No JVD. ABDOMEN: Soft, non-tender +bs EXTREMITIES: No edema. Non-tender. SKIN: Scattered nevi Warm. NEUROLOGIC: No focal neurological deficits. CN II-XII grossly intact PSYCHIATRIC: Cooperative. Appropriate mood and affect. 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 1. Little interest or pleasure in doing things: not at all 2. Feeling down, depressed, or hopeless: not at all 3. Trouble falling or staying asleep, or sleeping too much: not at all 4. Feeling tired or having little energy: not at all 5. Poor appetite or overeating: not at all 6. Feeling bad about yourself - or that you are a failure or have let yourself or your family down: not at all 7. Trouble concentrating on things, such as reading the newspaper or watching television: not at all 8. Moving or speaking so slowly that other people could have noticed. Or the opposite - being so fidgety or restless that you have been moving around a lot more than usual: not at all 9. Thoughts that you would be better off or of hurting yourself in some way: not at all Total score: 0 Depression Screening Interpretation: Negative Depression Screening Done: Yes 67287 - PHQ-9 Billing: Yes Source: Developed by Drs. Todd Coombs, Evangelina Galvin, Morgan Grant and colleagues, with an educational dena from [employer]. Thrive Questionnaire Date Thrive assessed: 01/30/25 I am a: Patient What is your living situation today?: I have a steady place to live Within the past 12 months, did the food you bought not last and you didn't have the money to get more?: Never true Within the past 12 months, did you worry whether your food would run out before you got money to buy more?: Never true Do you have trouble paying for medicines?: No Do you have trouble getting transportation to medical appointments?: No Do you have trouble paying your heating and electricity bill?: No Do you have trouble taking care of your child, family member or friend?: No Do you have trouble with day-to-day activities such as bathing, preparing meals, shopping, managing finances, etc.?: No Are you currently unemployed and looking for a job?: No Are you interested in more education?: No Please select the resources that you would like help with: None Currently or been in a relationship where the following occur: No concerns reported THRIVE Score: 0 AUDIT C Alcohol Use Questionnaire (AUDIT-C) 1. How often do you have a drink containing alcohol?: 2-4 times a month 2. How many drinks containing alcohol do you have on a typical day when you are drinking?: 1 or 2 3. How often do you have six or more drinks on one occasion?: Never Total Score: 2 YUNIOR-7 AMB Questionnaire YUNIOR-7 Date YUNIOR - 7 assessed: 01/07/24 Feeling nervous, anxious, or on edge: 0 = Not at all Not being able to stop or control worryin = Not at all Worrying too much about different things: 1 = Several days Trouble relaxin = Not at all Being so restless that it is hard to sit still: 0 = Not at all Becoming easily annoyed or irritable: 0 = Not at all Feeling afraid as if something awful might happen: 0 = Not at all Total YUNIOR-7 score (0-4 normal; 5-9 mild; 10-14 moderate; 15-21 severe): 1 Source: Developed by Drs. Todd Coombs, Evangelina Galvin, Morgan Grant and colleagues, with an educational dena from [employer]. Physical exam (Primary Care) Vital Signs: Last Vital Signs Pulse 88 02/06/25 09:35 Resp 14 02/06/25 09:35 BP 128/72 02/06/25 09:35 Pulse Ox 98 02/06/25 09:35 Oxygen Delivery Method Room Air 02/06/25 09:35 BMI result Body Mass Index 28.3 Tobacco/Smoking Status: Tobacco use Status Tobacco use date assessed 07/18/24 02/06/25 09:33 Patient Tobacco Use Status Former Tobacco user 02/06/25 09:33 e-Cigarette/Vaping Use Never Used 02/06/25 09:33 PHQ-9: PHQ-9 Score PHQ-9: Total score 0 02/06/25 09:52 Depression Screening Interpretation: Negative Thrive Assessment: Date of Thrive Assessment Date Thrive assessed 01/30/25 02/06/25 09:33 Currently or been in a relationship where the following occur: No concerns reported Coding Level of Care Code Est Pt Level 4 (05502) Complex EM visit Add On G2211 Diagnoses Primary hypertension I10 Hypertension type: primary hypertension Hyperlipidemia, unspecified hyperlipidemia type E78.5 Hyperlipidemia type: unspecified Benign paroxysmal positional vertigo, unspecified laterality H81.10 Laterality: unspecified laterality Arthralgia, unspecified joint M25.50 Joint pain location: unspecified Additional Codes PHQ-9 - 72242 - PHQ-9 Billing: Yes ([id number]) Assessment & Plan Assessment & Plan (1) Hypertension: Code(s): I10 - Essential (primary) hypertension Category: Medical Qualifiers: Hypertension type: primary hypertension Qualified Code(s): I10 - Essential (primary) hypertension (2) Hyperlipidemia: Code(s): E78.5 - Hyperlipidemia, unspecified Category: Medical Qualifiers: Hyperlipidemia type: unspecified Qualified Code(s): E78.5 - Hyperlipidemia, unspecified (3) BPPV (benign paroxysmal positional vertigo): Code(s): H81.10 - Benign paroxysmal vertigo, unspecified ear Category: Medical Qualifiers: Laterality: unspecified laterality Qualified Code(s): H81.10 - Benign paroxysmal vertigo, unspecified ear (4) Joint pain: Code(s): M25.50 - Pain in unspecified joint Category: Medical Qualifiers: Joint pain location: unspecified Qualified Code(s): M25.50 - Pain in unspecified joint Plan 74 year old for follow up HTN-controlled on current medications OA is stable Cologuard due and ordered Orders: Orders Comprehensive Met. Panel 02/06/25 E78.5 - Hyperlipidemia, unspecified, I10 - Essential (primary) hypertension, R53.83 - Other fatigue, R73.03 - Prediabetes Complete Blood Count Auto Diff 02/06/25 E78.5 - Hyperlipidemia, unspecified, I10 - Essential (primary) hypertension, R53.83 - Other fatigue, R73.03 - Prediabetes Lipid Panel 02/06/25 E78.5 - Hyperlipidemia, unspecified, I10 - Essential (primary) hypertension, R53.83 - Other fatigue, R73.03 - Prediabetes TSH reflex Free T4 02/06/25 E78.5 - Hyperlipidemia, unspecified, I10 - Essential (primary) hypertension, R53.83 - Other fatigue, R73.03 - Prediabetes Vitamin D 1,25 dihydroxy 02/06/25 E78.5 - Hyperlipidemia, unspecified, I10 - Essential (primary) hypertension, R53.83 - Other fatigue, R73.03 - Prediabetes Referrals Cologuard Test Z12.11 - Encounter for screening for malignant neoplasm of colon, Z12.12 - Encounter for screening for malignant neoplasm of rectum Medications: New calcium carbonate 1,200 mg (2 x 600 mg calcium (1,500 mg)) PO DAILY 180 tabs 3RF cholecalciferol (vitamin D3) 25 mcg PO DAILY 90 caps 3RF Refilled hydrochlorothiazide 25 mg PO QAM 90 tabs 3RF moexipril 15 mg PO DAILY 90 tabs 3RF pravastatin 20 mg PO DAILY 90 tabs 3RF amlodipine 10 mg PO DAILY 90 tabs 3RF
[2025-02-06 09:35] VITALS: BP 128/72; PULSE 88; RESP 14; O2SAT 98; BMI 28.3
--- OUTSIDE RECORDS SUMMARY | 2025-02-06 10:38 | XMS_ITS | Clinical Summary ---
Author Organization [facility] Address [address] [place] [address] Phone Care Team Providers Care Materials Management Clerk Name Role Phone Shirley Borjas MD Primary [...] file Insurance MEDICARE PART A & B [employer] MEDICARE SUPPLEMENT MEDICARE PART A & B [employer] MEDICARE SUPPLEMENT MEDICARE PART A & B [facility] MEDICARE SUPPLEMENT MEDICARE PART A & B [facility] MEDICARE SUPPLEMENT MEDICARE PART A & B [facility] MEDICARE SUPPLEMENT MEDICARE PART A & B [facility] [employer] MEDICARE SUPPLEMENT Care Teams Materials Management Clerk Relationship Specialty Start Date End Date Shirley Borjas MD PCP - General Internal Medicine 12/11/22 Additional Source Comments The information contained in this document represents components of the legal health record. It is not the complete legal health record.[facility]
== END 2025-02-06 10:06 | disposition home or self-care (01) ==
LOC: HO.HMCFM 09:28
PROVIDERS: PCP Internal Medicine; Visit Provider Internal Medicine
DX: I10 Essential (primary) hypertension (principal); E78.5 Hyperlipidemia, unspecified; H81.10 Benign paroxysmal vertigo, unspecified ear; M25.50 Pain in unspecified joint

== ENCOUNTER 2025-03-08 10:00 | Outpatient (RCR) | payer MEDICARE, OTHER, SELFPAY ==
[2025-01-17 07:59] VITALS: BP 131/67; PULSE 61
--- NOTE | 2025-01-17 15:30 | MHC.PT.EP ---
[facility] [place] [facility] [place] Office [place] Office [address] Dorothy Ocampo [address] [phone] F: [phone] F: [phone] F: [phone] F: [phone] Physical Therapy Plan of Care Date of Evaluation: 01/17/25 Date of Surgery: Diagnosis: Cervicalgia Dizziness and giddiness Assessment: Pt is a 74yo F who presents to PT with neck pain and dizziness. She presents to PT with current impairments in pain, decreased cervical ROM, soft tissue restrictions, impaired posture, and decreased balance. She is limited functionally by head rotation and turning quickly during mobility. Upon assessment, she was negative for posterior canal and horizontal canal BPPV B. Her symptoms may be consistent with vestibular hypofunction. She is a good candidate for skilled PT in order to address current impairments to facilitate return to PLOF. She is recommended to be seen 2x/week for 4 weeks and will be reassessed Frequency and Duration: The patient will be seen 2x/week for 4 weeks Short Term Goals: Pt will be I with HEP to promote self management of symptoms Pt will improve B cervical rotation by at least 10 degrees Fci Goals: Pt will achieve cervical rotation ROM WFL B to assist with functional tasks such as driving Pt will ambulate with head turns without pain or dizziness to assist with functional tasks such as grocery shopping Treatment Plan: Modalities to reduce pain, spasms and effusion. Manual therapy to restore motion and function. Therapeutic exercise to improve strength and flexibility. Neuromuscular re-education for posture and balance. Therapeutic activities to return to functional activities of daily living. Electronically signed by: Clemencia Adler, PT, DPT Please sign and return to therapist. Thank you for your referral.
--- NOTE | 2025-03-08 13:40 | MHC.PT.DC ---
[facility] [place] [facility] [place] Office [place] Office [address] Dorothy Ocampo [address] [phone] F: [phone] F: [phone] F: [phone] F: [phone] Physical Therapy Discharge Report Diagnosis: Cervicalgia Dizziness and giddiness Date of Surgery: Date of Evaluation: 01/17/25 Date of Discharge: 03/08/25 Treatments to Date: 9 Cancellations to Date: No Shows to Date: Discharge Status: Achieved Goals Improved Function Independent with HEP Discharge Summary: Pt has made good progress since SOC. She has improved her cervical ROM and has improved her postural awareness. Her dizziness has significantly improved. She is able to ambulate with changes in gait speed and ambulate with head turns without exacerbation of neck pain or dizziness. She does continue to have mild dizziness with quick change in direction however she has improved since SOC. She demonstrates independence with self management of symptoms. She is being D/C from skilled PT at this time. No further questions or concerns reported Electronically signed by: Clemencia Stack, PT, DPT Please sign and return to therapist. Thank you for your referral.
== END 2025-03-08 13:41 | disposition home or self-care (01) ==
LOC: HO.PT 10:00
PROVIDERS: PCP Internal Medicine; Visit Provider Psychiatry & Neurology Neurology
DX: M54.2 Cervicalgia (principal)
CPT/HCPCS: 95992; 97112; 97140; 97162